=== PATIENT | male | born 1960 | race Caucasian/White ===

== ENCOUNTER 2018-07-26 21:58 | Emergency (ER) | payer SELFPAY ==
[~2018-07-26 21:58] MED LIST: ALBMDV INH; AZIT-9 PO; CEP500 PO; DIA5 PO; FAM20 PO; GABA300T3 PO; HYDR-653 PO; IBU800 PO; LOR05 PO; LOR5 PO; LOR75 PO; MUCINEX; NONE PER PATIENT; OXYC-865 PO; PER PO; PHEN240S3 PO; PRE20 PO
--- NOTE | 2018-07-26 22:09 | ER Report ---
History and Physical Time Seen By MD: 22:09 Hx. of Stated Complaint: PT HAS HAD A MIGAINE SINCE 2PM. HPI/ROS CHIEF COMPLAINT: Migraine headache HISTORY OF PRESENT ILLNESS: This is a 58-year-old male. He has had a migraine headache since about 1400 hrs. He has associated photophobia. He has had nausea with several episodes of vomiting as well. He does get migraine headaches and these symptoms are typical for him. The only other abnormal symptoms he has been having recently have been some chronic muscle cramping which she has been treating with eating bananas and drinking increase fluids. He denies any fevers or chills. No double vision. No weakness in the extremities and no symptoms of sensory deficits. REVIEW OF SYSTEMS: Respiratory: No cough, no dyspnea. Cardiovascular: No chest pain, no palpitations. Gastrointestinal: No abdominal pain. Musculoskeletal: No musculoskeletal pain other than the cramps as noted. Genitourinary: Normal urination. Allergies: Coded Allergies: tetracycline (Verified Allergy, Intermediate, ITCHING, 06/22/17) naproxen (Verified Adverse Reaction, Mild, RESTLESSNESS, 06/22/17) Home Meds Active Scripts Ketorolac Tromethamine (KETOROLAC TROMETHAMINE) 10 Mg Tab, 10 MG PO Q6H PRN for HEADACHE, #12 TAB 0 Refills Prov:DWAYNE NIEVES MD 07/26/18 Promethazine Hcl (PROMETHAZINE HCL) 25 Mg Tablet, 25 MG PO Q8H PRN for HEADACHE, #12 TAB 0 Refills Prov:DWAYNE NIEVES MD 07/26/18 Reported Medications Gabapentin Enacarbil (Horizant) 300 Mg Tab.er.24h, 300 MG PO BID 06/22/17 Reviewed Nurses Notes: Yes Hx Smoking: Yes Smoking Status: Current: Every Day Smoker Exposure to Second Hand Smoke?: Yes Constitutional Vital Sign - Last 24 Hours 07/26/18 07/26/18 07/26/18 07/26/18 22:02 22:02 22:58 23:00 Temp 97.9 Pulse 140 98 Resp 16 B/P (MAP) 134/113 134/113 (120) 129/87 (101) Pulse Ox 94 91 O2 Delivery Room Air Physical Exam General Appearance: Alert, mild acute distress due to the headache.[ ] Eyes: Pupils are equal, round and reactive to light. Extraocular movements are intact. No nystagmus. He does have photophobia. ENT: Normal oral mucosa. Moist mucous membranes. Neck: Neck is supple and non tender. Respiratory: Chest is non tender, lungs are clear to auscultation. Cardiac: regular rate and rhythm Neuro: Alert and oriented 3. No focal neurologic deficits noted. Musculoskeletal: Extremities have full range of motion. Non tender. Skin: No rashes or lesions. DIFFERENTIAL DIAGNOSIS: After history and physical exam differential diagnosis was considered for migraine headache Medical Decision Making Data Points Result Diagram: 07/26/18 2206 Laboratory Hematology Test 07/26/18 22:06 Sodium Level 139 mmol/L (137-145) Potassium Level 3.9 mmol/L (3.5-5.0) Chloride Level 104 mmol/L (98-107) Carbon Dioxide Level 26 mmol/L (22-30) Blood Urea Nitrogen 10 mg/dl (9-21) Creatinine 1.10 mg/dl (0.66-1.25) Glomerular Filtration Rate Calc > 60.0 Random Glucose 117 mg/dl (75-110) Calcium Level 9.5 mg/dl (8.4-10.2) Magnesium Level 2.2 mg/dl (1.7-2.2) Total Bilirubin 0.5 mg/dl (0.2-1.3) Aspartate Amino Transf (AST/SGOT) 74 U/L (0-35) Alanine Aminotransferase (ALT/SGPT) 67 U/L (0-56) Alkaline Phosphatase 57 U/L (0-126) Total Protein 7.8 g/dl (6.3-8.2) Albumin 4.5 g/dl (3.5-5.0) Chemistry Test 07/26/18 22:06 Glomerular Filtration Rate Calc > 60.0 Calcium Level 9.5 mg/dl (8.4-10.2) Magnesium Level 2.2 mg/dl (1.7-2.2) Total Bilirubin 0.5 mg/dl (0.2-1.3) Aspartate Amino Transf (AST/SGOT) 74 U/L (0-35) Alanine Aminotransferase (ALT/SGPT) 67 U/L (0-56) Alkaline Phosphatase 57 U/L (0-126) Total Protein 7.8 g/dl (6.3-8.2) Albumin 4.5 g/dl (3.5-5.0) ED Course/Re-evaluation Clinical Indication for ER IV: IV Access ED Course Patient did have significant improvement with IV normal saline 1 L, Phenergan 12.5 mg IV, and a jolt 25 mg IV, and Toradol 15 mg IV. He did have a little bit of a muscle twitching after the Phenergan but the pain is completely resolved. Metabolic panel and magnesium are negative. Decision to Disposition Date: Jul 26, 2018 Decision to Disposition Time: 23:27 Depart Departure Latest Vital Signs Vital Signs Date Time Temp Pulse Resp B/P (MAP) Pulse Ox O2 Delivery O2 Flow Rate FiO2 07/26/18 23:00 129/87 (101) 07/26/18 22:58 98 91 07/26/18 22:02 97.9 16 Room Air Impression: Primary Impression: Migraine Condition: Improved Disposition: HOME OR SELF-CARE New Scripts Ketorolac Tromethamine (KETOROLAC TROMETHAMINE) 10 Mg Tab 10 MG PO Q6H PRN for HEADACHE, #12 TAB 0 Refills Prov: DWAYNE NIEVES MD 07/26/18 Promethazine Hcl (PROMETHAZINE HCL) 25 Mg Tablet 25 MG PO Q8H PRN for HEADACHE, #12 TAB 0 Refills Prov: DWAYNE NIEVES MD 07/26/18 Patient Instructions: Migraine Headache (ED) Problem Qualifiers Primary Impression: Migraine Migraine type: unspecified Status migrainosus presence: without status m igrainosus Intractability: not intractable Qualified Codes: G43.909 - Migraine, unspecified, not intractable, without status migrainosus DWAYNE NIEVES MD Jul 26, 2018 22:09
[2018-07-26] MEDS ORDERED: PROMETHAZINE 25 MG/ML 1 ML AMP IVP ONE (22:20)
[2018-07-26] MEDS ORDERED: diphenhydrAMINE 50 MG/ML VIAL IVP ONE (22:20)
[2018-07-26] MEDS ORDERED: NS(*) 0.9% 1000 ML BAG 1,000 ML IV ONE (22:20)
[2018-07-26] MEDS ORDERED: KETOROLAC 30 MG/ML VIAL IVP ONE (22:20)
[2018-07-26 23:00] VITALS: BP 129/87
[2018-07-26] MEDS ORDERED: KET10 PO (23:28)
[2018-07-26] MEDS ORDERED: PROM-110 PO (23:28)
== END 2018-07-26 23:35 | disposition home or self-care (01) ==
LOC: ER 22:10
DX: G43.909 Migraine, unspecified, not intractable, without status migrainosus (principal); F17.210 Nicotine dependence, cigarettes, uncomplicated
CPT/HCPCS: 83735; 96361; 96374; 96375; 99284; J1200; J1885; J2550; J7030; 82040; 82247; 82310; 82374; 82435; 82565; 82947; 84075; 84132; 84155; 84295; 84450; 84460; 84520

== ENCOUNTER 2018-12-02 18:37 | Emergency (ER) | payer BC ==
[~2018-12-02 18:37] MED LIST changes: +KET10 PO; +PROM-110 PO
--- NOTE | 2018-12-02 18:44 | ER Report ---
History and Physical Time Seen By MD: 18:44 HPI/ROS CHIEF COMPLAINT: Decreased hearing HISTORY OF PRESENT ILLNESS: 58-year-old male with a history of COPD and hypertension presents with difficulty hearing. 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 He notes no cold symptoms. No rhinitis, no sore throat. No fever or chills. He denies ear pain, but tonight notes hearing loss. He describes a tinnitus type sensation in his left ear like a radio station is buzzing on the radio. Patient while being evaluated, has a tachycardia to heart rate of 150s. He is asymptomatic. He does not note that he has his heart rate. Review of his previous records shows an old EKG from 06/22/17 with a normal sinus rhythm of 85 bpm. She denies sympathomimetic stacks a [place] drinks to [place] per day. Patient denies drug use. Patient states he took his Symbicort inhaler which he thinks is causing his heart rate,. He has no chest pain, no dizziness REVIEW OF SYSTEMS: Respiratory: No cough, no dyspnea. Cardiovascular: No chest pain, no palpitations. Gastrointestinal: No vomiting, no abdominal pain. Musculoskeletal: No back pain. Allergies: Coded Allergies: tetracycline (Verified Allergy, Intermediate, ITCHING, 06/22/17) naproxen (Verified Adverse Reaction, Mild, RESTLESSNESS, 06/22/17) Home Meds Reported Medications Gabapentin Enacarbil (Horizant) 300 Mg Tab.er.24h, 300 MG PO BID 06/22/17 Discontinued Scripts Ketorolac Tromethamine (KETOROLAC TROMETHAMINE) 10 Mg Tab, 10 MG PO Q6H PRN for HEADACHE, #12 TAB 0 Refills Prov:DWAYNE NIEVES MD 07/26/18 Promethazine Hcl (PROMETHAZINE HCL) 25 Mg Tablet, 25 MG PO Q8H PRN for HEADACHE, #12 TAB 0 Refills Prov:DWAYNE NIEVES MD 07/26/18 Reviewed Nurses Notes: Yes Old Medical Records Reviewed: Yes Hx Smoking: Yes Smoking Status: Current: Every Day Smoker Exposure to Second Hand Smoke?: Yes Constitutional Vital Sign - Last 24 Hours 12/02/18 12/02/18 12/02/18 12/02/18 18:42 18:52 19:00 19:07 Temp 98.7 Pulse 154 153 153 Resp 16 17 11 B/P (MAP) 112/82 98/74 (82) Pulse Ox 93 92 91 O2 Delivery Room Air 12/02/18 12/02/18 12/02/18 12/02/18 19:22 19:30 19:37 19:52 Pulse 152 154 151 Resp 19 25 15 B/P (MAP) 95/83 (87) Pulse Ox 90 92 92 12/02/18 12/02/18 12/02/18 12/02/18 20:00 20:07 20:12 20:17 Pulse 151 150 150 Resp 14 13 9 B/P (MAP) 90/71 (77) Pulse Ox 89 90 92 12/02/18 20:22 Pulse 154 Resp 24 Intake and Output 12/02/18 12/02/18 12/03/18 15:00 23:00 07:00 Intake Total 1000 ml Balance 1000 ml Physical Exam Vital signs stable, afebrile, pulse ox normal, tachycardia to the 150s General Appearance: The patient is alert, has no immediate need for airway p rotection and no current signs of toxicity. No acute distress HEENT: Pupils equal and round no injection. TMs appear retracted without redness or fluid. Oropharynx without redness or exudate Respiratory: Chest is non tender, lungs are clear to auscultation. No wheezing or rails Cardiac: regular rate and rhythm, tachycardia to the 150s without murmur Gastrointestinal: Abdomen is soft and non tender, no masses, bowel sounds normal. Musculoskeletal: Neck: Neck is supple and non tender. No thyromegaly, no lymphadenopathy Extremities have full range of motion and are non tender. No edema, no calf tenderness Skin: No rashes or lesions. DIFFERENTIAL DIAGNOSIS: After history and physical exam differential diagnosis was considered for eustachian tube dysfunction, otitis media, tachycardia, SVT, reentrant tachycardia Medical Decision Making Data Points Result Diagram: 12/02/18191612/02/181916 Laboratory Hematology Test 12/02/18 19:17 Red Blood Count 3.73 M/uL (4.00-5.60) Mean Corpuscular Volume 104.2 fL (80.0-96.0) Mean Corpuscular Hemoglobin 35.0 pg (26.0-33.0) Mean Corpuscular Hemoglobin Concent 33.6 g/dL (32.0-36.0) Red Cell Distribution Width 14.8 % (11.5-14.5) Mean Platelet Volume 6.9 fL (7.2-11.1) Neutrophils (%) (Auto) 55.0 % (39.4-72.5) Lymphocytes (%) (Auto) 37.3 % (17.6-49.6) Monocytes (%) (Auto) 5.8 % (4.1-12.4) Eosinophils (%) (Auto) 1.7 % (0.4-6.7) Basophils (%) (Auto) 0.2 % (0.3-1.4) Nucleated RBC Relative Count (auto) 0.0 /100WBC Neutrophils # (Auto) 5.0 K/uL (2.0-7.4) Lymphocytes # (Auto) 3.4 K/uL (1.3-3.6) Monocytes # (Auto) 0.5 K/uL (0.3-1.0) Eosinophils # (Auto) 0.2 K/uL (0.0-0.5) Basophils # (Auto) 0.0 K/uL (0.0-0.1) Nucleated RBC Absolute Count (auto) 0.00 K/uL Sodium Level 141 mmol/L (137-145) Potassium Level 3.8 mmol/L (3.5-5.0) Chloride Level 107 mmol/L (98-107) Carbon Dioxide Level 25 mmol/L (22-30) Blood Urea Nitrogen 19 mg/dl (9-21) Creatinine 1.20 mg/dl (0.66-1.25) Glomerular Filtration Rate Calc > 60.0 Random Glucose 103 mg/dl (75-110) Calcium Level 8.8 mg/dl (8.4-10.2) Magnesium Level 2.0 mg/dl (1.7-2.2) Total Bilirubin 0.5 mg/dl (0.2-1.3) Aspartate Amino Transf (AST/SGOT) 38 U/L (0-35) Alanine Aminotransferase (ALT/SGPT) 46 U/L (0-56) Alkaline Phosphatase 61 U/L (0-126) Troponin I < 0.012 ng/ml B-Type Natriuretic Peptide 144 pg/ml (0-100) Total Protein 6.7 g/dl (6.3-8.2) Albumin 3.9 g/dl (3.5-5.0) Thyroid Stimulating Hormone (TSH) 1.22 uIU/ml (0.46-4.68) Chemistry Test 12/02/18 19:17 White Blood Count 9.1 k/uL (4.5-11.0) Red Blood Count 3.73 M/uL (4.00-5.60) Hemoglobin 13.0 g/dL (14.0-18.0) Hematocrit 38.8 % (42.0-52.0) Mean Corpuscular Volume 104.2 fL (80.0-96.0) Mean Corpuscular Hemoglobin 35.0 pg (26.0-33.0) Mean Corpuscular Hemoglobin Concent 33.6 g/dL (32.0-36.0) Red Cell Distribution Width 14.8 % (11.5-14.5) Platelet Count 237 K/uL (150-450) Mean Platelet Volume 6.9 fL (7.2-11.1) Neutrophils (%) (Auto) 55.0 % (39.4-72.5) Lymphocytes (%) (Auto) 37.3 % (17.6-49.6) Monocytes (%) (Auto) 5.8 % (4.1-12.4) Eosinophils (%) (Auto) 1.7 % (0.4-6.7) Basophils (%) (Auto) 0.2 % (0.3-1.4) Nucleated RBC Relative Count (auto) 0.0 /100WBC Neutrophils # (Auto) 5.0 K/uL (2.0-7.4) Lymphocytes # (Auto) 3.4 K/uL (1.3-3.6) Monocytes # (Auto) 0.5 K/uL (0.3-1.0) Eosinophils # (Auto) 0.2 K/uL (0.0-0.5) Basophils # (Auto) 0.0 K/uL (0.0-0.1) Nucleated RBC Absolute Count (auto) 0.00 K/uL Glomerular Filtration Rate Calc > 60.0 Calcium Level 8.8 mg/dl (8.4-10.2) Magnesium Level 2.0 mg/dl (1.7-2.2) Total Bilirubin 0.5 mg/dl (0.2-1.3) Aspartate Amino Transf (AST/SGOT) 38 U/L (0-35) Alanine Aminotransferase (ALT/SGPT) 46 U/L (0-56) Alkaline Phosphatase 61 U/L (0-126) Troponin I < 0.012 ng/ml B-Type Natriuretic Peptide 144 pg/ml (0-100) Total Protein 6.7 g/dl (6.3-8.2) Albumin 3.9 g/dl (3.5-5.0) Thyroid Stimulating Hormone (TSH) 1.22 uIU/ml (0.46-4.68) EKG/Imaging EKG Interpretation 12 lead EK Rhythm: Sinus tachycardia, rate 153 bpm, narrow complex with nonspecific interventricular conduction block is also short [place] interval noted [place]: normal QRS: normal ST segments: normal, comparison to previous EKG dated 06/22/17 normal sinus rhythm with normal morphology ED Course/Re-evaluation Clinical Indication for ER IV: IV Access ED Course Patient was admitted to an examination room. H&P was done. The differential diagnoses was considered. Patient presented for hearing loss in his bilateral ears. He has some chronic nasal congestion and a chronic cough secondary to COPD patient was noted to be tachycardic on his routine vital signs heart rate of 150. Patient denies any chest pain, shortness of breath or discomfort. He denies dizziness or syncope. Patient thinks its due to his recent use of his inhaler. Patient's ears are consistent with retractions [place] tubes have been on able to equalize. There is no erythema to suggest infection. There is no fluid behind the drums. Patient's advised to conservative treatment plan of Nasonex and Afrin. Since he is tachycardic was reluctant advised him to take decongestants orally. Patient had a peripheral IV established. An EKG was done documenting his rhythm. Patient's diagnostic laboratory studies were negative. He was treated with diltiazem 10 mg IV 3. With no change in his heart rhythm. I discussed further options treatment with the patient. He was reluctant to stick around her persistent delayed in any further diagnostic treatment. He is advised to follow-up with tx s primary care the treat his COPD for further evaluation and management of this tachycardia. Decision to Disposition Date: Dec 02, 2018 Decision to Disposition Time: 19:52 Depart Departure Latest Vital Signs Vital Signs Date Time Temp Pulse Resp B/P (MAP) Pulse Ox O2 Delivery O2 Flow Rate FiO2 12/02/18 20:22 154 24 12/02/18 20:17 92 12/02/18 20:00 90/71 (77) 12/02/18 18:42 98.7 Room Air Impression: Primary Impression: Eustachian tube dysfunction Additional Impressions: Tachycardia COPD (chronic obstructive pulmonary disease) Condition: Improved Disposition: HOME OR SELF-CARE Referrals: ROBERT RAGLAND MD, JR,CARMELA Lunsford MD Patient Instructions: Atrial Tachycardia (ED), Eustachian Tube Dysfunction (GEN) Additional Instructions: Use Nasonex cortisone spray for urinary is which can buy [id number] without prescription and Afrin decongestant spray for 3-4 days Follow-up with Dr. Ferguson if her hearing doesn't improve next week Follow-up with Dr. Ragland for further evaluation and treatment of her tachycardia. Problem Qualifiers Primary Impression: Eustachian tube dysfunction Laterality: bilateral Qualified Codes: H69.83 - Other specified disorders of eustachian tube, bilateral Additional Impressions: COPD (chronic obstructive pulmonary disease) COPD type: unspecified COPD Qualified Codes: J44.9 - Chronic obstructive pulmonary disease, unspecified DARYL PIÑA DO Dec 02, 2018 18:44
[2018-12-02] MEDS ORDERED: NS(*) 0.9% 1000 ML BAG 1,000 ML IV ONE (19:06)
[2018-12-02] MEDS ORDERED: DILTIAZEM 5 MG/ML 5ML IVPUSH IVP ONE ×2 (19:10→19:50)
[2018-12-02 19:38] LABS: PLATELET COUNT, AUTOMATED 237 K/uL (150-450)
[2018-12-02 20:00] VITALS: BP 90/71
--- NOTE | 2018-12-02 22:37 | EKG ---
[place] [facility] [place] NAME: SULEMAN CORREA : [id number] MR: [id number] V: [id number] EXAM DATE: ORDERING PHYSICIAN: DARYL PIÑA TECHNOLOGIST: MORRIS Test Reason : TACHY Blood Pressure : / mmHG Vent. Rate : 153 BPM Atrial Rate : 153 BPM P-R Int : 088 ms QRS Dur : 150 ms QT Int : 346 ms P-R-T Axes : 000 079 -81 degrees QTc Int : 552 ms Sinus tachycardia with short [place] Nonspecific intraventricular block Inferior infarct , age undetermined Abnormal ECG When compared with ECG of 22-JUN-2017 20:27, Rate is increased Confirmed by Sav Stanton ([id number]) on 12/03/2018 7:23:59 AM Referred By: AYANA Confirmed By:Sav Torre
== END 2018-12-02 20:28 | disposition home or self-care (01) ==
LOC: ER 18:46
DX: H69.83 Other specified disorders of Eustachian tube, bilateral (principal); J44.9 Chronic obstructive pulmonary disease, unspecified; R00.0 Tachycardia, unspecified; F17.200 Nicotine dependence, unspecified, uncomplicated
CPT/HCPCS: 83735; 83880; 84443; 84484; 85025; 93005; 96361; 96374; 96376; 99284; J3490; J7030; 82040; 82247; 82310; 82374; 82435; 82565; 82947; 84075; 84132; 84155; 84295; 84450; 84460; 84520

== ENCOUNTER 2018-12-20 21:24 | Inpatient (IN) | payer BC ==
[~2018-12-20] VITALS: Ht 182.9 cm; Wt 86.2 kg
--- NOTE | 2018-12-20 21:33 | ER Report ---
History and Physical Time Seen By MD: 21:33 Hx. of Stated Complaint: OUT OF SYMBICORT; STATES TROUBLE BREATHING HPI/ROS CHIEF COMPLAINT: Short of breath HISTORY OF PRESENT ILLNESS: This is a 58-year-old male. He has been short of breath for several days now. He feels this is because he is out of his Symbicort inhaler. Wheeze brought back to the room, his pulse is rapid at 150s. I was able to review his last note where he had eustachian tube dysfunction and at that time he had a rapid rate as well. It was run responsive to diltiazem IV boluses at that time and the patient elected to leave without further treatment. He does not know that his heart is racing and doesn't feel any palpitations or chest pain. Has never had any heart arrhythmias that he is aware of in the past. He denies any nausea or vomiting. No problem with bowel or bladder function. He does have some coughing at times that he attributes to his normal COPD. Allergies: Coded Allergies: tetracycline (Verified Allergy, Intermediate, ITCHING, 06/22/17) naproxen (Verified Adverse Reaction, Mild, RESTLESSNESS, 06/22/17) Home Meds Reported Medications Gabapentin Enacarbil (Horizant) 300 Mg Tab.er.24h, 300 MG PO BID 06/22/17 Reviewed Nurses Notes: Yes Hx Smoking: Yes Smoking Status: Current: Every Day Smoker Exposure to Second Hand Smoke?: Yes Constitutional Vital Sign - Last 24 Hours 12/20/18 12/20/18 12/20/18 12/20/18 21:24 21:28 21:29 21:45 Temp 97.9 Pulse ??? 154 Resp 17 B/P (MAP) 106/87 106/87 (93) 96/74 (81) Pulse Ox 92 O2 Delivery Room Air 12/20/18 12/20/18 12/20/18 12/20/18 21:54 21:58 22:00 22:15 Pulse 154 Resp 19 B/P (MAP) 97/76 (83) 104/78 (87) Pulse Ox 91 O2 Flow Rate 2.0 12/20/18 12/20/18 12/20/18 12/20/18 22:19 22:19 22:24 22:28 Pulse 152 152 152 Resp 18 13 18 Pulse Ox 95 98 O2 Delivery Nasal Cannula O2 Flow Rate 2.5 12/20/18 12/20/18 12/20/18 12/20/18 22:30 22:45 22:54 23:00 Pulse 152 Resp 20 B/P (MAP) 102/75 (84) 107/80 (89) 107/80 (89) Pulse Ox 97 12/20/18 12/20/18 12/20/18 12/20/18 23:15 23:20 23:30 23:45 Pulse 152 Resp 23 B/P (MAP) 101/79 (86) 108/82 (91) 104/77 (86) Pulse Ox 96 12/20/18 12/21/18 12/21/18 12/21/18 23:50 00:00 00:20 00:30 Pulse 153 150 Resp 28 19 B/P (MAP) 105/76 (86) 103/88 (93) Pulse Ox 95 94 12/21/18 12/21/18 12/21/18 12/21/18 01:00 01:20 01:20 01:30 Pulse 151 152 Resp 17 17 B/P (MAP) 108/84 (92) 89/78 (82) Pulse Ox 96 96 12/21/18 12/21/18 12/21/18 12/21/18 01:33 01:33 01:43 01:50 Pulse 152 152 149 Resp 18 18 11 Pulse Ox 93 95 O2 Delivery Nasal Cannula O2 Flow Rate 2.5 Physical Exam General Appearance: The patient is alert. No acute distress. Eyes: Pupils are equal, round. Reactive to light. No pallor, injection or icterus. Extraocular movements are intact. ENT: Mucous membranes are moist. Normal oral mucosa. Posterior oropharynx is normal. Neck: Supple and non tender. Respiratory: Lungs have a little bit of wheezing but are otherwise clear. There are no retractions or accessory muscle use. Cardiovascular: Heart is tachycardic rate of 152, regular. No murmurs, gallops or rubs. Normal capillary refill. Trace edema. Gastrointestinal: Abdomen is soft and non tender. Nondistended. Normal active bowel sounds. Neurological: Alert and oriented x3. Skin: Warm and dry. DIFFERENTIAL DIAGNOSIS: After history and physical exam, differential diagnosis was considered for patient with shortness of breath that appears like it's due to his rapid heart rate at this point. Looks like this could be SVT versus atrial flutter with rapid rate. Medical Decision Making Data Points Result Diagram: 12/20/18213512/20/182135 Laboratory Hematology Test 12/20/18 21:36 Red Blood Count 3.93 M/uL (4.00-5.60) Mean Corpuscular Volume 103.2 fL (80.0-96.0) Mean Corpuscular Hemoglobin 34.0 pg (26.0-33.0) Mean Corpuscular Hemoglobin Concent 33.0 g/dL (32.0-36.0) Red Cell Distribution Width 14.2 % (11.5-14.5) Mean Platelet Volume 7.0 fL (7.2-11.1) Neutrophils (%) (Auto) 72.4 % (39.4-72.5) Lymphocytes (%) (Auto) 19.8 % (17.6-49.6) Monocytes (%) (Auto) 5.5 % (4.1-12.4) Eosinophils (%) (Auto) 0.9 % (0.4-6.7) Basophils (%) (Auto) 1.4 % (0.3-1.4) Nucleated RBC Relative Count (auto) 0.0 /100WBC Neutrophils # (Auto) 8.7 K/uL (2.0-7.4) Lymphocytes # (Auto) 2.4 K/uL (1.3-3.6) Monocytes # (Auto) 0.7 K/uL (0.3-1.0) Eosinophils # (Auto) 0.1 K/uL (0.0-0.5) Basophils # (Auto) 0.2 K/uL (0.0-0.1) Nucleated RBC Absolute Count (auto) 0.00 K/uL Peripheral Blood Smear Yes Y/N D-Dimer Quantitative (PE/DVT) 0.30 ug/ml (0-0.50) Sodium Level 140 mmol/L (137-145) Potassium Level 3.8 mmol/L (3.5-5.0) Chloride Level 109 mmol/L (98-107) Carbon Dioxide Level 24 mmol/L (22-30) Blood Urea Nitrogen 22 mg/dl (9-21) Creatinine 1.20 mg/dl (0.66-1.25) Glomerular Filtration Rate Calc > 60.0 Random Glucose 82 mg/dl (75-110) Calcium Level 8.9 mg/dl (8.4-10.2) Total Bilirubin 0.4 mg/dl (0.2-1.3) Aspartate Amino Transf (AST/SGOT) 59 U/L (0-35) Alanine Aminotransferase (ALT/SGPT) 50 U/L (0-56) Alkaline Phosphatase 73 U/L (0-126) Troponin I < 0.012 ng/ml B-Type Natriuretic Peptide 210 pg/ml (0-100) Total Protein 7.1 g/dl (6.3-8.2) Albumin 4.2 g/dl (3.5-5.0) Chemistry Test 12/20/18 21:36 White Blood Count 12.1 k/uL (4.5-11.0) Red Blood Count 3.93 M/uL (4.00-5.60) Hemoglobin 13.4 g/dL (14.0-18.0) Hematocrit 40.5 % (42.0-52.0) Mean Corpuscular Volume 103.2 fL (80.0-96.0) Mean Corpuscular Hemoglobin 34.0 pg (26.0-33.0) Mean Corpuscular Hemoglobin Concent 33.0 g/dL (32.0-36.0) Red Cell Distribution Width 14.2 % (11.5-14.5) Platelet Count 252 K/uL (150-450) Mean Platelet Volume 7.0 fL (7.2-11.1) Neutrophils (%) (Auto) 72.4 % (39.4-72.5) Lymphocytes (%) (Auto) 19.8 % (17.6-49.6) Monocytes (%) (Auto) 5.5 % (4.1-12.4) Eosinophils (%) (Auto) 0.9 % (0.4-6.7) Basophils (%) (Auto) 1.4 % (0.3-1.4) Nucleated RBC Relative Count (auto) 0.0 /100WBC Neutrophils # (Auto) 8.7 K/uL (2.0-7.4) Lymphocytes # (Auto) 2.4 K/uL (1.3-3.6) Monocytes # (Auto) 0.7 K/uL (0.3-1.0) Eosinophils # (Auto) 0.1 K/uL (0.0-0.5) Basophils # (Auto) 0.2 K/uL (0.0-0.1) Nucleated RBC Absolute Count (auto) 0.00 K/uL Peripheral Blood Smear Yes Y/N D-Dimer Quantitative (PE/DVT) 0.30 ug/ml (0-0.50) Glomerular Filtration Rate Calc > 60.0 Calcium Level 8.9 mg/dl (8.4-10.2) Total Bilirubin 0.4 mg/dl (0.2-1.3) Aspartate Amino Transf (AST/SGOT) 59 U/L (0-35) Alanine Aminotransferase (ALT/SGPT) 50 U/L (0-56) Alkaline Phosphatase 73 U/L (0-126) Troponin I < 0.012 ng/ml B-Type Natriuretic Peptide 210 pg/ml (0-100) Total Protein 7.1 g/dl (6.3-8.2) Albumin 4.2 g/dl (3.5-5.0) Coagulation Test 12/20/18 21:36 D-Dimer Quantitative (PE/DVT) 0.30 ug/ml EKG/Imaging EKG Interpretation 12 lead EKG: Rhythm: Atrial flutter, rate 152 Imaging AP CHEST 12/20/2018 9:44 PM. INDICATION: Shortness of breath, tachycardia, history COPD. COMPARISON: 06/22/2017. FINDINGS: Lungs are hyperexpanded with diffuse bronchial wall thickening. Streaky left basilar opacity likely represents scarring. No pleural effusion or pneumothorax. Heart size is upper limit normal. IMPRESSION: Findings consistent with reported COPD and probable scarring at the left base. Underlying infectious or inflammatory airways disease not excluded, though there is no evidence of focal pneumonia. Report Dictated By: Mani Tadeo MD at 12/20/2018 11:12 PM ED Course/Re-evaluation Clinical Indication for ER IV: IV Access ED Course Initial attempted adenosine with 6 mg followed by 12 mg was unsuccessful at converting or even causing the heart. DuoNeb and Solu-Medrol were given to help with breathing to see if this would help without any change. Discussed causes of atrial flutter with the patient. Recommended admission. Gave diltiazem 25 mg IV bolus which did not slow the heart rate down at all. Discussed the case with Dr. Patel, hospitalist who came and evaluated the patient in the ER and accepted the patient for admission. Decision to Disposition Date: Dec 21, 2018 Decision to Disposition Time: 01:29 Depart Departure Latest Vital Signs Vital Signs Date Time Temp Pulse Resp B/P (MAP) Pulse Ox O2 Delivery O2 Flow Rate FiO2 12/21/18 01:50 149 11 95 12/21/18 01:33 Nasal Cannula 2.5 12/21/18 01:30 89/78 (82) 12/20/18 21:28 97.9 Impression: Primary Impression: Atrial flutter Condition: Condition Unchanged Disposition: Admitted from ER Problem Qualifiers Primary Impression: Atrial flutter Atrial flutter type: unspecified Qualified Codes: I48.92 - Unspecified atrial flutter DWAYNE NIEVES MD Dec 20, 2018 21:33
[2018-12-20] MEDS ORDERED: NS(*) 0.9% 1000 ML BAG 1,000 ML IV ONE (21:45)
[2018-12-20] MEDS ORDERED: ADENOSINE(*)IV SOLN 3MG/ML IVP ONE ×2 (21:45→22:10)
[2018-12-20 21:58] LABS: PLATELET COUNT, AUTOMATED 252 K/uL (150-450)
[2018-12-20] MEDS ORDERED: ALBUTEROL/IPRATROPIUM 3 ML NEB NEB ONE (22:10)
[2018-12-20] MEDS ORDERED: methylPREDNIS SUCC 125 MG/2ML IVP ONE (22:10)
--- NOTE | 2018-12-20 23:18 | EKG ---
FACILITY: PATIENT NAME: SULEMAN CORREA : [id number] MR: [id number] V: [id number] EXAM DATE: ORDERING PHYSICIAN: DWAYNE NIEVES TECHNOLOGIST: JANET Pop Reason : Blood Pressure : / mmHG Vent. Rate : 155 BPM Atrial Rate : 310 BPM P-R Int : 000 ms QRS Dur : 092 ms QT Int : 262 ms P-R-T Axes : 254 075 -42 degrees QTc Int : 420 ms Atrial flutter with RVR Low voltage QRS Abnormal ECG When compared with ECG of 02-DEC-2018 18:50, Relatively unchanged Confirmed by MOE PEREIRA ([id number]) on 12/21/2018 12:11:55 AM Referred By: Confirmed By:MOE PEREIRA
--- NOTE | 2018-12-20 23:19 | RADIOLOGY IMAGING REPORT ---
FACILITY: [facility] - [place] PATIENT NAME: Simone Wade : 1960 MR: [id number] V: [id number] EXAM DATE: ORDERING PHYSICIAN: DWAYNE NIEVES TECHNOLOGIST: Location: [facility] - [place] Patient: Simone Wade : 1960 Visit/Account:[id number] Date of Sevice: 12/20/2018 AP CHEST 12/20/2018 9:44 PM. INDICATION: Shortness of breath, tachycardia, history COPD. COMPARISON: 06/22/2017. FINDINGS: Lungs are hyperexpanded with diffuse bronchial wall thickening. Streaky left basilar opacity likely represents scarring. No pleural effusion or pneumothorax. Heart size is upper limit normal. IMPRESSION: Findings consistent with reported COPD and probable scarring at the left base. Underlyin g infectious or inflammatory airways disease not excluded, though there is no evidence of focal pneum onia. Report Dictated By: Mani Tadeo MD at 12/20/2018 11:12 PM Report E-Signed By: Mani Tadeo MD at 12/20/2018 11:14 PM WSN:[id number]
[2018-12-20] MEDS ORDERED: DIAZEPAM 2 MG TAB PO ONE (23:45)
[2018-12-20] MEDS ORDERED: DILTIAZEM 5 MG/ML 5ML IVPUSH IVP ONE (23:45)
[2018-12-21] MEDS ORDERED: ALBUTEROL/IPRATROPIUM 3 ML NEB NEB ONE (01:30)
[2018-12-21] MEDS ORDERED: FUROSEMIDE 20 MG/2 ML VIAL IVP ONE (01:55)
[2018-12-21] MEDS ORDERED: INFLUENZA VIRUS VAC 0.5ML SYR IM ONLY ONE (01:55)
[2018-12-21] MEDS ORDERED: LEVALBUTEROL 1.25 MG/3 ML NEB NEB PRN ×2 (01:55→20:25)
[2018-12-21] MEDS: NICOTINE 7 MG/24 HR PATCH TD SCH ×2 (01:55→09:00)
[2018-12-21] MEDS ORDERED: DILTIAZEM HCL 125 MG/25 ML SDV 125 MG in NS(*) 0.9% 100 ML BAG 100 ML IV PRN (01:55)
[2018-12-21] MEDS ORDERED: DILTIAZEM 5 MG/ML 5ML IVPUSH IVP ONE (01:55)
--- NOTE | 2018-12-21 02:23 | History & Physical ---
History of Present Illness History of Present Illness 58yo male with COPD who came to the ER for SOB. He has had SOB for about a month. He occasionally will have LE edema at the end of the day. Over 2 weeks ago, he was in the ER for eustachian tube dysfunction and was found to have an elevated heart rate of 150bpm. He was asymptomatic. It didn't respond to Dil tiazem 10mg IV x3. The patient wanted to go home and f/u with his PCP. He ran out of his Symbicort a couple of days ago and is more SOB. He continues to smoke about 5 cigarettes/day. He denies orthopnea/f/c/pnd/cp. No new medications or supplements. In the ER, he received a neb, adenosine 6mg and 12mg, and Diltiazem 25mg IV. Nothing helped his SOB nor slowed his heart rate down. History Problems: (1) COPD (chronic obstructive pulmonary disease) Status: Chronic (2) Carpal tunnel syndrome Status: Chronic (3) Cigarette smoker Status: Chronic Home Meds Reported Medications Gabapentin Enacarbil (Horizant) 300 Mg Tab.er.24h, 300 MG PO BID 06/22/17 Allergies: Coded Allergies: tetracycline (Verified Allergy, Intermediate, ITCHING, 06/22/17) naproxen (Verified Adverse Reaction, Mild, RESTLESSNESS, 06/22/17) Hx Smoking: Yes Smoking Status: Current: Every Day Smoker Exposure to Second Hand Smoke?: Yes Hx Alcohol Use: No Review of Systems All Systems Reviewed/Normal: Yes, Except as Noted Exam Vital Signs Vital Signs Date Time Temp Pulse Resp B/P (MAP) Pulse Ox O2 Delivery O2 Flow Rate FiO2 12/21/18 01:50 149 11 95 12/21/18 01:33 Nasal Cannula 2.5 12/21/18 01:30 89/78 (82) 12/20/18 21:28 97.9 General Appearance: Alert, Awake, Other (mild to moderate increased wob) Neuro: No Gross deficits Eyes: PERRLA ENT: Moist Mucous Membranes Cardiovascular: Other (Tachy, reg, no m/r/g) Respiratory: Other (Insp crackles to mid lungs) GI: Abd Soft and Non-Tender Extremities: No Edema Integumentary: No Jaundice, No Cyanosis Medical Decision Making Data Points Result Diagram: 3/09/28 213612/20/182135 Item Value Date Time B-Type Natriuretic Peptide 210 pg/ml H 12/20/182135 Troponin I < 0.012 ng/ml 12/20/182135 Total Bilirubin 0.4 mg/dl 12/20/182135 Aspartate Amino Transf (AST/SGOT) 59 U/L H 12/20/182135 Alanine Aminotransferase (ALT/SGPT) 50 U/L 12/20/182135 Alkaline Phosphatase 73 U/L 12/20/182135 Magnesium Level 2.0 mg/dl 12/02/181916 Hemoglobin 13.4 g/dL L 12/20/182135 Neutrophils (%) (Auto) 72.4 % 12/20/182135 Lymphocytes (%) (Auto) 19.8 % 12/20/182135 Monocytes (%) (Auto) 5.5 % 12/20/182135 Eosinophils (%) (Auto) 0.9 % 12/20/182135 Basophils (%) (Auto) 1.4 % 12/20/182135 EKG / Imaging EKG Interpretation Vent. Rate : 155 BPM Atrial Rate : 310 BPM P-R Int : 000 ms QRS Dur : 092 ms QT Int : 262 ms P-R-T Axes : 254 075 -42 degrees QTc Int : 420 ms Atrial flutter with RVR Low voltage QRS Abnormal ECG When compared with ECG of 02-DEC-2018 18:50, Relatively unchanged Confirmed by MOE PEREIRA ([id number]) on 12/21/2018 12:11:55 AM Imaging CXR - Findings consistent with reported COPD and probable scarring at the left base. Underlying infectious or inflammatory airways disease not excluded, though there is no evidence of focal pneumonia. Assessment and Plan Problems: (1) Atrial flutter Status: Acute Assessment & Plan: He presented with progressive SOB over about a month. He was in atrial flutter on 12/02 when in the ER. He reports a normal heart rate in October at a clinic appointment. He was asymptomatic, but now likely has some pulmonary edema related to the chronic tachycardia. He will be loaded with diltiazem 20mg and started on a drip at 15mg an hour. Likely, that will not be affective, so will start digoxin loading (because of low normal BP) 0.5mg, then 0.125mg 4 hours later. He will get an echo and TSH. He will be started on Eliquis for stroke prophylaxis, but will need to clear with his insurance before discharge. (2) Elevated brain natriuretic peptide (BNP) level Status: Acute Assessment & Plan: Secondary to RVR and pulmonary edema. Will follow with treatment of above. (3) COPD (chronic obstructive pulmonary disease) Status: Chronic Assessment & Plan: Lungs without wheezing. Continue chronic Symbicort, Spiriva. Will use prn Xopenex secondary to the atrial flutter. Nicotine patch at 7mg while in the hospital because he continues to smoke. (4) Cigarette smoker Status: Chronic Assessment & Plan: See above. Copies to: CATHERINE CRESPO APRN [employer] ; Venous Thromboembolism Antithrombotics Is Pt On Any Antithrombotics?: No Exam Sepsis Risk: No Definite Risk Problem Qualifiers (1) Atrial flutter: Atrial flutter type: unspecified Qualified Codes: I48.92 - Unspecified atrial flutter MOE PEREIRA MD Dec 21, 2018 02:23
[2018-12-21 02:45] VITALS: BP 93/69
[2018-12-21] MEDS ORDERED: BUDE10.2 INH (02:57)
[2018-12-21] MEDS ORDERED: TIO18R INH (02:57)
[2018-12-21] MEDS ORDERED: ALB6.7R INH (02:57)
[2018-12-21] MEDS ORDERED: DIGOXIN 0.5 MG/2 ML AMP IVP ONE ×3 (03:00→13:40)
[2018-12-21] MEDS ORDERED: NS 0.9% 500 ML VISIV BAG IV PRN (03:15)
[2018-12-21] MEDS ORDERED: NS(*) 0.9% 100 ML BAG 100 ML in NS(*) 0.9% 100 ML BAG 100 ML IVPB PRN (03:25)
[2018-12-21] MEDS ORDERED: NS(*) 0.9% 100 ML BAG 100 ML ONE (03:34)
[2018-12-21] MEDS: BUDESO/FORMOT 160/4.5 MCG 6 GM INH SCH ×3 (06:00→16:45)
[2018-12-21] MEDS: TIOTROPIUM BROM INH 18 MCG/CAP INH SCH (06:00)
[2018-12-21] MEDS ORDERED: NS(*) 0.9% 500 ML BAG 500 ML IV PRN (07:45)
[2018-12-21 08:21] VITALS: Ht 182.9 cm; Wt 86.2 kg
[2018-12-21] MEDS: GABAPENTIN 300 MG CAP PO SCH ×3 (08:29→20:30)
[2018-12-21] MEDS: POTASSIUM CHL 10 MEQ TABCR PO SCH ×2 (08:29→17:15)
[2018-12-21] MEDS: APIXABAN 2.5 MG TABLET PO SCH ×2 (08:30→20:31)
[2018-12-21] MEDS ORDERED: NS(*) 0.9% 250 ML BAG 250 ML in NS(*) 0.9% 250 ML BAG 250 ML IV SCH (09:00)
--- NOTE | 2018-12-21 10:17 | Hospitalist Progress Note ---
Subjective Progress Notes Subjective This patient was admitted for atrial flutter. He had no acute events since admission. Patient Complains of: Cardiovascular: No: Chest Pain Respiratory: No: Shortness of Breath Physical Exam Vital Signs Date Time Temp Pulse Resp B/P (MAP) Pulse Ox O2 Delivery O2 Flow Rate FiO2 12/21/18 08:00 82 12/21/18 08:00 Nasal Cannula 2.0 12/21/18 02:45 152 12/21/18 02:45 97.4 26 93/69 (77) Intake and Output 12/21/18 07:00 Intake Total 1000 ml Balance 1000 ml Intake IV Total 1000 ml # Voids 1 Cardiovascular: Other (Tachycardic.) Respiratory: Clear to Auscultation Extremities: No Edema Result Diagram: 12/20/18213512/20/182135 Assessment and Plan Problems: (1) Atrial flutter Status: Acute Assessment & Plan: He presented with progressive shortness of breath and was found to be in atrial flutter. He was initially placed on a diltiazem infusion, but was not responding to this. He was then placed on a digoxin load. We will continue with the digoxin this morning and try to wean off the diltiazem. He has been placed on Eliquis at admission, but was likely in Afib/flutter for at least a month prior to admission. He will need two weeks of anticoagulation prior to any attempts at cardioversion. (2) Elevated brain natriuretic peptide (BNP) level Status: Acute Assessment & Plan: An echocardiogram has been ordered. (3) COPD (chronic obstructive pulmonary disease) Status: Chronic Assessment & Plan: He is on chronic treatment with Symbicort and Spiriva. We have substituted Xopenex for his albuterol. (4) Cigarette smoker Status: Chronic Assessment & Plan: Smoking cessation. Exam Sepsis Risk: No Definite Risk Problem Qualifiers (1) Atrial flutter: Atrial flutter type: unspecified Qualified Codes: I48.92 - Unspecified atrial flutter BUBBA UMANA DO Dec 21, 2018 10:17
[2018-12-21 11:22] VITALS: BP 91/64
[2018-12-21 17:27] VITALS: BP 69/64
[2018-12-21 19:33] VITALS: BP 105/75
[2018-12-21] MEDS: NICOTINE 21 MG/24 HR PATCH TD SCH (20:52)
[2018-12-21 23:00] VITALS: BP 100/78
[2018-12-22] VITALS (7 sets, daily range): BP systolic 90–118; BP diastolic 69–86
[2018-12-22 05:10] LABS: PLATELET COUNT, AUTOMATED 227 K/uL (150-450)
[2018-12-22] MEDS: BUDESO/FORMOT 160/4.5 MCG 6 GM INH SCH ×3 (06:20→17:16)
[2018-12-22] MEDS: TIOTROPIUM BROM INH 18 MCG/CAP INH SCH (06:33)
[2018-12-22] MEDS ORDERED: METOPROLOL TART 5 MG/5 ML VIAL IVP ONE ×2 (08:10→14:00)
--- NOTE | 2018-12-22 08:24 | Hospitalist Progress Note ---
Subjective Progress Notes Subjective He has some persistent dyspnea and hypoxia requiring 4L O2. HR has continued at 150 with a-flutter 2:1 block. Physical Exam Vital Signs Date Time Temp Pulse Resp B/P (MAP) Pulse Ox O2 Delivery O2 Flow Rate FiO2 12/22/18 06:25 151 12/22/18 05:06 98.2 20 118/86 (97) 95 Nasal Cannula 4.0 Intake and Output 12/22/18 06:59 Intake Total 1265 ml Balance 1265 ml Intake Oral 1140 ml IV Total 125 ml # Voids 4 General Appearance: Alert, Awake Cardiovascular: Other (Tachycardic regular no murmur noted) Respiratory: Other (few rales at bases with soft expiratory wheeze) Chest: No Tenderness GI: Soft and Non-Tender Extremities: Warm, Perfused Integumentary: Skin Intact without Lesion / Mass Psych: Alert & Oriented X3 Result Diagram: 12/22/18 0504 12/22/18 0504 Assessment and Plan Problems: (1) Atrial flutter Status: Acute Assessment & Plan: He presented with progressive shortness of breath and was found to be in atrial flutter. He was initially placed on a diltiazem infusion, but was hypotensive and not responding to this. He was then given a digoxin load. We will continue with the digoxin and try a dose of metoprolol. He has been placed on Eliquis at admission, but was likely in A-fib/flutter for at least a month prior to admission. He will likely need two weeks of anticoagulation prior to cardioversion. Unfortunately, we have not been able to gain rate control. Will discuss further with cardiology regarding other options for rate control and possible early cardioversion. Big question would be risk of embolization with cardioversion after short term anticoagulation vs. continued HR in 150s without rate control. (2) Elevated brain natriuretic peptide (BNP) level Status: Acute Assessment & Plan: Echocardiogram results are pending. (3) COPD (chronic obstructive pulmonary disease) Status: Chronic Assessment & Plan: He is on chronic treatment with albuterol, Symbicort and Spiriva. We have substituted Xopenex for his albuterol. (4) Cigarette smoker Status: Chronic Assessment & Plan: He states he has quit ("it's been 2 days now"). Smoking cessation. Exam Sepsis Risk: No Definite Risk Problem Qualifiers (1) Atrial flutter: Atrial flutter type: unspecified Qualified Codes: I48.92 - Unspecified atrial flutter JOSE JUAN EDWARDS MD Dec 22, 2018 08:24
[2018-12-22] MEDS: APIXABAN 2.5 MG TABLET PO SCH ×2 (08:30→20:51)
[2018-12-22] MEDS: GABAPENTIN 300 MG CAP PO SCH ×3 (08:30→20:51)
--- NOTE | 2018-12-22 08:37 | RADIOLOGY IMAGING REPORT ---
FACILITY: [facility] - [place] PATIENT NAME: Simone Wade : 1960 MR: [id number] V: [id number] EXAM DATE: ORDERING PHYSICIAN: JOSE JUAN EDWARDS TECHNOLOGIST: [facility] [place] Patient: Simone Wade : 1960 Visit/Account:[id number] Date of Sevice: 12/22/2018 Technique: CHEST SINGLE AP HISTORY: cough/elevated wbc count Comparison studies: Chest radiograph December 20, 2018 FINDINGS: Diffuse increased interstitial lung markings are noted throughout the lungs. There is left basilar and right midlung scarring or atelectasis. The cardiac silhouette is unchanged. IMPRESSION: 1. Chronic lung findings as above. No acute cardiopulmonary process. Report Dictated By: Marky Cohen DO at 12/22/2018 8:31 AM Report E-Signed By: Marky Cohen DO at 12/22/2018 8:34 AM WSN:[id number]
[2018-12-22] MEDS: DIGOXIN 0.25 MG TAB PO SCH (09:20)
[2018-12-22] MEDS: METOPROLOL TART 50 MG TAB PO SCH ×2 (09:25→20:53)
[2018-12-22] MEDS: cefTRIAXone 1 GM VIAL IVP SCH (09:27)
[2018-12-22] MEDS: NICOTINE 21 MG/24 HR PATCH TD SCH (20:52)
[2018-12-23 03:20] VITALS: BP 102/84
[2018-12-23] MEDS: BUDESO/FORMOT 160/4.5 MCG 6 GM INH SCH (05:07)
[2018-12-23] MEDS: TIOTROPIUM BROM INH 18 MCG/CAP INH SCH (05:07)
[2018-12-23 06:04] LABS: PLATELET COUNT, AUTOMATED 254 K/uL (150-450)
[2018-12-23] MEDS ORDERED: METO-253 PO (06:12)
[2018-12-23] MEDS ORDERED: DIGO125T73 PO (06:12)
[2018-12-23] MEDS ORDERED: APIX5TAB PO (06:12)
--- NOTE | 2018-12-23 06:23 | Hospitalist Depart ---
Discharge Summary Reason for Hosp/Final Diag: (1) Atrial flutter Status: Acute Hospital Course & Plan: He presented with progressive shortness of breath and was found to be in atrial flutter with 2:1 block with heart rate 150. He was initially placed on an IV diltiazem infusion, but became hypotensive and his HR did not respond to the diltiazem. He was then given a digoxin load. We also tried starting metoprolol. He was placed on Eliquis as well. Unfortunately, we were not been able to gain rate control. He has likely been in a-fib/flutter for upwards of a month prior to admission. He will need extended anticoagulation prior to cardioversion. The case was discussed further with cardiology (Dr. Proctor). He recommended transfer to [facility] for transesophageal echocardiogram and possible cardioversion vs. ablation. (2) COPD (chronic obstructive pulmonary disease) Status: Chronic Hospital Course & Plan: He is on chronic treatment with albuterol, Symbicort and Spiriva. We substituted Xopenex for his albuterol during his stay. (3) Cigarette smoker Status: Chronic Hospital Course & Plan: He states he has quit ("it's been 2 days now"). Smoking cessation. Departure Weight (Pounds): 190 Result Diagram: 12/23/18 0531 12/22/18 0504 Item Value Date Time White Blood Count 12.1 k/uL H 12/20/18 213 Hemoglobin 13.4 g/dL L 12/20/18 2136 Hematocrit 40.5 % L 12/20/182135 Platelet Count 252 K/uL 12/20/18 2136 Sodium Level 140 mmol/L 12/20/18 2136 Potassium Level 3.8 mmol/L 12/20/18 2136 Chloride Level 109 mmol/L H 12/20/18 2136 Carbon Dioxide Level 24 mmol/L 12/20/18 2136 Blood Urea Nitrogen 22 mg/dl H 12/20/18 2136 Creatinine 1.20 mg/dl 12/20/18 2136 Glomerular Filtration Rate Calc > 60.0 12/20/182135 Random Glucose 82 mg/dl 12/20/18 2136 Calcium Level 8.9 mg/dl 12/20/18 2136 Total Bilirubin 0.4 mg/dl 12/20/18 2136 Aspartate Amino Transf (AST/SGOT) 59 U/L H 12/20/182135 Alanine Aminotransferase (ALT/SGPT) 50 U/L 12/20/182135 Alkaline Phosphatase 73 U/L 12/20/182135 Troponin I < 0.012 ng/ml 12/20/182135 Total Protein 7.1 g/dl 12/20/182135 Albumin 4.2 g/dl 12/20/182135 B-Type Natriuretic Peptide 210 pg/ml H 12/20/182135 Thyroid Stimulating Hormone (TSH) 1.22 uIU/ml 12/02/181916 Albumin 3.5 g/dl 12/23/18 0531 Total Protein 6.1 g/dl L 12/23/18 0531 Alkaline Phosphatase 69 U/L 12/23/18 0531 Alanine Aminotransferase (ALT/SGPT) 52 U/L 12/23/18 0531 Aspartate Amino Transf (AST/SGOT) 28 U/L 12/23/18 0531 Total Bilirubin 0.3 mg/dl 12/23/18 0531 Calcium Level 8.9 mg/dl 12/23/18 0531 D-Dimer Quantitative (PE/DVT) 0.30 ug/ml 12/20/182135 Imaging PATIENT NAME: Simone Correa : 1960 MR: [id number] V: [id number] EXAM DATE: ORDERING PHYSICIAN: DWAYNE NIEVES TECHNOLOGIST: Location: Patient: Simone Correa : 1960 Visit/Account:[id number] Date of Sevice: 12/20/2018 AP CHEST 12/20/2018 9:44 PM. INDICATION: Shortness of breath, tachycardia, history COPD. COMPARISON: 06/22/2017. FINDINGS: Lungs are hyperexpanded with diffuse bronchial wall thickening. Streaky left basilar opacity likely represents scarring. No pleural effusion or pn eumothorax. Heart size is upper limit normal. IMPRESSION: Findings consistent with reported COPD and probable scarring at the left base. Underlying infectious or inflammatory airways disease not excluded, though there is no evidence of focal pneumonia. Report Dictated By: Mani Tadeo MD at 12/20/2018 11:12 PM Report E-Signed By: Mani Tadeo MD at 12/20/2018 11:14 PM WSN:[id number] PATIENT NAME: Simone Correa : 1960 MR: [id number] V: [id number] EXAM DATE: [id number] ORDERING PHYSICIAN: JOSE JUAN EDWARDS TECHNOLOGIST: Location: Patient: Simone Correa : 1960 Visit/Account:[id number] Date of Sevice: 12/22/2018 Technique: CHEST SINGLE AP HISTORY: cough/elevated wbc count Comparison studies: Chest radiograph December 20, 2018 FINDINGS: Diffuse increased interstitial lung markings are noted throughout the lungs. There is left basilar and right midlung scarring or atelectasis. The cardiac silhouette is unchanged. IMPRESSION: 1. Chronic lung findings as above. No acute cardiopulmonary process. Report Dictated By: Marky Cohen DO at 12/22/2018 8:31 AM Report E-Signed By: Marky Cohen DO at 12/22/2018 8:34 AM WSN:[id number] EKG PATIENT NAME: SIMONE CORREA : [id number] MR: [id number] V: [id number] EXAM DATE: ORDERING PHYSICIAN: DWAYNE NIEVES TECHNOLOGIST: JANET Pop Reason : Blood Pressure : / mmHG Vent. Rate : 155 BPM Atrial Rate : 310 BPM P-R Int : 000 ms QRS Dur : 092 ms QT Int : 262 ms P-R-T Axes : 254 075 -42 degrees QTc Int : 420 ms Atrial flutter with RVR Low voltage QRS Abnormal ECG When compared with ECG of 02-DEC-2018 18:50, Relatively unchanged Confirmed by MOE PEREIRA ([id number]) on 12/21/2018 12:11:55 AM Referred By: Confirmed By:MOE PEREIRA Condition: No Change Discharge: Another Hospital ([facility]) Time Spent: > 30 min Discharge Instructions Home Meds Active Scripts Digoxin (DIGOXIN) 125 Mcg Tablet, 125 MCG PO DAILY for 30 Days, #30 TAB 1 Refill Prov:JOSE JUAN EDWARDS MD 12/23/18 Apixaban (ELIQUIS) 5 Mg Tablet, 5 MG PO BID for 30 Days, #60 TAB 1 Refill Prov:JOSE JUAN EDWARDS MD 12/23/18 Metoprolol Tartrate (METOPROLOL TARTRATE) 50 Mg Tab, 25 MG PO BID for 30 Days, #30 TAB 1 Refill Prov:JOSE JUAN EDWARDS MD 12/23/18 Reported Medications Albuterol Sulfate (PROVENTIL HFA) 6.7 Gm Inh, 1-2 PUFF INH 3-4XD PRN for SHORTNESS OF BREATH, INH 12/21/18 Tiotropium [place] (SPIRIVA) 18 Mcg/Cap Inh, 18 MCG INH DAILY, INH 12/21/18 Budesonide/Formoterol Fumarate (SYMBICORT 160-4.5 MCG INHALER) 10.2 Gm Inh, 10.2 GM INH BID, INH 12/21/18 Gabapentin Enacarbil (Horizant) 300 Mg Tab.er.24h, 300 MG PO BID 06/22/17 Diet: Regular Activity: As Tolerated Special Instructions: He will be transferred to [facility] for further evaluation and treatment of his atrial flutter with rapid ventricular response. Venous Thromboembolism Antithrombotics Is Pt On Any Antithrombotics?: No Problem Qualifiers (1) Atrial flutter: Atrial flutter type: unspecified Qualified Codes: I48.92 - Unspecified atrial flutter JOSE JUAN EDWARDS MD Dec 23, 2018 06:23
[2018-12-23 07:28] VITALS: BP 97/80
[2018-12-23] MEDS: DIGOXIN 0.25 MG TAB PO SCH (08:37)
[2018-12-23] MEDS: GABAPENTIN 300 MG CAP PO SCH (08:38)
[2018-12-23] MEDS: METOPROLOL TART 50 MG TAB PO SCH (08:38)
[2018-12-23] MEDS: APIXABAN 2.5 MG TABLET PO SCH (08:38)
[2018-12-23] MEDS: cefTRIAXone 1 GM VIAL IVP SCH (08:40)
== END 2018-12-23 09:01 | disposition short-term general hospital (02) | DRG 310 ==
LOC: ER 21:30 → ICU 12-21 02:29 → MED 12-22 18:00
PROVIDERS: ADMIT Internal Medicine; ATTEND Internal Medicine
DX: I48.92 Unspecified atrial flutter (principal); J44.9 Chronic obstructive pulmonary disease, unspecified; F17.210 Nicotine dependence, cigarettes, uncomplicated; T48.6X6A Underdosing of antiasthmatics, initial encounter; R09.02 Hypoxemia; G56.00 Carpal tunnel syndrome, unspecified upper limb; Z91.128 Patient's intentional underdosing of medication regimen for other reason; Z88.8 Allergy status to other drugs, medicaments and biological substances
CPT/HCPCS: 36415; 71045; 82040; 82247; 82310; 82374; 82435; 82565; 82947; 83880; 84075; 84132; 84155; 84295; 84450; 84460; 84484; 84520; 85025; 85379; 93005; 93306; 94640; 96361; 96374; 96375; 96376; 99285; J0153; J0696; J1160; J1940; J2930; J3490; J3535; J7030; J7040; J7050

== ENCOUNTER → 2018-12-23 | Outpatient (CLI) | payer BC ==
[2018-12-21 08:21] VITALS: BMI 25.8
[~2018-12-23] MED LIST changes: +ALB6.7R INH; +APIX5TAB PO; +BUDE10.2 INH; +DIGO125T73 PO; +METO-253 PO; +TIO18R INH
== END ==
LOC: AMB 08:48
PROVIDERS: ATTEND Nurse Practitioner
DX: I48.92 Unspecified atrial flutter (principal); R06.00 Dyspnea, unspecified
CPT/HCPCS: A0425; A0426

== ENCOUNTER → 2019-01-05 | Outpatient (CLI) | payer BC ==
[2018-12-21 08:21] VITALS: BMI 25.8
== END ==
LOC: US 01:07
PROVIDERS: ATTEND Nurse Practitioner Family
DX: I31.3 Pericardial effusion (noninflammatory) (principal)
CPT/HCPCS: 93308

== ENCOUNTER 2019-01-17 09:23 | Emergency (ER) | payer BC ==
[2018-12-21 08:21] VITALS: Wt 86.2 kg
[~2019-01-17 09:23] MED LIST changes: -METO25TA91 PO
--- NOTE | 2019-01-17 09:26 | ER Report ---
History and Physical Time Seen By MD: 09:25 HPI/ROS CHIEF COMPLAINT: Irregular heart rate HISTORY OF PRESENT ILLNESS: Patient is a 58-year-old male with a history of cardiac ablation on December 22 after the patient was transferred from here with atrial fibrillation RVR. Patient was initially hospitalized, placed on diltiazem per patient report, transferred down to [facility] ([place], [place]) for further evaluation at which time a cardiac ablation was completed. Patient was seen today for a follow-up echocardiogram because the patient developed a pericardial effusion suspected to be secondary to the ablation as the patient continued his blood thinning medications. Echo today showed decreased pericardial effusion, EF was noted to be 38%. Patient reports that he feels normal with no chest pain, shortness breath, chest pressure, fatigue, no cough. He does have a history of COPD currently on Symbicort and he does take gabapentin reportedly for his chronic pain. Patient was sent into the emergency department because he was found to be in A. fib RVR. Patient was noted to be hypotensive at time of evaluation with systolic 87/62. REVIEW OF SYSTEMS: Constitutional: No fever, no chills. Eyes: No discharge. ENT: No sore throat. Cardiovascular: No chest pain, no palpitations. Respiratory: No cough, no shortness of breath. Gastrointestinal: No abdominal pain, no vomiting. Genitourinary: No hematuria. Musculoskeletal: No back pain. Skin: No rashes. Neurological: No headache. Allergies: Coded Allergies: tetracycline (Verified Allergy, Intermediate, ITCHING, 06/22/17) naproxen (Verified Adverse Reaction, Mild, RESTLESSNESS, 06/22/17) Home Meds Active Scripts Apixaban (ELIQUIS) 5 Mg Tablet, 5 MG PO BID for 30 Days, #60 TAB 3 Refills Prov:CARLITO CANELA DO 01/17/19 Metoprolol Succinate (TOPROL XL) 25 Mg Tab.er.24h, 1 TAB PO QDAY for 30 Days, #30 TAB 3 Refills Prov:CARLITO CANELA DO 01/17/19 Metoprolol Tartrate (METOPROLOL TARTRATE) 50 Mg Tab, 25 MG PO BID for 30 Days, #30 TAB 1 Refill Prov:JOSE JUAN EDWARDS MD 12/23/18 Reported Medications Albuterol Sulfate (PROVENTIL HFA) 6.7 Gm Inh, 1-2 PUFF INH 3-4XD PRN for SHORTNESS OF BREATH, INH 12/21/18 Budesonide/Formoterol Fumarate (SYMBICORT 160-4.5 MCG INHALER) 10.2 Gm Inh, 10.2 GM INH BID, INH 12/21/18 Gabapentin Enacarbil (Horizant) 300 Mg Tab.er.24h, 300 MG PO BID 06/22/17 Discontinued Reported Medications Tiotropium [place] (SPIRIVA) 18 Mcg/Cap Inh, 18 MCG INH DAILY, INH 12/21/18 Discontinued Scripts Digoxin (DIGOXIN) 125 Mcg Tablet, 125 MCG PO DAILY for 30 Days, #30 TAB 1 Refill Prov:JOSE JUAN EDWARDS MD 12/23/18 Apixaban (ELIQUIS) 5 Mg Tablet, 5 MG PO BID for 30 Days, #60 TAB 1 Refill Prov:JOSE JUAN EDWARDS MD 12/23/18 Hx Smoking: Yes (5-10day) Smoking Status: Current: Every Day Smoker, Light Tobacco Smoker Exposure to Second Hand Smoke?: Yes Hx Substance Use Disorder: No Hx Alcohol Use: No Constitutional Vital Sign - Last 24 Hours 01/17/19 01/17/19 01/17/19 01/17/19 09:23 09:27 09:30 09:30 Temp 98.3 Pulse 178 94 Resp 18 16 B/P (MAP) 94/84 (87) 85/70 (75) 85/70 Pulse Ox 90 96 O2 Delivery Room Air 01/17/19 01/17/19 01/17/19 01/17/19 09:40 09:45 09:53 09:58 Pulse 145 Resp 21 B/P (MAP) 87/62 (70) 96/77 (83) Pulse Ox 91 O2 Flow Rate 2.0 01/17/19 01/17/19 01/17/19 01/17/19 10:00 10:05 10:13 10:15 Pulse 146 Resp 15 18 B/P (MAP) 89/43 (58) 106/52 (70) Pulse Ox 96 95 O2 Delivery Nasal Cannula O2 Flow Rate 2 01/17/19 01/17/19 01/17/19 01/17/19 10:30 10:35 10:45 10:48 Pulse 135 120 Resp 19 18 B/P (MAP) 93/82 (86) 109/84 (92) Pulse Ox 98 98 O2 Delivery Nasal Cannula Nasal Cannula 01/17/19 01/17/19 01/17/19 01/17/19 10:50 11:00 11:05 11:15 Pulse 90 64 Resp 37 16 B/P (MAP) 92/76 (81) 98/77 (84) Pulse Ox 97 95 O2 Delivery Nasal Cannula Physical Exam General Appearance: The patient is alert, has no immediate need for airway protection and no signs of toxicity. No acute distress Eyes: Pupils equal and round no pallor or injection. ENT, Mouth: Mucous membranes are moist. Respiratory: There are no retractions, lungs are clear to auscultation. Cardiovascular:+ Rapid rate, irregularly irregular, hypotensive Gastrointestinal: Abdomen is soft and non tender, no masses, bowel sounds normal. Neurological: No focal neurological deficits Skin: Warm and dry, no rashes. Musculoskeletal: Neck is supple non tender. Extremities are nontender, nonswollen and have full range of motion. DIFFERENTIAL DIAGNOSIS: After history and physical exam differential diagnosis was considered for chest pain including but not limited to myocardial ischemia, pericarditis pulmonary embolus, chest wall pain, pleural inflammation and pulmonary infectious causes. Dehydration, anemia Medical Decision Making Data Points Result Diagram: 01/17/19 0937 01/17/19 0937 Laboratory Hematology Test 01/17/19 09:37 Red Blood Count 4.27 M/uL (4.00-5.60) Mean Corpuscular Volume 102.9 fL (80.0-96.0) Mean Corpuscular Hemoglobin 33.9 pg (26.0-33.0) Mean Corpuscular Hemoglobin Concent 32.9 g/dL (32.0-36.0) Red Cell Distribution Width 14.3 % (11.5-14.5) Mean Platelet Volume 7.0 fL (7.2-11.1) Neutrophils (%) (Auto) 58.0 % (39.4-72.5) Lymphocytes (%) (Auto) 35.2 % (17.6-49.6) Monocytes (%) (Auto) 6.1 % (4.1-12.4) Eosinophils (%) (Auto) 0.5 % (0.4-6.7) Basophils (%) (Auto) 0.2 % (0.3-1.4) Nucleated RBC Relative Count (auto) 0.1 /100WBC Neutrophils # (Auto) 4.7 K/uL (2.0-7.4) Lymphocytes # (Auto) 2.9 K/uL (1.3-3.6) Monocytes # (Auto) 0.5 K/uL (0.3-1.0) Eosinophils # (Auto) 0.0 K/uL (0.0-0.5) Basophils # (Auto) 0.0 K/uL (0.0-0.1) Nucleated RBC Absolute Count (auto) 0.01 K/uL Prothrombin Time 13.9 seconds (12.0-14.4) Prothromb Time International Ratio 1.07 Activated Partial Thromboplast Time 33 seconds (23-35) Sodium Level 141 mmol/L (137-145) Potassium Level 4.2 mmol/L (3.5-5.0) Chloride Level 106 mmol/L (98-107) Carbon Dioxide Level 25 mmol/L (22-30) Blood Urea Nitrogen 15 mg/dl (9-21) Creatinine 1.10 mg/dl (0.66-1.25) Glomerular Filtration Rate Calc > 60.0 Random Glucose 130 mg/dl (75-110) Calcium Level 9.1 mg/dl (8.4-10.2) Total Bilirubin 0.8 mg/dl (0.2-1.3) Aspartate Amino Transf (AST/SGOT) 37 U/L (0-35) Alanine Aminotransferase (ALT/SGPT) 29 U/L (0-56) Alkaline Phosphatase 61 U/L (0-126) Troponin I < 0.012 ng/ml B-Type Natriuretic Peptide 703 pg/ml (0-100) Total Protein 7.3 g/dl (6.3-8.2) Albumin 4.2 g/dl (3.5-5.0) Chemistry Test 01/17/19 09:37 White Blood Count 8.2 k/uL (4.5-11.0) Red Blood Count 4.27 M/uL (4.00-5.60) Hemoglobin 14.5 g/dL (14.0-18.0) Hematocrit 44.0 % (42.0-52.0) Mean Corpuscular Volume 102.9 fL (80.0-96.0) Mean Corpuscular Hemoglobin 33.9 pg (26.0-33.0) Mean Corpuscular Hemoglobin Concent 32.9 g/dL (32.0-36.0) Red Cell Distribution Width 14.3 % (11.5-14.5) Platelet Count 260 K/uL (150-450) Mean Platelet Volume 7.0 fL (7.2-11.1) Neutrophils (%) (Auto) 58.0 % (39.4-72.5) Lymphocytes (%) (Auto) 35.2 % (17.6-49.6) Monocytes (%) (Auto) 6.1 % (4.1-12.4) Eosinophils (%) (Auto) 0.5 % (0.4-6.7) Basophils (%) (Auto) 0.2 % (0.3-1.4) Nucleated RBC Relative Count (auto) 0.1 /100WBC Neutrophils # (Auto) 4.7 K/uL (2.0-7.4) Lymphocytes # (Auto) 2.9 K/uL (1.3-3.6) Monocytes # (Auto) 0.5 K/uL (0.3-1.0) Eosinophils # (Auto) 0.0 K/uL (0.0-0.5) Basophils # (Auto) 0.0 K/uL (0.0-0.1) Nucleated RBC Absolute Count (auto) 0.01 K/uL Prothrombin Time 13.9 seconds (12.0-14.4) Prothromb Time International Ratio 1.07 Activated Partial Thromboplast Time 33 seconds (23-35) Glomerular Filtration Rate Calc > 60.0 Calcium Level 9.1 mg/dl (8.4-10.2) Total Bilirubin 0.8 mg/dl (0.2-1.3) Aspartate Amino Transf (AST/SGOT) 37 U/L (0-35) Alanine Aminotransferase (ALT/SGPT) 29 U/L (0-56) Alkaline Phosphatase 61 U/L (0-126) Troponin I < 0.012 ng/ml B-Type Natriuretic Peptide 703 pg/ml (0-100) Total Protein 7.3 g/dl (6.3-8.2) Albumin 4.2 g/dl (3.5-5.0) Coagulation Test 01/17/19 09:37 Prothrombin Time 13.9 seconds Prothromb Time International Ratio 1.07 Activated Partial Thromboplast Time 33 seconds EKG/Imaging EKG Interpretation 12 lead EKG: Atrial fibrillation, RVR, ventricular rate 160, QTC 407, no ischemic changes Rhythm: Atrial fibrillation [place]: normal QRS: normal ST segments: normal 12 lead EKG: Junctional rhythm transitioned to NSR with concordinate P waves preceding QRS rate 63, QTC 399, no ischemic changes or arrhythmias present. Rhythm: normal sinus rhythm [place]: normal QRS: normal ST segments: normal Monitor Interpretation: Atrial Fibrillation Imaging PATIENT NAME: Simone Wade : 1960 MR: [id number] V: [id number] EXAM DATE: ORDERING PHYSICIAN: CARLITO CANELA TECHNOLOGIST: [place] [facility] [place]one [place] : 1960 Visit/Account:[id number] Date of Sevice: 01/17/2019 CHEST SINGLE AP History: Chest Pain FINDINGS: Comparison studies: Comparison chest x-rays dated from 12/22/2018 back to 10/18/2012 Tubes and Lines: None. Lungs and pleura: There may be a component of chronic interstitial lung disease with mildly prominent pulmonary interstitium again notes for back is 2012. However, in comparison to the recent December 2018 examination there does appear to be some interval improvement suggesting there may have been an acute pneumonitis or mild pulmonary edema superimposed upon chronic lung disease on the prior study. No focal consolidation. Mediastinum: normal. Cardiac silhouette: normal . Osseous structures: Unremarkable for age . IMPRESSION: Interval improvement from most recent examination suggesting resolving pulmonary edema or pneumonitis. As mentioned above, however, findings are suspicious for mild underlying chronic interstitial lung disease. Correlate with symptoms or pulmonary function tests and if abnormal consider high- resolution chest CT for further evaluation. ED Course/Re-evaluation Clinical Indication for ER IV: Hydration, Hypotention, IV Access ED Course Patient is a 58-year-old male here with complaints of rapid irregular heart rate after her ablation on December 22 at [facility]. Patient reportedly was initially hospitalized however is unable to be converted so a cardiac ablation was completed. Patient denies palpitations, chest pain, shortness breath, diaphoresis, recent illness. Patient has a history significant for COPD on Symbicort. Patient initially was on Eliquis previously for "helping bring down his heart rate". Patient did develop a pericardial effusion after the ablation which they determined may be secondary to patient having ablation on Eliquis so this medication was stopped. Patient had a repeat transthoracic echo to evaluate the status of the effusion which seemed to be improving. Patient is uncertain when his heart rate became rapid and irregular but he was sent here today for evaluation after the echo. Chest x-ray was stable or improved compared to prior. Initial troponin at time arrival was negative, there was no leukocytosis, hemoglobin and hematocrit were stable, electrolytes were found to be normal, kidney function was also found be stable. BNP was 703. Patient was given initial boluses of diltiazem 10 mg 3, started on diltiazem infusion. Patient's blood pressure improved significantly after 3 x 10 mg boluses and infusion. Repeat EKG initially seemed to be junctional however P waves became more apparent the patient was determined to be in normal sinus rhythm with stable blood pressure improving to approximately 100 systolic. I discussed the patient with Dr. Vazquez who was the computer hardware technician manager transmission at [facility] where the patient previously had his cardioversion. Dr. Vazquez recommended close follow-up outpatient with Dr. Kenyon or Dr. Marin () for outpatient reevaluation and to start the patient on Eliquis 5 mg twice daily, Toprol 25 mg daily until the patient is able to follow-up. Patient was updated regarding these findings and voiced understanding. Return precautions provided. Patient was hemodynamically stable at time of discharge. Decision to Disposition Date: Jan 17, 2019 Decision to Disposition Time: 11:42 Depart Departure Latest Vital Signs Vital Signs Date Time Temp Pulse Resp B/P (MAP) Pulse Ox O2 Delivery O2 Flow Rate FiO2 01/17/19 11:15 98/77 (84) 01/17/19 11:05 64 16 95 Nasal Cannula 01/17/19 10:13 2 01/17/19 09:30 98.3 Impression: Primary Impression: Atrial fibrillation Condition: Improved Disposition: HOME OR SELF-CARE New Scripts Apixaban (ELIQUIS) 5 Mg Tablet 5 MG PO BID for 30 Days, #60 TAB 3 Refills Prov: CARLITO CANELA DO 01/17/19 Metoprolol Succinate (TOPROL XL) 25 Mg Tab.er.24h 1 TAB PO QDAY for 30 Days, #30 TAB 3 Refills Prov: CARLITO CANELA DO 01/17/19 Patient Instructions: A-fib (Atrial Fibrillation) (ED) Additional Instructions: Please take all your medications as prescribed. I discussed your current treatment and care with Dr. Vazquez who was the computer hardware technician at [facility] ([place], [place]) manager transmission at time of your emergency department evaluation. Please follow-up with Dr. Kenyon or Dr. Marin to schedule a follow up Cardiology outpatient evaluation. Please restart taking Eliquis 5 mg twice daily and start Toprol 25 mg daily. Please follow-up with your computer hardware technician in the next 3-5 days in order to arrange a follow-up appointment. Please follow-up with your family doctor in the next 24-48 hours in order to have your blood pressure and heart rate checked. Please return immediately to the emergency department if you develop chest pain, shortness breath, pain in the jaw or arm. Please monitor your heart rate at home and return immediately if you develop a rapid heart rate, palpitations or fluttering sensation in your chest. CARLITO CANELA DO Jan 17, 2019 09:26
[2019-01-17] MEDS ORDERED: NS(*) 0.9% 1000 ML BAG 1,000 ML IV ONE (09:44)
[2019-01-17] MEDS ORDERED: DILTIAZEM 5 MG/ML 5ML IVPUSH IVP ONE ×3 (09:45→10:05)
--- NOTE | 2019-01-17 09:47 | EKG ---
FACILITY: [facility] PATIENT NAME: SULEMAN CORREA : [id number] MR: [id number] V: [id number] EXAM DATE: ORDERING PHYSICIAN: CARLITO CANELA TECHNOLOGIST: Test Reason : Blood Pressure : / mmHG Vent. Rate : 160 BPM Atrial Rate : 394 BPM P-R Int : 000 ms QRS Dur : 076 ms QT Int : 250 ms P-R-T Axes : 000 086 027 degrees QTc Int : 407 ms Atrial fibrillation with rapid ventricular response Abnormal ECG When compared with ECG of 20-DEC-2018 21:42, Atrial fibrillation has replaced Atrial flutter Confirmed by Sav Stanton ([id number] on 01/17/2019 1:40:11 PM Referred By: Confirmed By:Sav Torre
[2019-01-17 09:52] LABS: PLATELET COUNT, AUTOMATED 260 K/uL (150-450)
[2019-01-17 09:58] LABS: INR 1.07
[2019-01-17] MEDS ORDERED: DILTIAZEM HCL 125 MG/25 ML SDV 125 MG in NS(*) 0.9% 100 ML BAG 100 ML IV ONE (10:00)
[2019-01-17] MEDS ORDERED: DILTIAZEM 5 MG/ML 5ML IVPUSH ONE (10:03)
--- NOTE | 2019-01-17 10:18 | RADIOLOGY IMAGING REPORT ---
FACILITY: [facility] [place] PATIENT NAME: Simone Wade : 1960 MR: [id number] V: [id number] EXAM DATE: ORDERING PHYSICIAN: CARLITO CANELA TECHNOLOGIST: Location: [facility] - [place] Patient: Simone Wade : 1960 Visit/Account:[id number] Date of Sevice: 01/17/2019 CHEST SINGLE AP History: Chest Pain FINDINGS: Comparison studies: Comparison chest x-rays dated from 12/22/2018 back to 10/18/2012 Tubes and Lines: None. Lungs and pleura: There may be a component of chronic interstitial lung disease with mildly promine nt pulmonary interstitium again notes for back is 2012. However, in comparison to the recent December 10 examination there does appear to be some interval improvement suggesting there may have been an a cute pneumonitis or mild pulmonary edema superimposed upon chronic lung disease on the prior study. No focal consolidation. Mediastinum: normal. Cardiac silhouette: normal . Osseous structures: Unremarkable for age . IMPRESSION: Interval improvement from most recent examination suggesting resolving pulmonary edema or pneumonit is. As mentioned above, however, findings are suspicious for mild underlying chronic interstitial sarah ng disease. Correlate with symptoms or pulmonary function tests and if abnormal consider high-resolu tion chest CT for further evaluation. Report Dictated By: Joshua Clark MD at 01/17/2019 10:09 AM Report E-Signed By: Joshua Clark MD at 01/17/2019 10:14 AM WSN:GREGORY
[2019-01-17 11:15] VITALS: BP 98/77
[2019-01-17] MEDS ORDERED: METO25TA91 PO (11:33)
[2019-01-17] MEDS ORDERED: APIX5TAB PO (11:33)
--- NOTE | 2019-01-18 07:20 | EKG ---
[place] [facility] [place] NAME: SULEMAN CORREA : [id number] MR: [id number] V: [id number] EXAM DATE: ORDERING PHYSICIAN: MAXWELL GRANDA TECHNOLOGIST: Test Reason : Blood Pressure : / mmHG Vent. Rate : 063 BPM Atrial Rate : 057 BPM P-R Int : 000 ms QRS Dur : 114 ms QT Int : 390 ms P-R-T Axes : 000 088 048 degrees QTc Int : 399 ms Junctional rhythm Abnormal ECG When compared with ECG of 01.17.2019 @ 09.29 Junctional rhythm has replaced afib with RVR Confirmed by Sav Stanton ([id number] on 01/18/2019 7:26:37 AM Referred By: Confirmed By:Sav Torre
== END 2019-01-17 11:56 | disposition home or self-care (01) ==
LOC: ER 09:31
DX: I48.91 Unspecified atrial fibrillation (principal); F17.210 Nicotine dependence, cigarettes, uncomplicated
CPT/HCPCS: 71045; 83880; 84484; 85025; 85610; 85730; 93005; 96365; 96375; 99284; J3490; J7030; J7050; 82040; 82247; 82310; 82374; 82435; 82565; 82947; 84075; 84132; 84155; 84295; 84450; 84460; 84520

== ENCOUNTER → 2019-01-17 | Outpatient (CLI) | payer BC ==
[2018-12-21 08:21] VITALS: BMI 25.8
[~2019-01-17] MED LIST changes: +METO25TA91 PO
== END ==
LOC: US 01:07
PROVIDERS: ATTEND Internal Medicine
DX: I31.3 Pericardial effusion (noninflammatory) (principal)
CPT/HCPCS: 93308

== ENCOUNTER → 2019-01-23 | Outpatient (CLI) | payer BC ==
[2018-12-21 08:21] VITALS: BMI 25.8
[~2019-01-23] MED LIST changes: +GABA-549 PO; +METO25TA91 PO
== END ==
LOC: LAB 11:20
PROVIDERS: ATTEND Nurse Practitioner Family
DX: G25.81 Restless legs syndrome (principal); I48.92 Unspecified atrial flutter; Z82.49 Family history of ischemic heart disease and other diseases of the circulatory system
CPT/HCPCS: 36415; 82465; 82728; 83540; 83550; 83718; 84478

== ENCOUNTER 2019-02-07 21:12 | Emergency (ER) | payer BC ==
[2018-12-21 08:21] VITALS: Wt 80.7 kg
[~2019-02-07 21:12] MED LIST changes: +ROPI0.2530 PO
[2019-02-07] MEDS ORDERED: APIX5TAB PO (21:20)
[2019-02-07] MEDS ORDERED: NS(*) 0.9% 1000 ML BAG 1,000 ML IV ONE (21:26)
--- NOTE | 2019-02-07 21:27 | ER Report ---
History and Physical Time Seen By MD: 21:27 Hx. of Stated Complaint: pt reports sob and chest pressure since yesterday HPI/ROS CHIEF COMPLAINT: racing heart, chest pressure and short of breath. HISTORY OF PRESENT ILLNESS: This is a 59 year old male. Yesterday (Wednesday) started getting short of breath with minimal activity. .Noted heart racing intermittently. .Has atrial lfibrillation, on Metoprolol. Has had ablation in past. Feeling more tired, short of breath tonight. Mild cough for a few days as well. No fever or chills noted. No missed medication or medication changes. No nausea or vomiting. Has not been wheezing, has COPD as well. Allergies: Coded Allergies: tetracycline (Verified Allergy, Intermediate, ITCHING, 02/07/19) naproxen (Verified Adverse Reaction, Mild, RESTLESSNESS, 02/07/19) Home Meds Active Scripts Diltiazem Hcl (DILTIAZEM ER) 180 Mg Capsule.er, 180 MG PO BID, #60 CAP 0 Refills Prov:DWAYNE NIEVES MD 02/08/19 Ropinirole Hcl (ROPINIROLE HCL) 0.25 Mg Tablet, 1-2 TAB PO DIRECTED, #60 TAB 0 Refills Take 1 tab 1-3 hours before bed for restless leg syndrome. If no improvemnet in 1 week may increase to 2 tabs Prov:CATHERINE CRESPO APRN-C 02/07/19 Gabapentin (GABAPENTIN) 300 Mg Capsule, 1 CAP PO TID, #90 CAPSULE 0 Refills Prov:CATHERINE CRESPO APRN-C 02/02/19 Albuterol Sulfate (PROVENTIL HFA) 6.7 Gm Inh, 2 PUFF INH QID PRN for SHORTNESS OF BREATH, #1 INH 5 Refills Prov:CATHERINE CRESPO APRN-C 01/23/19 Budesonide/Formoterol Fumarate (SYMBICORT 160-4.5 MCG INHALER) 10.2 Gm Inh, 1 PUFF INH BID, #60 INH 5 Refills Prov:CATHERINE CRESPO APRN-C 01/23/19 Metoprolol Succinate (TOPROL XL) 25 Mg Tab.er.24h, 1 TAB PO QDAY for 30 Days, #30 TAB 3 Refills Prov:CARLITO CANELA DO 01/17/19 Reported Medications Apixaban (ELIQUIS) 5 Mg Tablet, 5 MG PO DAILY 02/07/19 Tiotropium [place] (SPIRIVA) 18 Mcg/Cap Inh, 1 CAP INH DAILY, INH 01/23/19 Discontinued Scripts Apixaban (ELIQUIS) 5 Mg Tablet, 5 MG PO BID for 30 Days, #60 TAB 3 Refills Prov:CARLITO CANELA DO 01/17/19 Reviewed Nurses Notes: Yes Hx Smoking: Yes (5-10day) Smoking Status: Current: Every Day Smoker, Light Tobacco Smoker Exposure to Second Hand Smoke?: Yes Hx Substance Use Disorder: No Hx Alcohol Use: No Constitutional Vital Sign - Last 24 Hours 02/07/19 02/07/19 02/07/19 02/07/19 21:15 21:16 21:17 21:30 Temp 97.9 Pulse 152 117 Resp 18 24 B/P (MAP) 94/50 94/79 (84) 94/50 (65) 83/71 (75) Pulse Ox 93 91 O2 Delivery Room Air 02/07/19 02/07/19 02/07/19 02/07/19 21:45 21:59 22:00 22:05 Pulse 134 77 131 Resp 19 17 19 B/P (MAP) 82/72 (75) Pulse Ox 87 85 85 02/07/19 02/07/19 02/07/19 02/07/19 22:25 22:30 22:40 22:55 Pulse 112 229 97 Resp 16 12 25 B/P (MAP) 87/77 (80) Pulse Ox 88 87 92 02/07/19 02/07/19 02/07/19 02/07/19 23:00 23:08 23:08 23:10 Pulse 135 ??? Resp 18 21 B/P (MAP) 97/82 (87) Pulse Ox 94 83 O2 Delivery Room Air 02/07/19 02/07/19 02/07/19 02/07/19 23:12 23:25 23:30 23:35 Pulse 117 117 170 Resp 18 23 13 B/P (MAP) 88/78 (81) Pulse Ox 88 02/07/19 02/07/19 02/08/19 02/08/19 23:50 23:55 00:10 00:25 Pulse 142 118 156 105 Resp 20 30 10 15 Pulse Ox 88 87 02/08/19 02/08/19 00:30 00:40 Pulse ??? Resp 10 B/P (MAP) 132/110 (117) Pulse Ox 89 Intake and Output 02/07/19 02/07/19 02/08/19 15:00 23:00 07:00 Intake Total 1000 ml Balance 1000 ml Physical Exam General Appearance: The patient is alert. No acute distress. Eyes: Pupils are equal, round. No pallor, injection or icterus. ENT: Mucous membranes are moist. Respiratory: Lungs are clear to auscultation. Cardiovascular: Irregularly irregular rhythm. No murmurs, gallops or rubs. Normal peripheral perfusion. No edema. Neurological: Alert and oriented x3. No focal neurologic deficits Skin: Warm and dry. DIFFERENTIAL DIAGNOSIS: After history and physical exam, differential diagnosis was considered for atrial fibrillation with rapid ventricular rate. Will need to look for other potential causes of this, or just paroxysmal. Medical Decision Making Data Points Result Diagram: 02/07/19212102/07/192121 Laboratory Hematology Test 02/07/19 21:22 Red Blood Count 4.23 M/uL (4.00-5.60) Mean Corpuscular Volume 102.9 fL (80.0-96.0) Mean Corpuscular Hemoglobin 33.9 pg (26.0-33.0) Mean Corpuscular Hemoglobin Concent 33.0 g/dL (32.0-36.0) Red Cell Distribution Width 14.2 % (11.5-14.5) Mean Platelet Volume 7.4 fL (7.2-11.1) Neutrophils (%) (Auto) 65.0 % (39.4-72.5) Lymphocytes (%) (Auto) 28.3 % (17.6-49.6) Monocytes (%) (Auto) 5.9 % (4.1-12.4) Eosinophils (%) (Auto) 0.5 % (0.4-6.7) Basophils (%) (Auto) 0.3 % (0.3-1.4) Nucleated RBC Relative Count (auto) 0.0 /100WBC Neutrophils # (Auto) 8.3 K/uL (2.0-7.4) Lymphocytes # (Auto) 3.6 K/uL (1.3-3.6) Monocytes # (Auto) 0.8 K/uL (0.3-1.0) Eosinophils # (Auto) 0.1 K/uL (0.0-0.5) Basophils # (Auto) 0.0 K/uL (0.0-0.1) Nucleated RBC Absolute Count (auto) 0.00 K/uL Peripheral Blood Smear Y/N Sodium Level 138 mmol/L (137-145) Potassium Level 4.0 mmol/L (3.5-5.0) Chloride Level 105 mmol/L (98-107) Carbon Dioxide Level 26 mmol/L (22-30) Blood Urea Nitrogen 18 mg/dl (9-21) Creatinine 1.30 mg/dl (0.66-1.25) Glomerular Filtration Rate Calc 56.7 Random Glucose 120 mg/dl (75-110) Calcium Level 9.1 mg/dl (8.4-10.2) Total Bilirubin 1.2 mg/dl (0.2-1.3) Aspartate Amino Transf (AST/SGOT) 43 U/L (0-35) Alanine Aminotransferase (ALT/SGPT) 52 U/L (0-56) Alkaline Phosphatase 54 U/L (0-126) Troponin I < 0.012 ng/ml Total Protein 6.8 g/dl (6.3-8.2) Albumin 4.0 g/dl (3.5-5.0) Chemistry Test 02/07/19 21:22 White Blood Count 12.8 k/uL (4.5-11.0) Red Blood Count 4.23 M/uL (4.00-5.60) Hemoglobin 14.3 g/dL (14.0-18.0) Hematocrit 43.5 % (42.0-52.0) Mean Corpuscular Volume 102.9 fL (80.0-96.0) Mean Corpuscular Hemoglobin 33.9 pg (26.0-33.0) Mean Corpuscular Hemoglobin Concent 33.0 g/dL (32.0-36.0) Red Cell Distribution Width 14.2 % (11.5-14.5) Platelet Count 242 K/uL (150-450) Mean Platelet Volume 7.4 fL (7.2-11.1) Neutrophils (%) (Auto) 65.0 % (39.4-72.5) Lymphocytes (%) (Auto) 28.3 % (17.6-49.6) Monocytes (%) (Auto) 5.9 % (4.1-12.4) Eosinophils (%) (Auto) 0.5 % (0.4-6.7) Basophils (%) (Auto) 0.3 % (0.3-1.4) Nucleated RBC Relative Count (auto) 0.0 /100WBC Neutrophils # (Auto) 8.3 K/uL (2.0-7.4) Lymphocytes # (Auto) 3.6 K/uL (1.3-3.6) Monocytes # (Auto) 0.8 K/uL (0.3-1.0) Eosinophils # (Auto) 0.1 K/uL (0.0-0.5) Basophils # (Auto) 0.0 K/uL (0.0-0.1) Nucleated RBC Absolute Count (auto) 0.00 K/uL Peripheral Blood Smear Y/N Glomerular Filtration Rate Calc 56.7 Calcium Level 9.1 mg/dl (8.4-10.2) Total Bilirubin 1.2 mg/dl (0.2-1.3) Aspartate Amino Transf (AST/SGOT) 43 U/L (0-35) Alanine Aminotransferase (ALT/SGPT) 52 U/L (0-56) Alkaline Phosphatase 54 U/L (0-126) Troponin I < 0.012 ng/ml Total Protein 6.8 g/dl (6.3-8.2) Albumin 4.0 g/dl (3.5-5.0) EKG/Imaging EKG Interpretation 12 lead EKG: Rhythm: atrial fibrillation, rate 148 [place]: normal QRS: normal ST segments: normal Imaging TWO VIEW CHEST 02/07/2019 9:46 PM. INDICATION: Shortness of breath since early December. COMPARISON: Multiple prior examinations, most recent 01/17/2019. FINDINGS: Hyperexpansion and interstitial prominence are similar to prior. No new focal consolidation, pleural effusion or pneumothorax. Heart size is unchanged. IMPRESSION: Probable chronic hyperexpansion and interstitial prominence similar to multiple prior examinations. No definite acute abnormality. Report Dictated By: Mani Tadeo MD at 02/07/2019 10:26 PM ED Course/Re-evaluation Clinical Indication for ER IV: IV Access ED Course Patient had 20mg IV Diltiazem, began to slow from the 140-170 range to the 100- 140 range. At times into the 90s. chest x-ray negative for acute problem. Negative troponin. Trial of Solu-Medrol and Duo-neb, but started racing more. 2 further doses of Diltiazem 10mg each IVP. Heart rate now averaging in the 110- 120 range. Still with some shortness of breath with exertion, but oxygen saturations are normal. Started on Diltiazem 180mg extended release to be taken twice a day. Off work Wednesday and contact with cardiology recommended for fu rther treatment and follow-up options. Discussed with the hospitalist as well. Decision to Disposition Date: February 08, 2019 Decision to Disposition Time: 00:38 Depart Departure Latest Vital Signs Vital Signs Date Time Temp Pulse Resp B/P (MAP) Pulse Ox O2 Delivery O2 Flow Rate FiO2 02/08/19 00:40 ??? 10 89 02/08/19 00:30 132/110 (117) 02/07/19 23:08 Room Air 02/07/19 21:15 97.9 Impression: Primary Impression: Atrial fibrillation Condition: Improved Disposition: HOME OR SELF-CARE Referrals: CATHERINE CRESPO APRN NON CDL DRIVER-C (PCP) New Scripts Diltiazem Hcl (DILTIAZEM ER) 180 Mg Capsule.er 180 MG PO BID, #60 CAP 0 Refills Prov: DWAYNE NIEVES MD 02/08/19 Patient Instructions: A-fib (Atrial Fibrillation) (ED) Additional Instructions: Keep taking your Metoprolol. We are going to add Diltiazem 180mg controlled release twice a day. 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 Problem Qualifiers Primary Impression: Atrial fibrillation Atrial fibrillation type: paroxysmal Qualified Codes: I48.0 - Paroxysmal atrial fibrillation DWAYNE NIEVES MD Feb 07, 2019 21:27
--- NOTE | 2019-02-07 21:35 | EKG ---
FACILITY: [facility] - [place] PATIENT NAME: SULEMAN CORREA : [id number] MR: [id number] V: [id number] EXAM DATE: ORDERING PHYSICIAN: DWAYNE NIEVES TECHNOLOGIST: KARTHIKEYAN Test Reason : SOB Blood Pressure : / mmHG Vent. Rate : 148 BPM Atrial Rate : 441 BPM P-R Int : 000 ms QRS Dur : 080 ms QT Int : 294 ms P-R-T Axes : 000 089 059 degrees QTc Int : 461 ms Atrial fibrillation with rapid ventricular response Abnormal ECG When compared with ECG of 17-JAN-2019 10:55, Atrial fibrillation has replaced Junctional rhythm Vent. rate has increased BY 85 BPM QRS duration has decreased Confirmed by BUBBA UMANA ([id number]) on 02/08/2019 6:35:52 AM Referred By: Confirmed By:BUBBA UMANA
[2019-02-07 21:45] LABS: PLATELET COUNT, AUTOMATED 242 K/uL (150-450)
[2019-02-07] MEDS ORDERED: DILTIAZEM 5 MG/ML 5ML IVPUSH IVP ONE ×2 (21:50→23:05)
--- NOTE | 2019-02-07 22:34 | RADIOLOGY IMAGING REPORT ---
FACILITY: [facility] PATIENT NAME: Simone Wade : 1960 MR: [id number] V: [id number] EXAM DATE: ORDERING PHYSICIAN: DWAYNE NIEVES TECHNOLOGIST: Location: [facility] - [place] Patient: Simone Wade : 1960 Visit/Account:[id number] Date of Sevice: 02/07/2019 TWO VIEW CHEST 02/07/2019 9:46 PM. INDICATION: Shortness of breath since early December. COMPARISON: Multiple prior examinations, most recent 01/17/2019. FINDINGS: Hyperexpansion and interstitial prominence are similar to prior. No new focal consolidatio n, pleural effusion or pneumothorax. Heart size is unchanged. IMPRESSION: Probable chronic hyperexpansion and interstitial prominence similar to multiple prior exa minations. No definite acute abnormality. Report Dictated By: Mani Tadeo MD at 02/07/2019 10:26 PM Report E-Signed By: Mani Tadeo MD at 02/07/2019 10:30 PM WSN:[id number]
[2019-02-07] MEDS ORDERED: methylPREDNIS SUCC 125 MG/2ML IVP ONE (23:05)
[2019-02-07] MEDS ORDERED: ALBUTEROL/IPRATROPIUM 3 ML NEB NEB ONE (23:05)
[2019-02-08] MEDS ORDERED: DILTIAZEM 5 MG/ML 5ML IVPUSH IVP ONE
[2019-02-08 00:30] VITALS: BP 132/110
[2019-02-08] MEDS ORDERED: DILT180C2 PO (00:39)
[2019-02-08] MEDS ORDERED: DILTIAZEM CD 180 MG CAPCR PO SCH (09:00)
== END 2019-02-08 00:51 | disposition home or self-care (01) ==
LOC: ER 21:29
DX: I48.0 Paroxysmal atrial fibrillation (principal)
CPT/HCPCS: 71046; 84484; 85025; 93005; 94640; 96361; 96374; 96375; 96376; 99284; J2930; J3490; J7030; J7620; 82040; 82247; 82310; 82374; 82435; 82565; 82947; 84075; 84132; 84155; 84295; 84450; 84460; 84520

== ENCOUNTER 2019-02-17 12:56 | Emergency (ER) | payer BC ==
[2018-12-21 08:21] VITALS: Wt 81.6 kg
[~2019-02-17 12:56] MED LIST changes: +DILT180C2 PO
--- NOTE | 2019-02-17 13:11 | ER Report ---
History and Physical Time Seen By MD: 13:10 Hx. 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 CURRENTLY IN A-FIB WITH RVR. NO COMPLAINTS AT THIS TIME HPI/ROS CHIEF COMPLAINT: Atrial fibrillation with rapid ventricular response HISTORY OF PRESENT ILLNESS: 59-year-old male patient presents to emergency room with complaint of atrial fibrillation with rapid ventricular response. Patient states that he gone to see his experimental rocketsled mechanic. Will he was at his experimental rocketsled mechanic his heart rate jumped. Patient states that he was unaware of the increase in his heart rate. Sewing Department Supervisor evaluated and saw that his heart rate was up and him that he was a defibrillation and referred him to the emergency room for cardioversion. Physician states that he has recent ablation for atrial flutter, he is currently taking eloquence. Also notes that he has a cough and did want him to be evaluated. Patient had an episode of syncope and he was unsure if it is related to cough with vasovagal response or a positive status transitioning from A. fib back to normal sinus rhythm. Patient denies any fevers, chills, nausea, vomiting or diarrhea. Patient states he has no chest pain. REVIEW OF SYSTEMS: Respiratory: No cough, no dyspnea. Cardiovascular: No chest pain, no palpitations. Gastrointestinal: No vomiting, no abdominal pain. Musculoskeletal: No back pain. Allergies: Coded Allergies: tetracycline (Verified Allergy, Intermediate, ITCHING, 02/07/19) naproxen (Verified Adverse Reaction, Mild, RESTLESSNESS, 02/07/19) Home Meds Active Scripts Amoxicillin/Pot Clav 875-125 Mg Tab (AUGMENTIN 875-125 TABLET) 1 Each Tablet, 1 TAB PO Q12H, #14 TAB Prov:MAURICE BERRIOS REGISTERED RESPIRATORY THERAPIST 02/17/19 Diltiazem Hcl (DILTIAZEM ER) 180 Mg Capsule.er, 180 MG PO BID, #60 CAP 0 Refills Prov:DWAYNE NIEVES MD 02/08/19 Ropinirole Hcl (ROPINIROLE HCL) 0.25 Mg Tablet, 1-2 TAB PO DIRECTED, #60 TAB 0 Refills Take 1 tab 1-3 hours before bed for restless leg syndrome. If no improvemnet in 1 week may increase to 2 tabs Prov:CATHERINE CRESPO APRN REGISTERED RESPIRATORY THERAPIST-C 02/07/19 Gabapentin (GABAPENTIN) 300 Mg Capsule, 1 CAP PO TID, #90 CAPSULE 0 Refills Prov:CATHERINE CRESPO APRN-C 02/02/19 Albuterol Sulfate (PROVENTIL HFA) 6.7 Gm Inh, 2 PUFF INH QID PRN for SHORTNESS OF BREATH, #1 INH 5 Refills Prov:CATHERINE CRESPO APRNP-C 01/23/19 Budesonide/Formoterol Fumarate (SYMBICORT 160-4.5 MCG INHALER) 10.2 Gm Inh, 1 PUFF INH BID, #60 INH 5 Refills Prov:CATHERINE CRESPO APRNP-C 01/23/19 Metoprolol Succinate (TOPROL XL) 25 Mg Tab.er.24h, 1 TAB PO QDAY for 30 Days, #30 TAB 3 Refills Prov:CARLITO HUGGINS DO 01/17/19 Reported Medications Apixaban (ELIQUIS) 5 Mg Tablet, 5 MG PO DAILY 02/07/19 Tiotropium [place] (SPIRIVA) 18 Mcg/Cap Inh, 1 CAP INH DAILY, INH 01/23/19 Past Medical/Surgical History Patient has a past medical history of migraines, atrial fibrillation, atrial flutter, asthma, pneumonia, COPD, testicular cancer, bilateral: Fracture, depression. Patient has a surgical history of tonsillectomy, shoulder surgery, knee surgery, orchiectomy, plate placed into his neck, appendectomy. Patient has a family medical history of cancer, diabetes. Reviewed Nurses Notes: Yes Hx Smoking: Yes (5-10day) Smoking Status: Current: Every Day Smoker, Light Tobacco Smoker Exposure to Second Hand Smoke?: Yes Hx Substance Use Disorder: No Hx Alcohol Use: No Constitutional Vital Sign - Last 24 Hours 02/17/19 02/17/19 02/17/19 02/17/19 12:56 13:01 13:02 13:02 Temp 98.2 Pulse 132 132 146 138 Resp 18 B/P (MAP) 94/84 (87) 113/64 (80) 113/64 Pulse Ox 91 O2 Delivery Room Air 02/17/19 02/17/19 02/17/19 02/17/19 13:10 13:16 13:20 13:25 Pulse 134 134 146 134 Resp 35 28 23 B/P (MAP) 97/71 (80) 88/67 (74) Pulse Ox 88 90 93 02/17/19 02/17/19 02/17/19 02/17/19 13:30 13:35 13:40 13:44 Pulse 135 79 197 Resp 28 21 21 B/P (MAP) 100/68 (79) 113/85 (94) 111/97 (102) 107/81 (90) Pulse Ox 93 98 74 02/17/19 02/17/19 02/17/19 02/17/19 13:45 13:50 13:55 14:00 Pulse 80 78 78 Resp 78 22 23 B/P (MAP) 119/86 (97) 115/89 (98) Pulse Ox 100 100 98 O2 Flow Rate 2.0 02/17/19 02/17/19 02/17/19 02/17/19 14:00 14:05 14:10 14:15 Pulse 81 Resp 21 B/P (MAP) 111/89 (96) 111/86 (94) ???/??? (1665) 107/83 (91) Pulse Ox 96 02/17/19 02/17/19 02/17/19 02/17/19 14:20 14:25 14:30 14:35 Pulse 81 Resp 13 B/P (MAP) 104/79 (87) 111/81 (91) 108/77 (87) 108/79 (89) Pulse Ox 90 02/17/19 02/17/19 02/17/19 14:40 14:45 15:00 Pulse 86 85 Resp 16 16 B/P (MAP) 107/78 (88) 108/75 (86) Pulse Ox 85 91 Physical Exam General Appearance: The patient is alert, has no immediate need for airway protection and no current signs of toxicity. Respiratory: Chest is non tender, lungs are clear to auscultation. Cardiac: irregular rate and rhythm, patient is tachycardic. Gastrointestinal: Abdomen is soft and non tender, no masses, bowel sounds normal. Musculoskeletal: Neck: Neck is supple and non tender. Extremities have full range of motion and are non tender. Skin: No rashes or lesions. DIFFERENTIAL DIAGNOSIS: After history and physical exam differential diagnosis was considered for atrial fibrillation with rapid ventricular response, pneumonia. Medical Decision Making Data Points Result Diagram: 02/17/19 1301 02/17/19 1301 Laboratory Hematology Test 02/17/19 13:01 Red Blood Count 4.13 M/uL (4.00-5.60) Mean Corpuscular Volume 102.1 fL (80.0-96.0) Mean Corpuscular Hemoglobin 33.7 pg (26.0-33.0) Mean Corpuscular Hemoglobin Concent 33.0 g/dL (32.0-36.0) Red Cell Distribution Width 14.9 % (11.5-14.5) Mean Platelet Volume 6.7 fL (7.2-11.1) Neutrophils (%) (Auto) 73.8 % (39.4-72.5) Lymphocytes (%) (Auto) 16.9 % (17.6-49.6) Monocytes (%) (Auto) 8.4 % (4.1-12.4) Eosinophils (%) (Auto) 0.4 % (0.4-6.7) Basophils (%) (Auto) 0.5 % (0.3-1.4) Nucleated RBC Relative Count (auto) 0.0 /100WBC Neutrophils # (Auto) 9.1 K/uL (2.0-7.4) Lymphocytes # (Auto) 2.1 K/uL (1.3-3.6) Monocytes # (Auto) 1.0 K/uL (0.3-1.0) Eosinophils # (Auto) 0.0 K/uL (0.0-0.5) Basophils # (Auto) 0.1 K/uL (0.0-0.1) Nucleated RBC Absolute Count (auto) 0.00 K/uL Sodium Level 140 mmol/L (137-145) Potassium Level 4.4 mmol/L (3.5-5.0) Chloride Level 104 mmol/L (98-107) Carbon Dioxide Level 26 mmol/L (22-30) Blood Urea Nitrogen 16 mg/dl (9-21) Creatinine 1.30 mg/dl (0.66-1.25) Glomerular Filtration Rate Calc 56.7 Random Glucose 102 mg/dl (75-110) Calcium Level 8.8 mg/dl (8.4-10.2) Total Bilirubin 1.3 mg/dl (0.2-1.3) Aspartate Amino Transf (AST/SGOT) 40 U/L (0-35) Alanine Aminotransferase (ALT/SGPT) 41 U/L (0-56) Alkaline Phosphatase 77 U/L (0-126) Total Protein 7.5 g/dl (6.3-8.2) Albumin 4.4 g/dl (3.5-5.0) Chemistry Test 02/17/19 13:01 White Blood Count 12.3 k/uL (4.5-11.0) Red Blood Count 4.13 M/uL (4.00-5.60) Hemoglobin 13.9 g/dL (14.0-18.0) Hematocrit 42.2 % (42.0-52.0) Mean Corpuscular Volume 102.1 fL (80.0-96.0) Mean Corpuscular Hemoglobin 33.7 pg (26.0-33.0) Mean Corpuscular Hemoglobin Concent 33.0 g/dL (32.0-36.0) Red Cell Distribution Width 14.9 % (11.5-14.5) Platelet Count 259 K/uL (150-450) Mean Platelet Volume 6.7 fL (7.2-11.1) Neutrophils (%) (Auto) 73.8 % (39.4-72.5) Lymphocytes (%) (Auto) 16.9 % (17.6-49.6) Monocytes (%) (Auto) 8.4 % (4.1-12.4) Eosinophils (%) (Auto) 0.4 % (0.4-6.7) Basophils (%) (Auto) 0.5 % (0.3-1.4) Nucleated RBC Relative Count (auto) 0.0 /100WBC Neutrophils # (Auto) 9.1 K/uL (2.0-7.4) Lymphocytes # (Auto) 2.1 K/uL (1.3-3.6) Monocytes # (Auto) 1.0 K/uL (0.3-1.0) Eosinophils # (Auto) 0.0 K/uL (0.0-0.5) Basophils # (Auto) 0.1 K/uL (0.0-0.1) Nucleated RBC Absolute Count (auto) 0.00 K/uL Glomerular Filtration Rate Calc 56.7 Calcium Level 8.8 mg/dl (8.4-10.2) Total Bilirubin 1.3 mg/dl (0.2-1.3) Aspartate Amino Transf (AST/SGOT) 40 U/L (0-35) Alanine Aminotransferase (ALT/SGPT) 41 U/L (0-56) Alkaline Phosphatase 77 U/L (0-126) Total Protein 7.5 g/dl (6.3-8.2) Albumin 4.4 g/dl (3.5-5.0) EKG/Imaging EKG Interpretation 12 lead EKG done at 1301: Rhythm: Atrial fibrillation with rapid ventricular response, ventricular rate of 120 bpm [place]: normal QRS: normal ST segments: normal 12 lead EKG done at 1337: Rhythm: Atrial fibrillation with rapid response, ventricular rate of 156 bpm [place]: normal QRS: ] Voltage ST segments: normal 12 lead EKG done at 1343: Rhythm: normal sinus rhythm with a ventricular rate of 79 bpm [place]: normal QRS: Low voltage ST segments: normal Imaging 2 VIEWS CHEST INDICATION: Cough COMPARISON: 2 views of the chest on 02/07/2019. FINDINGS: Heart size upper limits of normal no overt failure. Mild bronchitic changes with no focal infiltrate or consolidation. There is no significant change from the prior exam. Mild coarsened interstitial changes throughout the lung [place] also unchanged from prior study. There is no pneumothorax or pleural effusion. IMPRESSION: 1. No acute process or acute change from prior study. Report Dictated By: Mynor Davis MD at 02/17/2019 2:23 PM Report E-Signed By: Mynor Davis MD at 02/17/2019 2:25 PM ED Course/Re-evaluation ED Course Patient was admitted to exam room, history and physical were obtained. Differential diagnoses were considered. On examination lungs are clear, heart is irregular, abdomen is soft and nontender. An IV was started, a CBC, CMP was done. Chest x-ray was performed. Chest x-ray showed no acute findings. Infected showed no changes from his previous x-ray. Conscious sedation was done and cardioversion was done as described below. Patient tolerated procedure well. I discussed the findings with patient. Patient does have a horrible cough here in the emergency room. We will go ahead and treat him for pneumonia, as he does have an elevated white count, although no fever. I discussed plan with patient who verbalized understanding and agreement. I did discuss with him that his experimental rocketsled mechanic did not want him driving due to a syncopal episode. Patient became upset stating that he was having loose his job and his insurance. It is my continued recommendation that he not drive until he is cleared by his experimental rocketsled mechanic. Patient verbalized understanding with plan. Procedure: Procedural sedation. A pre-sedation evaluation was completed on the patient at 1330. Patient is an appropriate candidate for procedural sedation. The risks of the sedation were discussed with the patient. A time out was completed. The patient was reevaluated immediately prior to initiation of sedation. The patient was sedated with 8 mg of etomidate, then that was augmented with 4 mg of etomidate 2. The patient was monitored with continuous pulse oximetry and residential monitor. There were no complications and no significant hypoxemia. I remained at the bedside for the sedation. The total time I spent in the procedural sedation was 20 minutes. Post sedation evaluation: Patient was alert and cooperative, hemodynamically stable with appropriate respiratory status, temperature and pain control without ongoing nausea and vomiting. Sedation was performed by Dr. Huggins. Procedure: Elective electrical cardioversion. The patient was electively electrically cardioverted for atrial fibrillation with rapid ventricular response. The patient was on a continuous conveyor monitor, with airway equipment at the bedside. The patient was on continuous pulse oximetry. The cardioversion was attempted with 150 joules biphasic current. The cardioversion was successful initially, there was repeated at 200 J biphasic current. The cardioversion was successful initially again and repeated a third time at 250 J biphasic current. This time the cardioversion was successful. The patient tolerated the procedure well with no complications. The procedure was performed by myself with Dr. Huggins present. Decision to Disposition Date: February 17, 2019 Decision to Disposition Time: 14:36 Depart Departure Latest Vital Signs Vital Signs Date Time Temp Pulse Resp B/P (MAP) Pulse Ox O2 Delivery O2 Flow Rate FiO2 02/17/19 15:00 85 16 91 02/17/19 14:45 108/75 (86) 02/17/19 14:00 2.0 02/17/19 13:02 98.2 Room Air Impression: Primary Impression: Atrial fibrillation Additional Impressions: Cough Leukocytosis Condition: Improved Disposition: HOME OR SELF-CARE Referrals: CATHERINE CRESPO APRN REGISTERED RESPIRATORY THERAPIST-C (PCP) New Scripts Amoxicillin/Pot Clav 875-125 Mg Tab (AUGMENTIN 875-125 TABLET) 1 Each Tablet 1 TAB PO Q12H, #14 TAB Prov: MAURICE BERRIOS 02/17/19 Patient Instructions: A-fib (Atrial Fibrillation) (ED) Additional Instructions: Increase fluid intake. Get plenty of rest. Follow up with your experimental rocketsled mechanic as scheduled. Return to the ER if condition worsens. As discussed it is my recommendation that you don't drive until your heart monitor has been done and you are cleared by cardiology Problem Qualifiers Primary Impression: Atrial fibrillation Atrial fibrillation type: persistent Qualified Codes: I48.1 - Persistent atrial fibrillation Additional Impressions: Leukocytosis Leukocytosis type: unspecified Qualified Codes: D72.829 - Elevated white blood cell count, unspecified MAURICE BERRIOS February 17, 2019 13:10
[2019-02-17] MEDS ORDERED: NS(*) 0.9% 1000 ML BAG 1,000 ML IV ONE (13:15)
[2019-02-17] MEDS ORDERED: ETOMIDATE 20 MG/10 ML VIAL IVP ONE (13:15)
[2019-02-17 13:19] LABS: PLATELET COUNT, AUTOMATED 259 K/uL (150-450)
--- NOTE | 2019-02-17 14:29 | RADIOLOGY IMAGING REPORT ---
FACILITY: [facility] - [place] PATIENT NAME: Simone Wade : 1960 MR: [id number] V: [id number] EXAM DATE: ORDERING PHYSICIAN: MAURICE BERRIOS TECHNOLOGIST: Location: [facility] Patient: Simone Wade : 1960 Visit/Account:[id number] Date of Sevice: 02/17/2019 2 VIEWS CHEST INDICATION: Cough COMPARISON: 2 views of the chest on 02/07/2019. FINDINGS: Heart size upper limits of normal no overt failure. Mild bronchitic changes with no focal infiltrate or consolidation. There is no significant change fr om the prior exam. Mild coarsened interstitial changes throughout the lung hinojosa also unchanged fro m prior study. There is no pneumothorax or pleural effusion. IMPRESSION: 1. No acute process or acute change from prior study. Report Dictated By: Mynor Davis MD at 02/17/2019 2:23 PM Report E-Signed By: Mynor Davis MD at 02/17/2019 2:25 PM WSN:[id number]
[2019-02-17] MEDS ORDERED: AMOX-559 PO (14:40)
[2019-02-17 14:45] VITALS: BP 108/75
--- NOTE | 2019-02-17 16:43 | EKG ---
FACILITY: PATIENT NAME: SULEMAN CORREA : [id number] MR: [id number] V: [id number] EXAM DATE: ORDERING PHYSICIAN: MAURICE BERRIOS TECHNOLOGIST: Test Reason : Blood Pressure : / mmHG Vent. Rate : 156 BPM Atrial Rate : 352 BPM P-R Int : 000 ms QRS Dur : 070 ms QT Int : 292 ms P-R-T Axes : 000 089 059 degrees QTc Int : 470 ms Atrial flutter with variable AV block Low voltage QRS Abnormal ECG When compared with ECG of 17-FEB-2019 13:01, No significant change was found Confirmed by MOE PEREIRA ([id number]) on 02/17/2019 5:19:47 PM Referred By: Confirmed By:MOE PEREIRA
--- NOTE | 2019-02-17 16:43 | EKG ---
FACILITY: [facility] [place] PATIENT NAME: SULEMNA CORREA : [id number] MR: [id number] V: [id number] EXAM DATE: ORDERING PHYSICIAN: MAURICE BERRIOS TECHNOLOGIST: Test Reason : Blood Pressure : / mmHG Vent. Rate : 079 BPM Atrial Rate : 079 BPM P-R Int : 156 ms QRS Dur : 084 ms QT Int : 356 ms P-R-T Axes : 066 078 058 degrees QTc Int : 408 ms Sinus rhythm with fusion complexes Low voltage QRS Borderline ECG When compared with ECG of 17-FEB-2019 13:37, Sinus rhythm has replaced Atrial flutter Vent. rate has decreased BY 77 BPM Confirmed by MOE PEREIRA ([id number]) on 02/17/2019 5:20:31 PM Referred By: Confirmed By:MOE PEREIRA
--- NOTE | 2019-02-17 16:43 | EKG ---
FACILITY: [facility] PATIENT NAME: SULEMAN CORREA : [id number] MR: [id number] V: [id number] EXAM DATE: ORDERING PHYSICIAN: MAURICE BERRIOS TECHNOLOGIST: Test Reason : Blood Pressure : / mmHG Vent. Rate : 120 BPM Atrial Rate : 360 BPM P-R Int : 000 ms QRS Dur : 080 ms QT Int : 296 ms P-R-T Axes : 000 093 043 degrees QTc Int : 418 ms Atrial flutter with variable AV block Abnormal ECG When compared with ECG of 07-FEB-2019 21:23, Atrial flutter has replaced Atrial fibrillation Confirmed by MOE PEREIRA ([id number]) on 02/17/2019 5:19:24 PM Referred By: Confirmed By:MOE PEREIRA
== END 2019-02-17 14:55 | disposition home or self-care (01) ==
LOC: ER 13:18
DX: I48.1 Persistent atrial fibrillation (principal); D72.829 Elevated white blood cell count, unspecified; R05 Cough
CPT/HCPCS: 71046; 85025; 92960; 93005; 96361; 96374; 99156; 99285; J3490; J7030; 82040; 82247; 82310; 82374; 82435; 82565; 82947; 84075; 84132; 84155; 84295; 84450; 84460; 84520

== ENCOUNTER 2019-02-21 22:08 | Emergency (ER) | payer BC ==
[2018-12-21 08:21] VITALS: BMI 25.8
[~2019-02-21 22:08] MED LIST changes: +AMOX-559 PO
--- NOTE | 2019-02-21 22:11 | ER Report ---
History and Physical Time Seen By MD: 22:10 HPI/ROS CHIEF COMPLAINT: Atrial fibrillation with rapid ventricular response HISTORY OF PRESENT ILLNESS: 89-year-old male was seen in the ER on 02/17/19 for conscious sedation and cardioversion of his atrial fibrillation. Patient status post ablation back in 12/23/18. Patient was seen by cardiology at 02/17/19 and was advised he needs a pacemaker for sick sinus syndrome. He is due to follow- up in 2 weeks with tool room attendant to determine further treatment. He will likely need a pacemaker placed. He continues on diltiazem 180 mg extended release daily. He's also metoprolol 25 mg per day. His heart rate fluctuates from the 40s to the 170s. Tonight he is in A. fib with rapid ventricular response at a rate in the 160s. He notes that he short of breath and tired and wants to go to sleep. Patient also has COPD. Patient quit smoking back in December. His room pulse ox is usually about 89%. Patient states he would not undergo cardioversion. Again. He had significant chest wall pain after being shocked last time he was not completely out. Under conscious sedation, so he recalls some of the events. REVIEW OF SYSTEMS: Respiratory: As above Cardiovascular: As above Gastrointestinal: No vomiting, no abdominal pain. Musculoskeletal: No back pain. Allergies: Coded Allergies: tetracycline (Verified Allergy, Intermediate, ITCHING, 02/22/19) naproxen (Verified Adverse Reaction, Mild, RESTLESSNESS, 02/22/19) Home Meds Active Scripts Amoxicillin/Pot Clav 875-125 Mg Tab (AUGMENTIN 875-125 TABLET) 1 Each Tablet, 1 TAB PO Q12H, #14 TAB Prov:MAURICE BERRIOS 02/17/19 Diltiazem Hcl (DILTIAZEM ER) 180 Mg Capsule.er, 180 MG PO BID, #60 CAP 0 Refills Prov:DWAYNE NIEVES MD 02/08/19 Ropinirole Hcl (ROPINIROLE HCL) 0.25 Mg Tablet, 1-2 TAB PO DIRECTED, #60 TAB 0 Refills Take 1 tab 1-3 hours before bed for restless leg syndrome. If no improvemnet in 1 week may increase to 2 tabs Prov:CATHERINE CRESPO APRN OUTPATIENT RECEPTIONIST-C 02/07/19 Gabapentin (GABAPENTIN) 300 Mg Capsule, 1 CAP PO TID, #90 CAPSULE 0 Refills Prov:EPIFANIOGrettaCHICHOCATHERINEQUITA MELENDEZ OUTPATIENT RECEPTIONIST-C 02/02/19 Albuterol Sulfate (PROVENTIL HFA) 6.7 Gm Inh, 2 PUFF INH QID PRN for SHORTNESS OF BREATH, #1 INH 5 Refills Prov:EPIFANIOGrettaCHICHOCATHERINE APRN OUTPATIENT RECEPTIONIST-C 01/23/19 Budesonide/Formoterol Fumarate (SYMBICORT 160-4.5 MCG INHALER) 10.2 Gm Inh, 1 PUFF INH BID, #60 INH 5 Refills Prov:EPIFANIOGrettaCHICHOCATHERINE APRN OUTPATIENT RECEPTIONIST-C 01/23/19 Metoprolol Succinate (TOPROL XL) 25 Mg Tab.er.24h, 1 TAB PO QDAY for 30 Days, #30 TAB 3 Refills Prov:CARLITO CANELA DO 01/17/19 Reported Medications Apixaban (ELIQUIS) 5 Mg Tablet, 5 MG PO DAILY 02/07/19 Tiotropium [place] (SPIRIVA) 18 Mcg/Cap Inh, 1 CAP INH DAILY, INH 01/23/19 Past Medical/Surgical History Patient has a past medical history of migraines, atrial fibrillation, atrial flutter, asthma, pneumonia, COPD, testicular cancer, bilateral: Fracture, depression. Ablation 12/27 Dr. Proctor Patient has a surgical history of tonsillectomy, shoulder surgery, knee surgery, orchiectomy, plate placed into his neck, appendectomy. Patient has a family medical history of cancer, diabetes. Reviewed Nurses Notes: Yes Old Medical Records Reviewed: Yes Hx Smoking: Yes (5-10day) Smoking Status: Current: Every Day Smoker, Light Tobacco Smoker Exposure to Second Hand Smoke?: Yes Hx Substance Use Disorder: No Hx Alcohol Use: No Constitutional Vital Sign - Last 24 Hours 02/21/19 02/21/19 02/21/19 02/21/19 22:13 22:14 22:30 22:35 Temp 97.5 Pulse 163 Resp 17 B/P (MAP) 93/79 93/79 (84) 84/73 (77) Pulse Ox 95 O2 Delivery Room Air O2 Flow Rate 2.0 02/21/19 02/21/19 02/21/19 02/21/19 22:38 22:40 22:45 22:50 Pulse 153 Resp 23 B/P (MAP) 96/44 (61) 76/59 (65) 78/66 (70) 90/65 (73) Pulse Ox 89 02/21/19 02/21/19 02/21/19 02/21/19 22:55 23:00 23:05 23:08 Pulse 141 Resp 19 B/P (MAP) 84/66 (72) 100/76 (84) 104/80 (88) Pulse Ox 94 02/21/19 02/21/19 02/21/19 02/21/19 23:10 23:15 23:20 23:25 Pulse 136 Resp 17 B/P (MAP) 96/72 (80) 102/87 (92) 87/73 (78) 84/63 (70) Pulse Ox 95 02/21/19 02/21/19 02/21/19 02/21/19 23:25 23:30 23:30 23:35 Pulse 136 ??? 130 Resp 17 17 20 B/P (MAP) 84/63 (70) 96/64 (75) 96/64 (75) 89/64 (72) Pulse Ox 95 89 94 02/21/19 02/21/19 02/21/19 02/21/19 23:35 23:40 23:40 23:45 Pulse ? Resp 20 46 B/P (MAP) 89/64 (72) 94/83 (87) 94/83 (87) 82/63 (69) Pulse Ox 95 94 02/21/19 02/21/19 02/21/19 02/21/19 23:45 23:50 23:50 23:55 Pulse 90 125 Resp 21 19 B/P (MAP) 82/63 (69) 91/67 (75) 91/67 (75) 90/65 (73) Pulse Ox 84 91 02/21/19 02/22/19/02/22/19 23:55 00:00 00:00 00:05 Pulse 125 Resp 19 B/P (MAP) 90/65 (73) 81/65 (70) 81/65 (70) 77/31 (46) Pulse Ox 91 02/22/19 02/22/19/02/22/19 00:05 00:10 00:11 00:11 Pulse 79 81 Resp 16 18 B/P (MAP) 77/31 (46) 87/77 (80) 87/77 (80) Pulse Ox 87 85 02/22/19 02/22/19 02/22/19 02/22/19 00:15 00:15 00:20 00:20 Pulse 106 95 Resp 25 16 B/P (MAP) 89/75 (80) 89/75 (80) 98/75 (83) 98/75 (83) Pulse Ox 95 94 02/22/19 02/22/19 02/22/19 02/22/19 00:23 00:23 00:25 00:25 Pulse 107 107 B/P (MAP) 82/72 (75) 82/72 (75) 02/22/19 02/22/19 02/22/19 02/22/19 00:27 00:27 00:30 00:30 Pulse 113 Resp 19 B/P (MAP) 126/118 (121) 126/118 (121) 77/56 (63) 77/56 (63) Pulse Ox 91 02/22/19 02/22/19 02/22/19 02/22/19 00:35 00:40 00:45 00:50 Pulse 89 114 112 128 Resp 10 20 17 26 B/P (MAP) 101/76 (84) 95/70 (78) 102/74 (83) Pulse Ox 91 93 94 93 02/22/19 02/22/19 02/22/19 02/22/19 00:55 01:00 01:05 01:05 Pulse 137 101 95 140 Resp 24 14 26 20 B/P (MAP) 84/72 (76) Pulse Ox 97 94 93 02/22/19 02/22/19 02/22/19 02/22/19 01:05 01:08 01:10 01:15 Pulse 114 ??? 116 Resp 20 25 12 Pulse Ox 93 92 93 O2 Delivery Nasal Cannula O2 Flow Rate 3.0 02/22/19 02/22/19 02/22/19 02/22/19 01:20 01:25 01:30 01:36 Pulse 150 107 132 Resp 28 16 23 B/P (MAP) 113/101 (105) 96/82 (87) Pulse Ox 92 94 92 02/22/19 02/22/19 02/22/19 02/22/19 01:40 01:44 01:49 02:00 Pulse ??? 100 133 Resp 25 20 B/P (MAP) 95/78 (84) 90/76 (81) Pulse Ox 90 93 02/22/19 02/22/19 02:19 02:20 Pulse 103 Resp 31 B/P (MAP) 98/59 (72) Pulse Ox 92 Intake and Output 02/21/19 02/21/19 02/22/19 15:00 23:00 07:00 Intake Total 225 ml Balance 225 ml Physical Exam General Appearance: The patient is alert, has no immediate need for airway protection and no current signs of toxicity. Vital signs stable, tachycardic at 160s to 70s, pulse ox 89% on room air. His baseline HEENT: Pupils equal and round no injection. TMs normal, oropharynx without redness or exudate Respiratory: Chest is non tender, lungs are clear to auscultation. Faint expiratory wheezing noted diffusely Cardiac: regular rate and rhythm Gastrointestinal: Abdomen is soft and non tender, no masses, bowel sounds normal. Musculoskeletal: Neck: Neck is supple and non tender. No JVD, no lymphadenopathy Extremities have full range of motion and are non tender. No edema, no calf tenderness Skin: No rashes or lesions. DIFFERENTIAL DIAGNOSIS: After history and physical exam differential diagnosis was considered for shortness of breath including but not limited to pulmonary infectious process, COPD, asthma, pulmonary embolus, cardiac dysrhythmia, and congestive heart failure. Medical Decision Making Data Points Result Diagram: 02/21/190 02/21/19 2220 Laboratory Hematology Test 02/21/19 22:20 Red Blood Count 3.99 M/uL (4.00-5.60) Mean Corpuscular Volume 101.7 fL (80.0-96.0) Mean Corpuscular Hemoglobin 33.9 pg (26.0-33.0) Mean Corpuscular Hemoglobin Concent 33.3 g/dL (32.0-36.0) Red Cell Distribution Width 14.6 % (11.5-14.5) Mean Platelet Volume 6.9 fL (7.2-11.1) Neutrophils (%) (Auto) 57.8 % (39.4-72.5) Lymphocytes (%) (Auto) 32.6 % (17.6-49.6) Monocytes (%) (Auto) 6.9 % (4.1-12.4) Eosinophils (%) (Auto) 0.9 % (0.4-6.7) Basophils (%) (Auto) 1.8 % (0.3-1.4) Nucleated RBC Relative Count (auto) 0.0 /100WBC Neutrophils # (Auto) 6.9 K/uL (2.0-7.4) Lymphocytes # (Auto) 3.9 K/uL (1.3-3.6) Monocytes # (Auto) 0.8 K/uL (0.3-1.0) Eosinophils # (Auto) 0.1 K/uL (0.0-0.5) Basophils # (Auto) 0.2 K/uL (0.0-0.1) Nucleated RBC Absolute Count (auto) 0.01 K/uL Peripheral Blood Smear Yes Y/N Sodium Level 139 mmol/L (137-145) Potassium Level 4.0 mmol/L (3.5-5.0) Chloride Level 105 mmol/L (98-107) Carbon Dioxide Level 24 mmol/L (22-30) Blood Urea Nitrogen 20 mg/dl (9-21) Creatinine 1.40 mg/dl (0.66-1.25) Glomerular Filtration Rate Calc 52.1 Random Glucose 95 mg/dl (75-110) Calcium Level 9.3 mg/dl (8.4-10.2) Total Bilirubin 0.6 mg/dl (0.2-1.3) Aspartate Amino Transf (AST/SGOT) 39 U/L (0-35) Alanine Aminotransferase (ALT/SGPT) 42 U/L (0-56) Alkaline Phosphatase 81 U/L (0-126) Troponin I < 0.012 ng/ml B-Type Natriuretic Peptide 329 pg/ml (0-100) Total Protein 7.3 g/dl (6.3-8.2) Albumin 4.1 g/dl (3.5-5.0) Chemistry Test 02/21/19 22:20 White Blood Count 11.9 k/uL (4.5-11.0) Red Blood Count 3.99 M/uL (4.00-5.60) Hemoglobin 13.6 g/dL (14.0-18.0) Hematocrit 40.6 % (42.0-52.0) Mean Corpuscular Volume 101.7 fL (80.0-96.0) Mean Corpuscular Hemoglobin 33.9 pg (26.0-33.0) Mean Corpuscular Hemoglobin Concent 33.3 g/dL (32.0-36.0) Red Cell Distribution Width 14.6 % (11.5-14.5) Platelet Count 279 K/uL (150-450) Mean Platelet Volume 6.9 fL (7.2-11.1) Neutrophils (%) (Auto) 57.8 % (39.4-72.5) Lymphocytes (%) (Auto) 32.6 % (17.6-49.6) Monocytes (%) (Auto) 6.9 % (4.1-12.4) Eosinophils (%) (Auto) 0.9 % (0.4-6.7) Basophils (%) (Auto) 1.8 % (0.3-1.4) Nucleated RBC Relative Count (auto) 0.0 /100WBC Neutrophils # (Auto) 6.9 K/uL (2.0-7.4) Lymphocytes # (Auto) 3.9 K/uL (1.3-3.6) Monocytes # (Auto) 0.8 K/uL (0.3-1.0) Eosinophils # (Auto) 0.1 K/uL (0.0-0.5) Basophils # (Auto) 0.2 K/uL (0.0-0.1) Nucleated RBC Absolute Count (auto) 0.01 K/uL Peripheral Blood Smear Yes Y/N Glomerular Filtration Rate Calc 52.1 Calcium Level 9.3 mg/dl (8.4-10.2) Total Bilirubin 0.6 mg/dl (0.2-1.3) Aspartate Amino Transf (AST/SGOT) 39 U/L (0-35) Alanine Aminotransferase (ALT/SGPT) 42 U/L (0-56) Alkaline Phosphatase 81 U/L (0-126) Troponin I < 0.012 ng/ml B-Type Natriuretic Peptide 329 pg/ml (0-100) Total Protein 7.3 g/dl (6.3-8.2) Albumin 4.1 g/dl (3.5-5.0) EKG/Imaging EKG Interpretation 12 lead EK Rhythm: Atrial fibrillation with rapid ventricular response, rate 160 [place]: normal QRS: normal ST segments: normal, comparison to previous EKG dated 02/17/19. There are several, morphology is unchanged, patient is gone from sinus rhythm to atrial fibrillation with rapid ventricular response. [ ] Imaging X-ray: Single view portable chest x-ray was obtained. I viewed the images myself on the PACS system. My interpretation of the images is: No infiltrate,? Atelectasis left base, normal mediastinum, heart size unchanged. The radiologist interpretation had no clinically significant variation from this interpretation. ED Course/Re-evaluation Clinical Indication for ER IV: Hydration, IV Access ED Course Patient was admitted to an examination room. H&P was done. The differential diagnoses was considered. Patient with in A. fib with rapid ventricular response rate in the 160s to 70s. Patient's pulse ox is 89% on room air. Patient been taking Augmentin and numerous inhalers. See cardiology note from with . Patient had a syncopal episode on that day as well. Patient was sent over to the ER and he was cardioverted under conscious sedation and was sinus rhythm. Tonight. Patient's chest x-ray shows some atelectasis at the left base. Otherwise, his labs are unremarkable. His BNP is 329. Copies of rhythm strips showing significant pauses were sent with the patient to [facility]. 02/22/2019 12:24:44 am patient had a coughing fit and had syncope. Came to alert and responsive. Disoriented, asking what had happened. 02/22/2019 12:47:13 am case discussed with cardiology hydro electric station operator at [facility] advises transfer and admit to hospitalist service. He will consult. 02/22/2019 12:56:45 am case discussed with hospitalist at [facility] Dr Cabrera who accepts for transfer to his facility. Decision to Disposition Date: February 21, 2019 Decision to Disposition Time: 23:52 Critical Care Time I spent a total of 60 minutes of critical care time in obtaining history, performing a physical exam, bedside monitoring of interventions, collecting and interpreting tests and discussion with consultants but not including time spent performing procedures. Depart Departure Latest Vital Signs Vital Signs Date Time Temp Pulse Resp B/P (MAP) Pulse Ox O2 Delivery O2 Flow Rate FiO2 02/22/19 02:20 98/59 (72) 02/22/19 02:19 103 31 92 02/22/19 01:05 Nasal Cannula 3.0 02/21/19 22:13 97.5 Impression: Primary Impression: Atrial fibrillation with rapid ventricular response Additional Impressions: Sick sinus syndrome COPD (chronic obstructive pulmonary disease) Cough syncope Condition: Improved Disposition: XFER TO ACUTE CARE HOSPITAL Referrals: CATHERINE CRESPO APRN OUTPATIENT RECEPTIONIST-C (PCP) Patient Instructions: A-fib (Atrial Fibrillation) (ED) Additional Instructions: Follow-up with cardiology as soon as possible Continue all medications as prescribed Return to the ER for any worsening Problem Qualifiers Additional Impressions: COPD (chronic obstructive pulmonary disease) COPD type: unspecified COPD Qualified Codes: J44.9 - Chronic obstructive pulmonary disease, unspecified DARYL PIÑA DO February 21, 2019 22:11
[2019-02-21] MEDS ORDERED: DILTIAZEM 5 MG/ML 5ML IVPUSH IVP ONE ×2 (22:20→23:10)
[2019-02-21 22:30] LABS: PLATELET COUNT, AUTOMATED 279 K/uL (150-450)
[2019-02-21] MEDS ORDERED: NS(*) 0.9% 1000 ML BAG 1,000 ML IV ONE (22:30)
--- NOTE | 2019-02-21 22:39 | EKG ---
FACILITY: [facility] PATIENT NAME: SULEMAN CORREA : [id number] MR: [id number] V: [id number] EXAM DATE: ORDERING PHYSICIAN: DARYL PIÑA TECHNOLOGIST: KARTHIKEYAN Pop Reason : CARDIAC Blood Pressure : / mmHG Vent. Rate : 159 BPM Atrial Rate : 174 BPM P-R Int : 000 ms QRS Dur : 072 ms QT Int : 282 ms P-R-T Axes : 000 087 066 degrees QTc Int : 458 ms Atrial fibrillation with RVR Abnormal ECG When compared with ECG of 17-FEB-2019 13:43, Atrial fibrillation has replaced Sinus rhythm Vent. rate has increased BY 80 BPM Confirmed by Sav Stanton ([id number]) on 02/22/2019 7:53:53 AM Referred By: Confirmed By:Sav Torre
--- NOTE | 2019-02-21 23:24 | RADIOLOGY IMAGING REPORT ---
FACILITY: [facility] - [place], [place] PATIENT NAME: Simone Wade : 1960 MR: [id number] V: [id number] EXAM DATE: ORDERING PHYSICIAN: DARYL PIÑA TECHNOLOGIST: Location: [facility] Patient: Simone Wade : 1960 Visit/Account:[id number] Date of Sevice: 02/21/2019 AP CHEST 02/21/2019 10:16 PM. INDICATION: Chest Pain COMPARISON: 02/17/2019 and multiple prior examinations. FINDINGS: Lungs are well-expanded. Mild bronchitic changes similar to prior examinations. Minimal streaky opa cification at the left base likely represents scarring or atelectasis. No pleural effusion or pneumo thorax. Heart size is unchanged. Incompletely imaged cervical fusion hardware. IMPRESSION: Minimal left base scarring/atelectasis, otherwise nonacute. Report Dictated By: Mani Tadeo MD at 02/21/2019 11:18 PM Report E-Signed By: Mani Tadeo MD at 02/21/2019 11:20 PM WSN:[id number]
[2019-02-22] MEDS ORDERED: ALBUTEROL/IPRATROPIUM 3 ML NEB NEB ONE (01:00)
[2019-02-22] MEDS ORDERED: methylPREDNIS SUCC 125 MG/2ML IVP ONE (01:00)
[2019-02-22 02:20] VITALS: BP 98/59
== END 2019-02-22 02:34 | disposition short-term general hospital (02) ==
LOC: ER 22:21
DX: I48.2 Chronic atrial fibrillation (principal); I49.5 Sick sinus syndrome; J44.9 Chronic obstructive pulmonary disease, unspecified; R55 Syncope and collapse; Z87.891 Personal history of nicotine dependence
CPT/HCPCS: 71045; 83880; 84484; 85025; 93005; 94640; 96361; 96374; 96375; 96376; 99291; J2930; J3490; J7030; J7620; 82040; 82247; 82310; 82374; 82435; 82565; 82947; 84075; 84132; 84155; 84295; 84450; 84460; 84520

== ENCOUNTER → 2019-02-22 | Outpatient (CLI) | payer BC ==
[2018-12-21 08:21] VITALS: BMI 25.8
== END ==
LOC: AMB 02:12
PROVIDERS: ATTEND Nurse Practitioner
DX: I49.9 Cardiac arrhythmia, unspecified (principal)
CPT/HCPCS: A0425; A0427

== ENCOUNTER 2019-02-28 19:56 | Emergency (ER) | payer BC ==
[2018-12-21 08:21] VITALS: Wt 81.6 kg
[2019-02-28 20:03] VITALS: BP 114/92
--- NOTE | 2019-02-28 20:20 | ER Report ---
History and Physical Time Seen By MD: 20:11 Hx. of Stated Complaint: pt coughed, passed out, hit face on door jam HPI/ROS CHIEF COMPLAINT: laceration to face, fall/syncope HISTORY OF PRESENT ILLNESS: This is a 59 year old male. He got up to stir the sound, had some coughing and passed out, brief time, and had scrapes and laceration to left side of face. He denies headache, but hurts where he has abrasions. He still is following up with his cardiologists for medicines to regulate his atrial fibrillation. His last tetanus was 2-3 years ago. He does not want any other workup at this time other than the laceration care. Denies any chest pain. Denies shortness breath. Normal vision. No weakness or numbness in the extremities. Allergies: Coded Allergies: tetracycline (Verified Allergy, Intermediate, ITCHING, 02/28/19) naproxen (Verified Adverse Reaction, Mild, RESTLESSNESS, 02/28/19) Home Meds Active Scripts Amoxicillin/Pot Clav 875-125 Mg Tab (AUGMENTIN 875-125 TABLET) 1 Each Tablet, 1 TAB PO Q12H, #14 TAB Prov:MAURICE BERRIOS 02/17/19 Diltiazem Hcl (DILTIAZEM ER) 180 Mg Capsule.er, 180 MG PO BID, #60 CAP 0 Refills Prov:DWAYNE NIEVES MD 02/08/19 Ropinirole Hcl (ROPINIROLE HCL) 0.25 Mg Tablet, 1-2 TAB PO DIRECTED, #60 TAB 0 Refills Take 1 tab 1-3 hours before bed for restless leg syndrome. If no improvemnet in 1 week may increase to 2 tabs Prov:CATHERINE CRESPO APRN SENIOR MECHANICAL PROJECT MANAGER-C 02/07/19 Gabapentin (GABAPENTIN) 300 Mg Capsule, 1 CAP PO TID, #90 CAPSULE 0 Refills Prov:CATHERINE CRESPO APRN-C 02/02/19 Albuterol Sulfate (PROVENTIL HFA) 6.7 Gm Inh, 2 PUFF INH QID PRN for SHORTNESS OF BREATH, #1 INH 5 Refills Prov:CATHERINE CRESPO APRN SENIOR MECHANICAL PROJECT MANAGER-C 01/23/19 Budesonide/Formoterol Fumarate (SYMBICORT 160-4.5 MCG INHALER) 10.2 Gm Inh, 1 PUFF INH BID, #60 INH 5 Refills Prov:SHUBHAMCATHERINE VALENTINO NORA SENIOR MECHANICAL PROJECT MANAGER-C 01/23/19 Metoprolol Succinate (TOPROL XL) 25 Mg Tab.er.24h, 1 TAB PO QDAY for 30 Days, #30 TAB 3 Refills Prov:CARLITO CANELA DO 01/17/19 Reported Medications Apixaban (ELIQUIS) 5 Mg Tablet, 5 MG PO DAILY 02/07/19 Tiotropium [place] (SPIRIVA) 18 Mcg/Cap Inh, 1 CAP INH DAILY, INH 01/23/19 Reviewed Nurses Notes: Yes Hx Smoking: Yes (5-day) Smoking Status: Current: Every Day Smoker, Light Tobacco Smoker Exposure to Second Hand Smoke?: Yes Hx Substance Use Disorder: No Hx Alcohol Use: No Constitutional Vital Sign - Last 24 Hours 02/28/19 20:03 Temp 98.0 Pulse 124 Resp 16 B/P (MAP) 114/92 Pulse Ox 93 O2 Delivery Room Air Physical Exam General Appearance: Alert, no acute distress. No signs of toxicity. Eyes: Pupils equal and round no injection. Reactive to light, extraocular movements are intact. ENT: Normal oral mucosa. Moist mucous membranes. Neck: Neck is supple and non tender. Respiratory: Lungs are clear to auscultation. Cardiac: Tachycardia with a regular rhythm. Neuro: Alert and oriented 3. Cranial nerves without deficits. No deficits in the extremities. Musculoskeletal: Extremities have full range of motion. No tenderness in the neck or back. Skin: Abrasion on his left cheek and forehead. Small 2 cm laceration on the face just to the side of the left eye. DIFFERENTIAL DIAGNOSIS: After history and physical exam differential diagnosis was considered for syncope, fall, skin abrasions and laceration Medical Decision Making ED Course/Re-evaluation ED Course I discussed with the patient doing further workup for the tachycardia and syncope, but he does not want this done tonight. He simply interested in the wound care. He understands the risks associated with his chronic heart condition and this had multiple workups and does not want any of this done tonight. I did not make him sign an AMA form but we did have this discussion and I have seen him multiple times in the ER for his heart problems in the past and he is well aware of the risks associated with this. Procedure: Laceration Repair Verbal consent from patient after discussing repair options, risks and benefits. Wound cleaned extensively with saline. Anesthesia: None. Location: On the face just to the left of the left eye. Length: 2 cm. Character: Superficial. Wound repair: Adhesive with Dermabond. The wound repair was simple and performed by myself. Wound care instructions provided Decision to Disposition Date: February 28, 2019 Decision to Disposition Time: 20:36 Depart Departure Latest Vital Signs Vital Signs Date Time Temp Pulse Resp B/P (MAP) Pulse Ox O2 Delivery O2 Flow Rate FiO2 02/28/19 20:03 98.0 124 16 114/92 93 Room Air Impression: Primary Impression: Superficial laceration of face Condition: Improved Disposition: HOME OR SELF-CARE Referrals: CATHERINE CRESPO APRN SENIOR MECHANICAL PROJECT MANAGER-C (PCP) Patient Instructions: Facial Laceration (ED), Skin Adhesive Care (ED) DWAYNE NIEVES MD February 28, 2019 20:20
== END 2019-02-28 20:41 | disposition home or self-care (01) ==
LOC: ER 20:20
DX: S01.81XA Laceration without foreign body of other part of head, initial encounter (principal); R55 Syncope and collapse; R00.0 Tachycardia, unspecified
CPT/HCPCS: 99283

== ENCOUNTER 2019-03-17 18:15 | Emergency (ER) | payer BC ==
[2018-12-21 08:21] VITALS: Wt 86.2 kg
[~2019-03-17 18:15] MED LIST changes: +PRED20TA6 PO; +Work Note
[2019-03-17 18:23] VITALS: BP 125/93
[2019-03-17] MEDS ORDERED: AMIO200T49 PO (18:32)
[2019-03-17] MEDS ORDERED: AZIT-18 PO (19:07)
--- NOTE | 2019-03-17 19:08 | ER Report ---
History and Physical Time Seen By MD: 18:28 Hx. of Stated Complaint: BRONCHITIS HPI/ROS CHIEF COMPLAINT: Bronchitis HISTORY OF PRESENT ILLNESS: 59 year old male presents to ED stating that he was diagnosed with bronchitis. Report that he received a call from both his primary care provider and director of career services today that he had bronchitis. His director of career services recommend that he go to urgent care or the ER. Patient states he has had a cough since his cardioversion for A-fib several weeks ago. Cough is non-productive, no fever. Patient states he is more short of breath than normal. He also reports he has fainted a few times due to his coughing. Patient reports he went to see his PCP 1 week ago and was placed on prednisone, however he has not found any relief since be placed on that. REVIEW OF SYSTEMS: Constitutional: No fever, no appetite changes Respiratory: Non-productive cough, dyspnea Cardiovascular: Has a burning chest pain due to cough, no palpitations. Gastrointestinal: No vomiting, no abdominal pain. Musculoskeletal: No back pain. Allergies: Coded Allergies: tetracycline (Verified Allergy, Intermediate, ITCHING, 03/17/19) naproxen (Verified Adverse Reaction, Mild, RESTLESSNESS, 03/17/19) Home Meds Active Scripts Azithromycin 250 Mg Tab (AZITHROMYCIN 250 MG TAB) 250 Mg Tablet, 1 TAB PO QDAY for 5 Days, #6 TAB Take 2 tabs today and then 1 tab a day until gone. Prov:ADILSON BERRIOSSSE YOLANDA 03/17/19 Ropinirole Hcl (ROPINIROLE HCL) 0.25 Mg Tablet, 1-2 TAB PO DIRECTED, #90 TAB 1 Refill Take 1 tab 1-3 hours before bed for restless leg syndrome. If no improvemnet in 1 week may increase to 2 tabs Prov:CATHERINE CRESPO APRN-C 03/10/19 [Work Note] No Conflict Check Prov:CATHERINE CRESPO APRN-C 03/09/19 Prednisone (PREDNISONE) 20 Mg Tablet, 0.5-3 TAB PO QDAY, #20 TAB 0 Refills 3 tabs daily x 3 days 2 tabs daily x 3 days 1 tab daily x 3 days 0.5 tabs daily x 3 days Prov:CATHERINE CRESPO APRN-C 03/09/19 Diltiazem Hcl (DILTIAZEM ER) 180 Mg Capsule.er, 180 MG PO BID, #60 CAP 0 Refills Prov:DWAYNE NIEVES MD 02/08/19 Gabapentin (GABAPENTIN) 300 Mg Capsule, 1 CAP PO TID, #90 CAPSULE 0 Refills Prov:CATHERINE CRESPO APRN-Vielka 02/02/19 Albuterol Sulfate (PROVENTIL HFA) 6.7 Gm Inh, 2 PUFF INH QID PRN for SHORTNESS OF BREATH, #1 INH 5 Refills Prov:CATHERINE CRESPO APRN-C 01/23/19 Budesonide/Formoterol Fumarate (SYMBICORT 160-4.5 MCG INHALER) 10.2 Gm Inh, 1 PUFF INH BID, #60 INH 5 Refills Prov:CATHERINE CRESPO APRN-C 01/23/19 Metoprolol Succinate (TOPROL XL) 25 Mg Tab.er.24h, 1 TAB PO QDAY for 30 Days, #30 TAB 3 Refills Prov:CARLITO CANELA DO 01/17/19 Reported Medications Amiodarone Hcl (AMIODARONE HCL) 200 Mg Tablet, 200 MG PO BID 03/17/19 Apixaban (ELIQUIS) 5 Mg Tablet, 5 MG PO DAILY 02/07/19 Tiotropium [place] (SPIRIVA) 18 Mcg/Cap Inh, 1 CAP INH DAILY, INH 01/23/19 Past Medical/Surgical History Past medical hx of migraines, pericardioeffusion, atrial fibrilation with ablation of 12/22/2018 and cardioversion on 02/17/2019, asthma, COPD, hx of pneumonia, testicular cancer, neck pain, bilateral collarbone fracture, depression/anxiety. Surgical hx of titanium plate placed in neck, appendectomy, orchiectomy, knee surgery, shoulder surgery, and tonsillectomy. Reviewed Nurses Notes: Yes Hx Smoking: Yes (5-10day) Smoking Status: Current: Every Day Smoker, Light Tobacco Smoker Exposure to Second Hand Smoke?: Yes Hx Substance Use Disorder: No Hx Alcohol Use: No Constitutional Vital Sign - Last 24 Hours 03/17/19 18:23 Temp 97.4 Pulse 117 Resp 18 B/P (MAP) 125/93 Pulse Ox 96 O2 Delivery Room Air Physical Exam General Appearance: The patient is alert, has no immediate need for airway protection and no current signs of toxicity. Eyes: Pupils equal and round no injection. Respiratory: Chest is non tender, lungs are clear to auscultation, although diminished throughout.. Cardiac: regular rhythm but tachy at 119 bpm Gastrointestinal: Abdomen is soft and non tender, no masses, bowel sounds normal. Musculoskeletal: Neck: Neck is supple and non tender. Extremities have full range of motion and are non tender. Skin: No rashes or lesions. DIFFERENTIAL DIAGNOSIS: After history and physical exam differential diagnosis was considered for bronchitis. Medical Decision Making EKG/Imaging EKG Interpretation 12 lead EKG: Rhythm: Sinus tachycardia with ventricular rate of 119 [place]: normal QRS: normal ST segments: normal Monitor Interpretation: Sinus Tachycardia ED Course/Re-evaluation ED Course Upon arrival to the ED, patient admitted to an exam room, hx and physicla obtained, differentials considered. Patient presents to ED stating that he was diagnosed with bronchitis. Report that he received a call from both his primary care provider and director of career services today that he had bronchitis. His director of career services recommend that he go to urgent care or the ER. Patient states he has had a cough since his cardioversion for A-fib several weeks ago. Cough is non-productive, no fever. Patient states he is more short of breath than normal. He also reports he has fainted a few times due to his coughing. Patient reports he went to see his PCP 1 week ago and was placed on prednisone, however he has not found any relief since be placed on that. On exam, lungs clear to auscultation, but decreased throughout. Heart rhythm regular but tachy at 119 bpm ventricular rate. Patient states that he would like to not be poked and prodded today. I offered patient the option to have blood drawn to look at his labs, however, this would likely not change the coarse of therapy which would likely be antibiotics. Patient opted for no blood draw and just antibiotics. Will send patient home with a coarse of azithromycin. Since patient was placed on prednisone a week ago and his tremor could be a possible side effect, I will forgo a course of steroids at this time. Decision to Disposition Date: Mar 17, 2019 Decision to Disposition Time: 19:05 Depart Departure Latest Vital Signs Vital Signs Date Time Temp Pulse Resp B/P (MAP) Pulse Ox O2 Delivery O2 Flow Rate FiO2 03/17/19 18:23 97.4 117 18 125/93 96 Room Air Impression: Primary Impression: Bronchitis Condition: Condition Unchanged Disposition: HOME OR SELF-CARE Referrals: CATHERINE CRESPO APRN-C (PCP) New Scripts Azithromycin 250 Mg Tab (AZITHROMYCIN 250 MG TAB) 250 Mg Tablet 1 TAB PO QDAY for 5 Days, #6 TAB Take 2 tabs today and then 1 tab a day until gone. Prov: MAURICE BERRIOS 03/17/19 Patient Instructions: Acute Bronchitis (ED) Additional Instructions: Take antibiotic as prescribed. Drink plenty of water and get plenty of rest. Follow-up with your primary care provider next week. Inform your director of career services of how you are feeling next week. Return to the ER if you have worsening cough, worsening shortness of breath, fever, or any other concerns. MAURICE BERRIOS Mar 17, 2019 19:08
--- NOTE | 2019-03-20 09:27 | EKG ---
[place] [facility] [place] SULEMAN CORREA : [id number] MR: [id number] V: [id number] EXAM DATE: ORDERING PHYSICIAN: MAURICE BERRIOS TECHNOLOGIST: Test Reason : Blood Pressure : / mmHG Vent. Rate : 119 BPM Atrial Rate : 119 BPM P-R Int : 148 ms QRS Dur : 092 ms QT Int : 326 ms P-R-T Axes : 000 083 064 degrees QTc Int : 458 ms Sinus tachycardia Otherwise normal ECG When compared with ECG of 21-FEB-2019 22:19, Sinus rhythm has replaced Atrial fibrillation QRS duration has increased ST now depressed in Inferior leads Nonspecific T wave abnormality no longer evident in Anterior leads Confirmed by BUBBA UMANA ([id number]) on 03/20/2019 5:12:57 PM Referred By: Confirmed By:BUBBA UMAAN
== END 2019-03-17 19:12 | disposition home or self-care (01) ==
LOC: ER 18:26
DX: J40 Bronchitis, not specified as acute or chronic (principal); R00.0 Tachycardia, unspecified
CPT/HCPCS: 93005; 99283

== ENCOUNTER → 2019-04-06 | Outpatient (CLI) | payer BC ==
[2018-12-21 08:21] VITALS: BMI 25.8
[~2019-04-06] MED LIST changes: +AMIO200T49 PO; +AZIT-18 PO; +TRIA16.911
== END ==
LOC: US 00:27
PROVIDERS: ATTEND Internal Medicine Cardiovascular Disease
DX: I31.3 Pericardial effusion (noninflammatory) (principal)
CPT/HCPCS: 93306

== ENCOUNTER → 2019-04-12 | Outpatient (CLI) | payer BC ==
[2018-12-21 08:21] VITALS: BMI 25.8
== END ==
LOC: RESP 07:04
PROVIDERS: ATTEND Internal Medicine
DX: J84.9 Interstitial pulmonary disease, unspecified (principal)
CPT/HCPCS: 94060; 94726; 94729

== ENCOUNTER → 2019-04-18 | Outpatient (CLI) | payer BC ==
[2018-12-21 08:21] VITALS: BMI 25.8
--- NOTE | 2019-04-18 16:18 | RADIOLOGY IMAGING REPORT ---
FACILITY: [facility] - [place] PATIENT NAME: Simone Wade : 1960 MR: [id number] V: [id number] EXAM DATE: ORDERING PHYSICIAN: WES GOMEZ TECHNOLOGIST: Location: [facility] - [place] Patient: Simone Wade : 1960 Visit/Account:[id number] Date of Sevice: 04/18/2019 CT CHEST W/O CONTRAST History: Initial lung disease. Long-standing smoking history. TECHNIQUE: Contiguous axial images were performed through the chest to the level of the adrenal gla nds. No IV contrast was administered. Coronal and sagittal reformatting was also performed. One of t he following dose optimization techniques was utilized in the performance of this exam: Automated exp osure control; adjustment of the mA and/or kV according to the patient's size; or use of an iterative reconstruction technique. Specific details can be referenced in the facility's radiology CT exam o perational policy. COMPARISON STUDIES: none. Lungs / Pleura: No pulmonary nodules are seen. Lungs are moderately hyperinflated. I do not, jesica r, see definite bullous disease. There is subtle subpleural interstitial thickening which is most pro minent at the lung bases. This persists on prone images. No pleural effusions. Mediastinum/nodes: Mediastinal lymph nodes upper normal limits in size. For example, a node in the a ortopulmonary window (axial image 40 series 6) measures 1.6 x 1.1 cm. Heart and vessels: There is a small pericardial effusion. Heart normal in size. Musculoskeletal / Body wall: negative. Upper abdomen: Visualized abdominal viscera negative. IMPRESSION: Findings suggestive of mild interstitial pulmonary fibrosis. Correlate with pulmonary function tests. Small pericardial effusion. Report Dictated By: Joshua Clark MD at 04/18/2019 4:05 PM Report E-Signed By: Joshua Clark MD at 04/18/2019 4:12 PM WSN:[id number]
== END ==
LOC: CT 01:04
PROVIDERS: ATTEND Internal Medicine
DX: J84.9 Interstitial pulmonary disease, unspecified (principal); I31.3 Pericardial effusion (noninflammatory)
CPT/HCPCS: 71250

== ENCOUNTER 2019-05-22 11:43 | Observation (INO) | payer BC ==
[~2019-05-22] VITALS: Ht 182.9 cm; Wt 83.0 kg
--- NOTE | 2019-05-22 11:49 | ER Report ---
History and Physical Time Seen By MD: 11:44 HPI/ROS CHIEF COMPLAINT: Chest pain and headache HISTORY OF PRESENT ILLNESS: This is a 59-year-old male who presents to the emergency department for chest pain and headache. Patient states that around 2:30 or 3:00 this morning he woke up with a headache, took some ibuprofen, went back to sleep got up around 7:00 felt okay went to work then was not feeling as well, had some neck pain, states drank a lot of water, then felt a little bit better, but then around 8:30 he began to have some neck pain that radiated down into his chest. He denies back pain, no abdominal pain. No fevers or chills. He is very anxious and tearful. He has a history of atrial fibrillation, he also states that he has a pulse ox when he used pulse ox at his work he noted his heart rate down to the 40s. In the emergency department he is 120s. He also has a history of major fibrillation, takes diltiazem and eliquis. No rashes, no back pain, no dysuria, no diarrhea or bloody stools. REVIEW OF SYSTEMS: Constitutional: No fever, no chills. Eyes: No discharge. ENT: No sore throat. Cardiovascular: As above. Respiratory: As above. Gastrointestinal: No abdominal pain, no vomiting. Genitourinary: No hematuria. Musculoskeletal: No back pain. Skin: No rashes. Neurological: No headache. Allergies: Coded Allergies: tetracycline (Verified Allergy, Intermediate, ITCHING, 05/22/19) naproxen (Verified Adverse Reaction, Mild, RESTLESSNESS, 05/22/19) Home Meds Active Scripts Ropinirole Hcl (ROPINIROLE HCL) 0.25 Mg Tablet, 1-2 TAB PO DIRECTED, #90 TAB 1 Refill Take 1 tab 1-3 hours before bed for restless leg syndrome. If no improvemnet in 1 week may increase to 2 tabs Prov:CATHERINE CRESPO APRN 05/11/19 [Work Note] No Conflict Check Prov:CATHERINE CRESPO APRN 03/24/19 Triamcinolone Acetonide (Triamcinolone Acetonide) 55 Mcg [place], 2 SPRAY NA DAILY, #1 BOTTLE 5 Refills Prov:CATHERINE CRESPO APRNC 03/24/19 Diltiazem Hcl (DILTIAZEM ER) 180 Mg Capsule.er, 180 MG PO BID, #60 CAP 0 Refills Prov:DWAYNE NIEVES MD 02/08/19 Gabapentin (GABAPENTIN) 300 Mg Capsule, 1 CAP PO TID, #90 CAPSULE 0 Refills Prov:CATHERINE CRESPO APRNP-C 02/02/19 Albuterol Sulfate (PROVENTIL HFA) 6.7 Gm Inh, 2 PUFF INH QID PRN for SHORTNESS OF BREATH, #1 INH 5 Refills Prov:CATHERINE CRESPO APRNP-C 01/23/19 Budesonide/Formoterol Fumarate (SYMBICORT 160-4.5 MCG INHALER) 10.2 Gm Inh, 1 PUFF INH BID, #60 INH 5 Refills Prov:CATHERINE CRESPO APRNP-C 01/23/19 Metoprolol Succinate (TOPROL XL) 25 Mg Tab.er.24h, 1 TAB PO QDAY for 30 Days, #30 TAB 3 Refills Prov:CARLITO CANELA DO 01/17/19 Reported Medications Amiodarone Hcl (AMIODARONE HCL) 200 Mg Tablet, 200 MG PO BID 03/17/19 Apixaban (ELIQUIS) 5 Mg Tablet, 5 MG PO DAILY 02/07/19 Tiotropium [place] (SPIRIVA) 18 Mcg/Cap Inh, 1 CAP INH DAILY, INH 01/23/19 Past Medical/Surgical History The patient has a past medical surgical history of migraines, her cranial effusion, atrial fibrillation with ablation, cardioversion, asthma, COPD, pneumonia, testicular cancer, recurrent neck pain, bilateral collarbone fractures, depression, anxiety, titanium plates placed in neck, appendectomy, orchiectomy, knee surgery, shoulder surgery, and tonsillectomy. Reviewed Nurses Notes: Yes Hx Smoking: Yes (5-10day) Smoking Status: Current: Every Day Smoker, Light Tobacco Smoker Exposure to Second Hand Smoke?: Yes Hx Substance Use Disorder: No Hx Alcohol Use: No Constitutional Vital Sign - Last 24 Hours 05/22/19 05/22/19 05/22/19 05/22/19 11:43 11:44 11:52 11:53 Pulse 135 124 Resp 24 20 B/P (MAP) 102/77 (85) 88/72 (77) Pulse Ox 100 99 05/22/19 05/22/19 05/22/19 05/22/19 11:54 11:55 11:59 12:04 Temp 97.8 Pulse 122 123 Resp 22 32 B/P (MAP) 91/70 (77) 102/77 89/70 (76) Pulse Ox 100 99 O2 Delivery Room Air 05/22/19 05/22/19 05/22/19 05/22/19 12:10 12:15 12:30 12:45 Pulse 118 115 116 Resp 30 32 28 B/P (MAP) 85/66 (72) 100/71 (81) 118/86 (97) 115/81 (92) Pulse Ox 99 98 99 05/22/19 05/22/19 13:00 13:35 Pulse 116 115 Resp 24 18 B/P (MAP) 112/98 (103) 115/87 (96) Pulse Ox 85 97 O2 Delivery Nasal Cannula O2 Flow Rate 2 Physical Exam General Appearance: The patient is alert, has no immediate need for airway protection and no signs of toxicity. Eyes: Pupils equal and round no pallor or injection. ENT, Mouth: Mucous membranes are dry. Respiratory: There are no retractions, lungs are clear to auscultation. Cardiovascular: Regular rate and rhythm. No murmurs, clicks or rubs. Gastrointestinal: Abdomen is soft and non tender, no masses, bowel sounds normal. Neurological: Alert and oriented 4. Moving all extremities. Falling. No focal neurodeficits. Skin: Warm and dry, no rashes. Musculoskeletal: Neck is supple non tender. Extremities are nontender, nonswollen and have full range of motion. DIFFERENTIAL DIAGNOSIS: After history and physical exam differential diagnosis was considered for chest pain including but not limited to myocardial ischemia, pericarditis pulmonary embolus, chest wall pain, pleural inflammation and pulmonary infectious causes. Medical Decision Making Data Points Result Diagram: 05/22/19 1151 05/22/19 1151 Laboratory Hematology Test 05/22/19 11:51 White Blood Count 16.0 k/uL (4.5-11.0) H Red Blood Count 3.85 M/uL (4.00-5.60) L Hemoglobin 13.1 g/dL (14.0-18.0) L Hematocrit 39.2 % (42.0-52.0) L Mean Corpuscular Volume 102.0 fL (80.0-96.0) H Mean Corpuscular Hemoglobin 34.1 pg (26.0-33.0) H Mean Corpuscular Hemoglobin Concent 33.5 g/dL (32.0-36.0) Red Cell Distribution Width 13.9 % (11.5-14.5) Platelet Count 399 K/uL (150-450) Mean Platelet Volume 6.8 fL (7.2-11.1) L Neutrophils (%) (Auto) 77.8 % (39.4-72.5) H Lymphocytes (%) (Auto) 14.2 % (17.6-49.6) L Monocytes (%) (Auto) 6.2 % (4.1-12.4) Eosinophils (%) (Auto) 1.2 % (0.4-6.7) Basophils (%) (Auto) 0.6 % (0.3-1.4) Nucleated RBC Relative Count (auto) 0.1 /100WBC Neutrophils # (Auto) 12.5 K/uL (2.0-7.4) H Lymphocytes # (Auto) 2.3 K/uL (1.3-3.6) Monocytes # (Auto) 1.0 K/uL (0.3-1.0) Eosinophils # (Auto) 0.2 K/uL (0.0-0.5) Basophils # (Auto) 0.1 K/uL (0.0-0.1) Nucleated RBC Absolute Count (auto) 0.02 K/uL Peripheral Blood Smear Y/N Chemistry Test 05/22/19 00:00 05/22/19 11:51 05/22/19 13:03 Magnesium Level 1.9 mg/dl (1.7-2.2) Sodium Level 139 mmol/L (137-145) Potassium Level 4.2 mmol/L (3.5-5.0) Chloride Level 103 mmol/L (98-107) Carbon Dioxide Level 22 mmol/L (22-30) Blood Urea Nitrogen 21 mg/dl (9-21) Creatinine 2.00 mg/dl (0.66-1.25) Glomerular Filtration Rate Calc 34.5 Random Glucose 110 mg/dl (75-110) Calcium Level 9.8 mg/dl (8.4-10.2) Total Bilirubin 1.1 mg/dl (0.2-1.3) Aspartate Amino Transf (AST/SGOT) 42 U/L (0-35) Alanine Aminotransferase (ALT/SGPT) 55 U/L (0-56) Alkaline Phosphatase 122 U/L (0-126) Troponin I < 0.012 ng/ml Total Protein 8.2 g/dl (6.3-8.2) Albumin 4.3 g/dl (3.5-5.0) Thyroid Stimulating Hormone (TSH) 1.69 uIU/ml (0.46-4.68) Lactate 1.6 mmol/L (0.7-2.1) Toxicology Test 05/22/19 13:23 Urinalysis Test 05/22/19 13:23 EKG/Imaging EKG Interpretation 12 lead EKG: Time of EKG 1142. Rhythm: Sinus tachycardia, ventricular rate 121 bpm. [place]: normal QRS: Narrow complex. ST segments: No ST depression or elevation. Similar to the 03/17/2019 EKG. When compared to the 02/21/2019 EKG, showing atrial fibrillation with RVR. Imaging PATIENT NAME: Simone Wade : 1960 MR: [id number] V: [id number] EXAM DATE: ORDERING PHYSICIAN: JOSE SPICER TECHNOLOGIST: Location: [facility] - [place] Patient: Siomne Wade : 1960 Visit/Account:[id number] Date of Sevice: 05/22/2019 CHEST SINGLE AP Indication: Chest pain Comparison: Chest x-ray 02/21/2019. Findings: Lungs: Right upper lobe airspace opacity is new from the prior study. Left lung is clear. Mediastinum/pulmonary vasculature: Heart size and pulmonary vasculature are normal. Bones/soft tissues: Normal. IMPRESSION: 1. New right upper lobe airspace opacity consistent with pneumonia. 2. Clear left lung. Report Dictated By: Catrachito Gonzalez at 05/22/2019 12:17 PM Report E-Signed By: Catrachito Gonzalez at 05/22/2019 12:19 PM WSN:[id number] ED Course/Re-evaluation Clinical Indication for ER IV: Hydration, IV Access ED Course Patient was admitted to room. After physical obtained differential diagnoses were considered. An IV started. A CBC, CMP, lactate and blood cultures were obtained. Patient was given a 1 L normal saline bolus 2. Patient was very anxious and tachycardic, EKG showing sinus tachycardia. Improvement of the patient's anxiety, his heart rate improved after the fluids, down to 110-115. Blood pressure improved he was a 5 systolic, last blood pressure on admission was 115/87.CBC showing white count of 16, with a left shift, MCV 102, chemistry showing creatinine 2.0 which is abnormal when compared to the patient's historical data, lactate 1.6, negative troponin. Single view chest x-ray showing a right upper lobe pneumonia. All the results were reviewed with patient, he was very anxious initially, as noted below, I did end up giving the patient 0.5 mg IV Ativan patient was agreeable with this, patient had significant relief of his anxiety, he is agreeable with an admission to the medical floor. He was also given 1 g of Rocephin. I did speak with Dr. dee torre, the hospital. Call as noted below, he's accepted the patient in the Hospital services. 05/22/2019 12:40:21 pm I did review the laboratory results as well as the chest x-ray consistent with a right upper lobe pneumonia, I did recommend an admission to the hospital, the patient became very anxious and tearful crying, he states that he wants to leave, I did talk to him at length about staying here for going to draw blood cultures, his daughter is at the bedside, she is currently talking to him about staying in the hospital, I did tell the patient that with his elevated heart rate, his kidney function and the elevated white blood cell count and his presentation I really feel that a hospital admission is in his best interest. 05/22/2019 1:29:[address] dee Torre, the hospitalist on- call, he's accepted the patient in the Hospital services for right upper lobe pneumonia, tachycardia, and acute renal failure. Decision to Disposition Date: May 22, 2019 Decision to Disposition Time: 13:29 Depart Departure Latest Vital Signs Vital Signs Date Time Temp Pulse Resp B/P (MAP) Pulse Ox O2 Delivery O2 Flow Rate FiO2 05/22/19 13:35 115 18 115/87 (96) 97 Nasal Cannula 2 05/22/19 11:55 97.8 Impression: Primary Impression: Community acquired pneumonia of right upper lobe of lung Additional Impressions: Acute renal failure Sinus tachycardia by electrocardiogram Condition: Improved Disposition: Admitted from ER Problem Qualifiers Additional Impressions: Acute renal failure Acute renal failure type: unspecified Qualified Codes: N17.9 - Acute kidney failure, unspecified JOSE SPICER J[employer] SOFTWARE ENGINEER-BC May 22, 2019 11:49
[2019-05-22] MEDS ORDERED: NS(*) 0.9% 1000 ML BAG 1,000 ML IV ONE ×2 (12:03→12:15)
[2019-05-22 12:11] LABS: PLATELET COUNT, AUTOMATED 399 K/uL (150-450)
--- NOTE | 2019-05-22 12:29 | RADIOLOGY IMAGING REPORT ---
FACILITY: [facility] - [place] PATIENT NAME: Simone Wade : 1960 MR: [id number] V: [id number] EXAM DATE: ORDERING PHYSICIAN: JOSE SPICER TECHNOLOGIST: Location: [facility] - [place] Patient: Simone Wade : 1960 Visit/Account:[id number] Date of Sevice: 05/22/2019 CHEST SINGLE AP Indication: Chest pain Comparison: Chest x-ray 02/21/2019. Findings: Lungs: Right upper lobe airspace opacity is new from the prior study. Left lung is clear. Mediastinum/pulmonary vasculature: Heart size and pulmonary vasculature are normal. Bones/soft tissues: Normal. IMPRESSION: 1. New right upper lobe airspace opacity consistent with pneumonia. 2. Clear left lung. Report Dictated By: Catrachito Gonzalez at 05/22/2019 12:17 PM Report E-Signed By: Catrachito Gonzalez at 05/22/2019 12:19 PM WSN:[id number]
[2019-05-22] MEDS ORDERED: LORazepam 2 MG/ML VIAL IVP ONE (12:55)
[2019-05-22] MEDS ORDERED: cefTRIAXone(*) 1 GM VIAL 1 GM in NS(*) 0.9% 100 ML MINI-BAG 100 ML IVPB ONE (13:10)
--- NOTE | 2019-05-22 13:10 | EKG ---
FACILITY: [facility] - [place] PATIENT NAME: SULEMAN CORREA : [id number] MR: [id number] V: [id number] EXAM DATE: ORDERING PHYSICIAN: JOSE SPICER TECHNOLOGIST: DARRICK Test Reason : CP Blood Pressure : / mmHG Vent. Rate : 121 BPM Atrial Rate : 121 BPM P-R Int : 194 ms QRS Dur : 152 ms QT Int : 330 ms P-R-T Axes : 000 089 084 degrees QTc Int : 468 ms Sinus tachycardia When compared with ECG of 17-MAR-2019 18:26, No significant change was found Confirmed by Sav Stanton ([id number]) on 05/22/2019 7:30:14 PM Referred By: MINA Confirmed By:Sav Torre
[2019-05-22 14:22] VITALS: BP 110/85
[2019-05-22] MEDS ORDERED: ALBU8.5H INH (15:36)
[2019-05-22] MEDS ORDERED: METO25TA23 PO (15:36)
[2019-05-22] MEDS ORDERED: AZITHROMYCIN 250 MG TAB PO ONE (16:35)
[2019-05-22] MEDS ORDERED: ALBUTEROL 2.5 MG/3 ML NEB NEB PRN (16:35)
[2019-05-22] MEDS ORDERED: DOXYCYCLINE HYCL 100 MG TAB PO SCH (16:40)
[2019-05-22] MEDS: BUDESO/FORMOT 160/4.5 MCG 6 GM INH SCH (17:36)
[2019-05-22] MEDS ORDERED: FLUSH 10 ML SYR IVP PRN (17:40)
--- NOTE | 2019-05-22 17:48 | History & Physical ---
History of Present Illness Chief Complaint fatigue History of Present Illness 59M presented with fatigue. PMHx significant for a-fib. Reports felt unwell at work with generalized fatigue and presented to ER to be evaluated. Work up in ER demonstrated CXR with RUL consolidation, elevated WBC 16k. Patient denies any fever does report chills, fatigue, cough unchanged form baseline. CT did not show any consolidation in this area. Labs also showed NEHA and he was admitted for IV antibiotic and IV hydration. History Problems: (1) COPD (chronic obstructive pulmonary disease) Status: Chronic (2) Atrial flutter Status: Chronic (3) Atrial fibrillation Status: Chronic Home Meds Active Scripts Ropinirole Hcl (ROPINIROLE HCL) 0.25 Mg Tablet, 1-2 TAB PO DIRECTED, #90 TAB 1 Refill Take 1 tab 1-3 hours before bed for restless leg syndrome. If no improvemnet in 1 week may increase to 2 tabs Prov:CATHERINE CRESPO APRN-C 05/11/19 Diltiazem Hcl (DILTIAZEM ER) 180 Mg Capsule.er, 180 MG PO BID, #60 CAP 0 Refills Prov:DWAYNE NIEVES MD 02/08/19 Gabapentin (GABAPENTIN) 300 Mg Capsule, 1 CAP PO TID, #90 CAPSULE 0 Refills Prov:CATHERINE CRESPO APRN-C 02/02/19 Budesonide/Formoterol Fumarate (SYMBICORT 160-4.5 MCG INHALER) 10.2 Gm Inh, 1 PUFF INH BID, #60 INH 5 Refills Prov:CATHERINE CRESPO APRN-C 01/23/19 Reported Medications Albuterol Sulfate 90 Mcg/Act (PROAIR HFA 90 MCG/ACT) 8.5 Gm Hfa.aer.ad, 2 PUFF INH QID PRN for SHORTNESS OF BREATH 05/22/19 Metoprolol Succinate (METOPROLOL SUCCINATE) 25 Mg Tab.er.24h, 2 TAB PO QDAY 05/22/19 Amiodarone Hcl (AMIODARONE HCL) 200 Mg Tablet, 200 MG PO QDAY 03/17/19 Apixaban (ELIQUIS) 5 Mg Tablet, 5 MG PO DAILY 02/07/19 Discontinued Reported Medications Tiotropium [place] (SPIRIVA) 18 Mcg/Cap Inh, 1 CAP INH DAILY, INH 01/23/19 Discontinued Scripts [Work Note] No Conflict Check Prov:EPIFANIOCATHERINE LONG NORA GUERRERO-C 03/24/19 Triamcinolone Acetonide (Triamcinolone Acetonide) 55 Mcg [place], 2 SPRAY NA DAILY, #1 BOTTLE 5 Refills Prov:EPIFANIOMERCEDESCATHERINEQUITA GUERRERO-C 03/24/19 Albuterol Sulfate (PROVENTIL HFA) 6.7 Gm Inh, 2 PUFF INH QID PRN for SHORTNESS OF BREATH, #1 INH 5 Refills Prov:ZAKCATHERINE APRN-C 01/23/19 Metoprolol Succinate (TOPROL XL) 25 Mg Tab.er.24h, 1 TAB PO QDAY for 30 Days, #30 TAB 3 Refills Prov:CARLITO CANELA DO 01/17/19 Allergies: Coded Allergies: tetracycline (Verified Allergy, Intermediate, ITCHING, 05/22/19) naproxen (Verified Adverse Reaction, Mild, RESTLESSNESS, 05/22/19) Patient History: Heart disease Hx Smoking: Yes (DECEMBER 2018 QUIT, 1.5-2PPD) Smoking Status: Current: Every Day Smoker, Light Tobacco Smoker Exposure to Second Hand Smoke?: Yes When Quit Tobacco?: december 2018 Caffeine Intake: Coffee, Soda Caffeine/Cups Per Day: 1 CUP AM Hx Alcohol Use: No Hx Substance Use Disorder: No Social Drug Use: Never Review of Systems All Systems Reviewed/Normal: Yes, Except as Noted Constitutional: Chills; No Fever Respiratory: Cough; No Shortness of Breath Exam Vital Signs Vital Signs Date Time Temp Pulse Resp B/P (MAP) Pulse Ox O2 Delivery O2 Flow Rate FiO2 05/22/19 14:22 97.8 114 22 110/85 (93) 95 Nasal Cannula 2.0 General Appearance: Alert, Awake, No Acute Distress, Afebrile Neuro: No Gross deficits Cardiovascular: Other (irregularly irregular) Respiratory: Clear to Auscultation GI: Abd Soft and Non-Tender Extremities: Soft and Non Tender, Warm, Pulses, Perfused; No Edema Medical Decision Making Data Points Result Diagram: 05/22/19 1151 05/22/19 1151 Assessment and Plan Problems: (1) Community acquired pneumonia of right upper lobe of lung Status: Acute Assessment & Plan: CXR with RUL infiltrate. Cough is unchanged from baseline, afebrile, O2 saturation is slightly low. Patient on amiodarone which precludes fluoroquinolone, high risk QT prolongation with azithromycin, allergy to tetracycline included blistering of skin on hands and feet. Ceftriaxone in ER and given his clinical picture will monitor and not cover atypical organisms at this time. If not improving would need to use azithromycin and possibly stay in hospital for monitoring during therapy. Given atypical presentation a follow up CXR to document resolution will be very important. (2) NEHA (acute kidney injury) Status: Acute Assessment & Plan: Creatinine 2.0 on admission baseline appears to be 1.4. He was hypotensive on admission before IV fluids. Continue IV hydration. (3) Atrial fibrillation Status: Chronic Assessment & Plan: Rate reasonably well controlled, continue metoprolol succinate 25mg and amiodarone 200mg. He is scheduled to see cardiology to attempt second ablation. (4) COPD (chronic obstructive pulmonary disease) Status: Chronic Assessment & Plan: Continue Symbicort and albuterol. Venous Thromboembolism Antithrombotics Is Pt On Any Antithrombotics?: Yes Exam Sepsis Risk: No Definite Risk RIVAS SHEY SALVADOR DO May 22, 2019 17:48
[2019-05-22] MEDS: NS(*) 0.9% 1000 ML BAG 1,000 ML IV PRN (18:45)
[2019-05-22 19:18] VITALS: BP 108/82
[2019-05-22] MEDS ORDERED: APIXABAN 2.5 MG TABLET PO SCH (21:00)
[2019-05-22] MEDS ORDERED: METOPROLOL SUCC XL 25 MG TABCR PO SCH (21:00)
[2019-05-22] MEDS ORDERED: AMIODARONE 200 MG TAB PO SCH (21:00)
[2019-05-22] MEDS ORDERED: DILTIAZEM CD 180 MG CAPCR PO SCH (21:00)
[2019-05-22] MEDS: GABAPENTIN 300 MG CAP PO SCH (21:10)
[2019-05-23 03:25] VITALS: BP 124/94
[2019-05-23] MEDS: NS(*) 0.9% 1000 ML BAG 1,000 ML IV PRN (03:32)
[2019-05-23] MEDS: BUDESO/FORMOT 160/4.5 MCG 6 GM INH SCH (05:16)
[2019-05-23 08:43] VITALS: Ht 182.9 cm; Wt 83.0 kg
[2019-05-23] MEDS ORDERED: CEFDINIR 300 MG CAP PO SCH (09:00)
[2019-05-23] MEDS: GABAPENTIN 300 MG CAP PO SCH ×2 (09:06→13:53)
[2019-05-23] MEDS ORDERED: METOPROLOL TART 50 MG TAB PO ONE (10:35)
[2019-05-23 10:39] VITALS: BP 112/88
[2019-05-23] MEDS ORDERED: CEF300 PO (13:58)
--- NOTE | 2019-05-23 14:08 | Hospitalist Depart ---
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 CXR with RUL infiltrate. WBC elevated. Cough is unchanged from baseline, afebrile, O2 saturation is slightly low. He was given ceftriaxone in the ER and then started on Omnicef. He is feeling much better. He has been afebrile. He is on RA at the time of my exam and maintaining O2 saturations. He will go home on a course of Omnicef and needs to see his PCP to schedule a follow CXR in 6 weeks. (2) NEHA (acute kidney injury) Status: Acute Hospital Course & Plan: Creatinine 2.0 on admission baseline appears to be 1.4. He was hypotensive on admission before IV fluids, but had a normal lactate. After hydration, his BP has been stable and his creatinine is 1.4. (3) Atrial fibrillation Status: Chronic Hospital Course & Plan: He is in atrial flutter with heart rates in the 110- 120's. We have increased him back to Toprol 50mg a day to get better rate control. He is to continue the Amiodarone up until 3 weeks before cardiology to attempt second ablation. Continue Eliquis. (4) COPD (chronic obstructive pulmonary disease) Status: Chronic Hospital Course & Plan: Continue Symbicort and albuterol. Departure Weight (Pounds): 183 Weight (Ounces): 6.0 Result Diagram: 05/22/19 1151 05/23/19 1040 Item Value Date Time Neutrophils (%) (Auto) 77.8 % H 05/22/19 1151 Lymphocytes (%) (Auto) 14.2 % L 05/22/19 1151 Monocytes (%) (Auto) 6.2 % 05/22/19 1151 Eosinophils (%) (Auto) 1.2 % 05/22/19 1151 Basophils (%) (Auto) 0.6 % 05/22/19 1151 Nucleated RBC Relative Count (auto) 0.1 /100WBC 05/22/19 1151 Total Bilirubin 1.1 mg/dl 05/22/19 1151 Aspartate Amino Transf (AST/SGOT) 42 U/L H 05/22/19 1151 Alanine Aminotransferase (ALT/SGPT) 55 U/L 05/22/19 1151 Alkaline Phosphatase 122 U/L 05/22/19 1151 Troponin I < 0.012 ng/ml 05/22/19 1151 Creatinine 2.00 mg/dl H 05/22/19 1151 Creatinine 1.30 mg/dl H 05/23/19 1040 Lactate 1.6 mmol/L 05/22/19 1303 Magnesium Level 1.9 mg/dl 05/22/19 0000 Calcium Level 9.8 mg/dl 05/22/19 1151 Urine Blood Small 05/22/19 1323 Urine RBC 1 /HPF 05/22/19 1323 Urine WBC 1 /HPF 05/22/19 1323 Urine Squamous Epithelial Cells None /LPF 05/22/19 1323 Urine Bacteria Few /HPF 05/22/19 1323 Urine Mucus None /HPF 05/22/19 1323 Urine Opiates Screen Negative 05/22/19 1323 Urine Barbiturates Screen Negative 05/22/19 1323 Ur Tricyclic Antidepressants Screen Negative 05/22/19 1323 Urine Phencyclidine Screen Negative 05/22/19 1323 Urine Amphetamines Screen Negative 05/22/19 1323 Urine Benzodiazepines Screen Negative 05/22/19 1323 Urine Cocaine Screen Negative 05/22/19 1323 Urine Cannabinoids Screen Negative 05/22/19 1323 Imaging CXR - 1. New right upper lobe airspace opacity consistent with pneumonia. 2. Clear left lung. EKG Vent. Rate : 121 BPM Atrial Rate : 121 BPM P-R Int : 194 ms QRS Dur : 152 ms QT Int : 330 ms P-R-T Axes : 000 089 084 degrees QTc Int : 468 ms Sinus tachycardia When compared with ECG of 17-MAR-2019 18:26, No significant change was found ON MY READ IT IS ATRIAL FLUTTER Condition: Improved Discharge: Home Discharge Instructions Home Meds Active Scripts Cefdinir 300 Mg Cap (OMNICEF 300 MG CAP (OR EQUIV)) 300 Mg Cap, 300 MG PO BID, #18 CAP Prov:MOE PEREIRA MD 05/23/19 Ropinirole Hcl (ROPINIROLE HCL) 0.25 Mg Tablet, 1-2 TAB PO DIRECTED, #90 TAB 1 Refill Take 1 tab 1-3 hours before bed for restless leg syndrome. If no improvemnet in 1 week may increase to 2 tabs Prov:CATHERINE CRESPO APRN 05/11/19 Gabapentin (GABAPENTIN) 300 Mg Capsule, 1 CAP PO TID, #90 CAPSULE 0 Refills Prov:CATHERINE CRESPO APRN 02/02/19 Budesonide/Formoterol Fumarate (SYMBICORT 160-4.5 MCG INHALER) 10.2 Gm Inh, 1 PUFF INH BID, #60 INH 5 Refills Prov:CATHERINE CRESPO APRN 01/23/19 Reported Medications Albuterol Sulfate 90 Mcg/Act (PROAIR HFA 90 MCG/ACT) 8.5 Gm Hfa.aer.ad, 2 PUFF INH QID PRN for SHORTNESS OF BREATH 05/22/19 Metoprolol Succinate (METOPROLOL SUCCINATE) 25 Mg Tab.er.24h, 2 TAB PO QDAY 05/22/19 Amiodarone Hcl (AMIODARONE HCL) 200 Mg Tablet, 200 MG PO BID 03/17/19 Apixaban (ELIQUIS) 5 Mg Tablet, 5 MG PO DAILY 02/07/19 Discontinued Reported Medications Tiotropium [place] (SPIRIVA) 18 Mcg/Cap Inh, 1 CAP INH DAILY, INH 01/23/19 Discontinued Scripts Diltiazem Hcl (DILTIAZEM ER) 180 Mg Capsule.er, 180 MG PO BID, #60 CAP 0 Refills Prov:DWAYNE NIEVES MD 02/08/19 [Work Note] No Conflict Check Prov:CATHERINE CRESPO APRN 03/24/19 Triamcinolone Acetonide (Triamcinolone Acetonide) 55 Mcg [place], 2 SPRAY NA DAILY, #1 BOTTLE 5 Refills Prov:CATHERINE CRESPO APRN 03/24/19 Albuterol Sulfate (PROVENTIL HFA) 6.7 Gm Inh, 2 PUFF INH QID PRN for SHORTNESS OF BREATH, #1 INH 5 Refills Prov:CATHERINE CRESPO APRN 01/23/19 Metoprolol Succinate (TOPROL XL) 25 Mg Tab.er.24h, 1 TAB PO QDAY for 30 Days, #30 TAB 3 Refills Prov:CARLITO CANELA DO 01/17/19 Diet: Regular Activity: As Tolerated Special Instructions: Followup with your PCP in 1-2 weeks to check heart rate and pneumonia symptoms. Also, schedule a follow up CXR in about 6 weeks to look for resolution of the pneumonia. Followup with Cardiology as scheduled. Go to the ER for fevers, chills, worsening shortness of breath. Copies to: CATHERINE CRESPO APRN COLORER MACHINE-C; CAROL ANN MARADIAGA MD ; Venous Thromboembolism Antithrombotics Is Pt On Any Antithrombotics?: Yes MOE PEREIRA MD May 23, 2019 14:08
--- NOTE | 2019-05-23 14:48 | Medical Nutrition Therapy ---
Nutrition Anthropometrics Height (Inches): 72.00 Height (Calculated Centimeters: 182.223274 Weight (Pounds): 183 Weight (Calculated Kilograms): 83.178 Addi Nutrition Score: Adequate Addi Nutrition Risk Score: 22 Dietary Referral Nutrition Risk Factors: Nutrition Risk Comment: Physical Findings Physical Appearance: BMI at 24.9 Skin Appearance Skin Appearance: Edema Edema Location Modifier: Edema Location: Type of Edema: Degree of Edema: Gastrointestinal Symptoms GI Symtoms: Tube Present: Bowel Sounds: Recent Bowel Pattern: Stool Characteristics: Nutritional Diagnosis Nutritional Risk Acuity 1: Acute/ES Renal Nutritional Risk Acuity 3: COPD Unstable Past Medical History: Hx of COPD, carpal tunnel, and smoker. Nutritional Acuity: 1-High Nutrition Problem/Etiology/Sym: Altered lab values R/T NEHA AEB high creatinine of 2.0. Energy Requirement: 1693 (MSJ) Protein Requirement: 66 (.8g/kg/day) Fluid Requirement: 2075 (25ml/kg/day) Nutrition Intervention: Cont diet as ordered Nutrition Monitoring & Eval Nutrition Goals: Eat 75-100% Meal RD Patient Assessment Time: [address] Assessment Type: RD Assessment Patient Nutrition Acuity: 1-High Follow Up Date: May 25, 2019 Nutritional Comment: 05/23/19: Pt admitted for pneumonia,ROBIN, COPD, atrial fib. Laboratory values show high WBC (16), low RBC (3.85), high percentage of neut (77.8), high creatinine (2), and high AST (42). Pt ROSAURA, but no intake reported at this time. Will continue to monitor laboratory values, weight, and intake.-KELLY XAVIER May 23, 2019 12:01
[2019-05-23] MEDS ORDERED: AZITHROMYCIN 250 MG TAB PO ONE (16:35)
[2019-05-30] MEDS ORDERED: Work Note (10:01)
== END 2019-05-23 14:08 | disposition home or self-care (01) ==
LOC: ER 11:49 → INTOOBSV 13:54 → MED 13:54
PROVIDERS: ADMIT Internal Medicine; ATTEND Internal Medicine
DX: J18.9 Pneumonia, unspecified organism (principal); N17.9 Acute kidney failure, unspecified; R00.0 Tachycardia, unspecified; J44.9 Chronic obstructive pulmonary disease, unspecified; I48.2 Chronic atrial fibrillation; Z79.01 Long term (current) use of anticoagulants
CPT/HCPCS: 36415; 71045; 80305; 81001; 83605; 83735; 84443; 84484; 85025; 87040; 93005; 94640; 96365; 96375; 99284; G0378; J0696; J2060; J7030; 82040; 82247; 82310; 82374; 82435; 82565; 82947; 84075; 84132; 84155; 84295; 84450; 84460; 84520

== ENCOUNTER 2019-05-26 13:41 | Inpatient (IN) | payer BC ==
[2019-05-23 08:43] VITALS: Ht 182.9 cm; Wt 82.1 kg
[~2019-05-26] VITALS: Ht 182.9 cm; Wt 82.1 kg
[~2019-05-26 13:41] MED LIST changes: +ALBU8.5H INH; +CEF300 PO; +METO25TA23 PO
--- NOTE | 2019-05-26 13:43 | ER Report ---
History and Physical Time Seen By MD: 13:38 HPI/ROS CHIEF COMPLAINT: Shortness of breath HISTORY OF PRESENT ILLNESS: Patient is a 59-year-old male here with complaints of shortness of breath, palpitations at approximately 4:00 this morning which had resolved until he had a repeat episode starting approximately 10:00 while at work. Patient did have a recent diagnosis of pneumonia with admission on May 22 currently taking antimicrobial therapy. Patient was found to be sinus tachycardic in the 120s at time of arrival. Patient is afebrile, hemodynamically stable at time of evaluation. REVIEW OF SYSTEMS: Constitutional: No fever, no chills. Eyes: No discharge. ENT: No sore throat. Cardiovascular: No chest pain, + palpitations. Respiratory: No cough, + shortness of breath. Gastrointestinal: No abdominal pain, no vomiting. Genitourinary: No hematuria. Musculoskeletal: No back pain. Skin: No rashes. Neurological: No headache. Allergies: Coded Allergies: tetracycline (Verified Allergy, Intermediate, ITCHING, 05/22/19) naproxen (Verified Adverse Reaction, Mild, RESTLESSNESS, 05/22/19) Home Meds Active Scripts Cefdinir 300 Mg Cap (OMNICEF 300 MG CAP (OR EQUIV)) 300 Mg Cap, 300 MG PO BID, #18 CAP Prov:MOE PEREIRA MD 05/23/19 Ropinirole Hcl (ROPINIROLE HCL) 0.25 Mg Tablet, 1-2 TAB PO DIRECTED, #90 TAB 1 Refill Take 1 tab 1-3 hours before bed for restless leg syndrome. If no improvemnet in 1 week may increase to 2 tabs Prov:CATHERINE CRESPO APRN-C 05/11/19 Gabapentin (GABAPENTIN) 300 Mg Capsule, 1 CAP PO TID, #90 CAPSULE 0 Refills Prov:CATHERINE CRESPO APRNP-C 02/02/19 Budesonide/Formoterol Fumarate (SYMBICORT 160-4.5 MCG INHALER) 10.2 Gm Inh, 1 PUFF INH BID, #60 INH 5 Refills Prov:CATHERINE CRESPO APRN WAREHOUSE CLERK-C 01/23/19 Reported Medications Albuterol Sulfate 90 Mcg/Act (PROAIR HFA 90 MCG/ACT) 8.5 Gm Hfa.aer.ad, 2 PUFF INH QID PRN for SHORTNESS OF BREATH 05/22/19 Metoprolol Succinate (METOPROLOL SUCCINATE) 25 Mg Tab.er.24h, 2 TAB PO QDAY 05/22/19 Amiodarone Hcl (AMIODARONE HCL) 200 Mg Tablet, 200 MG PO BID 03/17/19 Apixaban (ELIQUIS) 5 Mg Tablet, 5 MG PO DAILY 02/07/19 Discontinued Reported Medications Tiotropium [place] (SPIRIVA) 18 Mcg/Cap Inh, 1 CAP INH DAILY, INH 01/23/19 Discontinued Scripts Diltiazem Hcl (DILTIAZEM ER) 180 Mg Capsule.er, 180 MG PO BID, #60 CAP 0 Refills Prov:DWAYNE NIEVES MD 02/08/19 [Work Note] No Conflict Check Prov:CATHERINE CRESPO APRN-[place] 03/24/19 Triamcinolone Acetonide (Triamcinolone Acetonide) 55 Mcg [place], 2 SPRAY NA DAILY, #1 BOTTLE 5 Refills Prov:CATHERINE CRESPO APRN-[place] 03/24/19 Albuterol Sulfate (PROVENTIL HFA) 6.7 Gm Inh, 2 PUFF INH QID PRN for SHORTNESS OF BREATH, #1 INH 5 Refills Prov:CATHERINE CRESPO APRN-[place] 01/23/19 Metoprolol Succinate (TOPROL XL) 25 Mg Tab.er.24h, 1 TAB PO QDAY for 30 Days, #30 TAB 3 Refills Prov:CARLITO CANELA DO 01/17/19 Hx Smoking: Yes (DECEMBER 2018 QUIT, 1.5-2PPD) Smoking Status: Current: Every Day Smoker, Light Tobacco Smoker Exposure to Second Hand Smoke?: Yes Hx Substance Use Disorder: No Hx Alcohol Use: No Constitutional Vital Sign - Last 24 Hours 05/26/19 13:45 Temp 98.2 Pulse 116 Resp 20 B/P (MAP) 103/74 Pulse Ox 91 O2 Delivery Room Air Physical Exam General Appearance: The patient is alert, has no immediate need for airway protection and no signs of toxicity. Anxious appearing Eyes: Pupils equal and round no pallor or injection. ENT, Mouth: Mucous membranes are moist. Respiratory: There are no retractions, lungs are clear to auscultation. Cardiovascular: Regular, rapid rhythm Gastrointestinal: Abdomen is soft and non tender, no masses, bowel sounds normal. Neurological: No focal neurological deficit Skin: Warm and dry, no rashes. Musculoskeletal: Neck is supple non tender. Extremities are nontender, nonswollen and have full range of motion. DIFFERENTIAL DIAGNOSIS: After history and physical exam differential diagnosis was considered for shortness of breath including but not limited to pulmonary infectious process, COPD, asthma, pulmonary embolus and congestive heart failure. Medical Decision Making Data Points Result Diagram: 05/26/19 1344 05/26/19 1344 Laboratory Hematology Test 05/26/19 13:44 White Blood Count 19.9 k/uL (4.5-11.0) H Red Blood Count 3.53 M/uL (4.00-5.60) L Hemoglobin 11.8 g/dL (14.0-18.0) L Hematocrit 36.5 % (42.0-52.0) L Mean Corpuscular Volume 103.4 fL (80.0-96.0) H Mean Corpuscular Hemoglobin 33.5 pg (26.0-33.0) H Mean Corpuscular Hemoglobin Concent 32.4 g/dL (32.0-36.0) Red Cell Distribution Width 13.9 % (11.5-14.5) Platelet Count 380 K/uL (150-450) Mean Platelet Volume 6.9 fL (7.2-11.1) L Neutrophils (%) (Auto) 82.6 % (39.4-72.5) H Lymphocytes (%) (Auto) 8.2 % (17.6-49.6) L Monocytes (%) (Auto) 8.6 % (4.1-12.4) Eosinophils (%) (Auto) 0.3 % (0.4-6.7) L Basophils (%) (Auto) 0.3 % (0.3-1.4) Nucleated RBC Relative Count (auto) 0.0 /100WBC Neutrophils # (Auto) 16.5 K/uL (2.0-7.4) H Lymphocytes # (Auto) 1.6 K/uL (1.3-3.6) Monocytes # (Auto) 1.7 K/uL (0.3-1.0) H Eosinophils # (Auto) 0.1 K/uL (0.0-0.5) Basophils # (Auto) 0.1 K/uL (0.0-0.1) Nucleated RBC Absolute Count (auto) 0.00 K/uL Chemistry Test 05/26/19 13:44 Sodium Level 139 mmol/L (137-145) Potassium Level 5.0 mmol/L (3.5-5.0) Chloride Level 102 mmol/L (98-107) Carbon Dioxide Level 22 mmol/L (22-30) Blood Urea Nitrogen 23 mg/dl (9-21) Creatinine 1.90 mg/dl (0.66-1.25) Glomerular Filtration Rate Calc 36.6 Random Glucose 94 mg/dl (75-110) Calcium Level 9.6 mg/dl (8.4-10.2) Total Bilirubin 1.4 mg/dl (0.2-1.3) Aspartate Amino Transf (AST/SGOT) 40 U/L (0-35) Alanine Aminotransferase (ALT/SGPT) 50 U/L (0-56) Alkaline Phosphatase 111 U/L (0-126) Troponin I < 0.012 ng/ml B-Type Natriuretic Peptide 553 pg/ml (0-100) Total Protein 8.4 g/dl (6.3-8.2) Albumin 4.2 g/dl (3.5-5.0) Lipase 116 U/L (23-300) Coagulation Test 05/26/19 13:44 Prothrombin Time 15.3 seconds (12.0-14.4) Prothromb Time International Ratio 1.20 Activated Partial Thromboplast Time 44 seconds (23-35) EKG/Imaging EKG Interpretation PATIENT NAME: SIMONE CORREA : [id number] MR: [id number] V: [id number] EXAM DATE: ORDERING PHYSICIAN: CARLITO CANELA TECHNOLOGIST: MARGARET Test Reason : SOB Blood Pressure : / mmHG Vent. Rate : 123 BPM Atrial Rate : 123 BPM P-R Int : 150 ms QRS Dur : 082 ms QT Int : 340 ms P-R-T Axes : 000 088 -22 degrees QTc Int : 486 ms Sinus tachycardia with fusion complexes Marked ST abnormality, possible inferior subendocardial injury Abnormal ECG When compared with ECG of 22-MAY-2019 11:42, fusion complexes are now present QRS duration has decreased ST more depressed in Inferior leads ST more depressed in Anterolateral leads T wave inversion now evident in Inferior leads Referred By: ROLA Confirmed By: [id number] Imaging PATIENT NAME: Simone Correa : 1960 MR: [id number] V: [id number] EXAM DATE: [id number] ORDERING PHYSICIAN: CARLITO CANELA TECHNOLOGIST: Location: [facility] - [place] Patient: Simone Correa : 1960 Visit/Account:[id number] Date of Sevice: 05/26/2019 CHEST SINGLE AP Indication: Chest Pain Comparison: Chest x-ray 09/21/2019. Findings: Lungs: Patchy airspace opacity right upper lobe is slightly improved from the prior study. Chronic appearing interstitial changes left lung are stable. Mediastinum/pulmonary vasculature: Heart size and pulmonary vasculature are normal. Bones/soft tissues: Normal. IMPRESSION: 1. Patchy airspace opacity right upper lobe, slightly improved from 05/22/2019. This likely represents improving pneumonia. 2. Chronic interstitial changes both lungs, stable. ED Course/Re-evaluation ED Course Patient is a 59-year-old male here with complaints of shortness breath, pal pitations found in sinus tachycardia in the 120s. Patient had been admitted on May 22 for pneumonia with a similar presentation. He had been discharged on Omnicef because he currently takes amiodarone and other antimicrobials cross- react with this medication. Patient's white blood cell count increased to 19,000 compared to 16,000 on the , creatinine today was 1.9 compared to 1.3 at time of discharge. It is likely that the situation is that he failed outpatient antimicrobial treatment. Patient was given ceftriaxone in the emergency department, 2 L normal saline without much improvement. I discussed the patient with Dr. Gibson still accepted the patient to the hospitalist service. Patient will likely need to be closely observed due to concurrent amiodarone use and need for broaden antimicrobial coverage. Decision to Disposition Date: May 26, 2019 Decision to Disposition Time: 15:55 Depart Departure Latest Vital Signs Vital Signs Date Time Temp Pulse Resp B/P (MAP) Pulse Ox O2 Delivery O2 Flow Rate FiO2 05/26/19 13:45 98.2 116 20 103/74 91 Room Air Impression: Primary Impression: NEHA (acute kidney injury) Additional Impressions: Sinus tachycardia by electrocardiogram Leukocytosis Community acquired pneumonia of right upper lobe of lung Condition: Improved Disposition: Admitted from ER Problem Qualifiers CARLITO CANELA DO May 26, 2019 13:43
[2019-05-26] MEDS ORDERED: NS(*) 0.9% 1000 ML BAG 1,000 ML IV ONE ×2 (13:49→14:00)
--- NOTE | 2019-05-26 14:02 | EKG ---
FACILITY: [facility] PATIENT NAME: SULEMAN CORREA : [id number] MR: [id number] V: [id number] EXAM DATE: ORDERING PHYSICIAN: CARLITO CANELA TECHNOLOGIST: MARGARET Test Reason : SOB Blood Pressure : / mmHG Vent. Rate : 123 BPM Atrial Rate : 123 BPM P-R Int : 150 ms QRS Dur : 082 ms QT Int : 340 ms P-R-T Axes : 000 088 -22 degrees QTc Int : 486 ms Sinus tachycardia with fusion complexes Abnormal ECG When compared with ECG of 22-MAY-2019 11:42, fusion complexes are now present Otherwise No significant change was found Confirmed by Sav Stanton ([id number]) on 05/26/2019 9:03:48 PM Referred By: ROLA Confirmed By:Sav Torre
[2019-05-26 14:06] LABS: PLATELET COUNT, AUTOMATED 380 K/uL (150-450)
[2019-05-26 14:14] LABS: INR 1.2
--- NOTE | 2019-05-26 14:38 | RADIOLOGY IMAGING REPORT ---
FAC[place] [facility] [place] PATIENT NAME: Simone Wade : 1960 MR: [id number] V: [id number] EXAM DATE: ORDERING PHYSICIAN: CARLITO CANELA TECHNOLOGIST: Location: [facility] Patient: Simone Wade : 1960 Visit/Account:[id number] Date of Sevice: 05/26/2019 CHEST SINGLE AP Indication: Chest Pain Comparison: Chest x-ray 09/21/2019. Findings: Lungs: Patchy airspace opacity right upper lobe is slightly improved from the prior study. Chronic ap pearing interstitial changes left lung are stable. Mediastinum/pulmonary vasculature: Heart size and pulmonary vasculature are normal. Bones/soft tissues: Normal. IMPRESSION: 1. Patchy airspace opacity right upper lobe, slightly improved from 05/22/2019. This likely represents improving pneumonia. 2. Chronic interstitial changes both lungs, stable. Report Dictated By: Catrachito Gonzalez at 05/26/2019 2:30 PM Report E-Signed By: Catrachito Gonzalez at 05/26/2019 2:31 PM WSN:[id number]
[2019-05-26] MEDS ORDERED: cefTRIAXone(*) 1 GM VIAL 1 GM in WATER STERILE(*) 10 ML VIAL 10 ML IVP ONE (15:50)
[2019-05-26 16:46] VITALS: BP 126/89
[2019-05-26] MEDS ORDERED: BUDE10.2 INH (17:06)
[2019-05-26] MEDS ORDERED: GABA-549 PO (17:06)
[2019-05-26] MEDS ORDERED: ROPI0.2530 PO (17:06)
[2019-05-26] MEDS ORDERED: FLUSH 10 ML SYR IVP PRN (17:40)
[2019-05-26] MEDS ORDERED: LR(*) 1000 ML BAG 1,000 ML IV PRN ×2 (17:40→19:30)
[2019-05-26] MEDS ORDERED: ALBUTEROL 2.5 MG/3 ML NEB NEB PRN (17:40)
[2019-05-26] MEDS: AMPICILLIN/SULBACT (*) 3 GM VL 3 GM in NS(*) 0.9% 100 ML MINI-BAG 100 ML IVPB SCH ×2 (18:13→23:57)
[2019-05-26] MEDS: BUDESO/FORMOT 160/4.5 MCG 6 GM INH SCH (19:06)
[2019-05-26 19:33] VITALS: BP 111/74
--- NOTE | 2019-05-26 20:40 | History & Physical ---
History of Present Illness Chief Complaint fatigue History of Present Illness 59M presented with continued fatigue. PMHx significant for afib, tachycardia, COPD. He was recently admitted and discharged after diagnosis with RUL pneumonia, discharged on cefdinir only due to allergy and medication interactions. Reports he was feeling fair but acutely worsened during the night so sought evaluation. He remains stable on RA, he is still tachycardic which has been his baseline since , continues to have non-productive cough, afebrile. CXR shows slight improvement in infiltrate but WBC are increased to 20k and creatinine is again elevated to 2. Admitted for further evaluation and treatment. History Problems: (1) Atrial fibrillation Status: Chronic (2) COPD (chronic obstructive pulmonary disease) Status: Chronic Home Meds Active Scripts Cefdinir 300 Mg Cap (OMNICEF 300 MG CAP (OR EQUIV)) 300 Mg Cap, 300 MG PO BID, #18 CAP Prov:MOE PEREIRA MD 05/23/19 Reported Medications Budesonide/Formoterol Fumarate (SYMBICORT 160-4.5 MCG INHALER) 10.2 Gm Inh, 2 PUFF INH BID, INH 05/26/19 Ropinirole Hcl (ROPINIROLE HCL) 0.25 Mg Tablet, 0.75 MG PO HS 05/26/19 Gabapentin (GABAPENTIN) 300 Mg Capsule, 300 MG PO BID, CAPSULE 05/26/19 Albuterol Sulfate 90 Mcg/Act (PROAIR HFA 90 MCG/ACT) 8.5 Gm Hfa.aer.ad, 2 PUFF INH QID PRN for SHORTNESS OF BREATH 05/22/19 Metoprolol Succinate (METOPROLOL SUCCINATE) 25 Mg Tab.er.24h, 1 TAB PO DAILY 05/22/19 Amiodarone Hcl (AMIODARONE HCL) 200 Mg Tablet, 200 MG PO HS 03/17/19 Apixaban (ELIQUIS) 5 Mg Tablet, 5 MG PO BID 02/07/19 Discontinued Reported Medications Tiotropium [place] (SPIRIVA) 18 Mcg/Cap Inh, 1 CAP INH DAILY, INH 01/23/19 Discontinued Scripts Ropinirole Hcl (ROPINIROLE HCL) 0.25 Mg Tablet, 1-2 TAB PO DIRECTED, #90 TAB 1 Refill Take 1 tab 1-3 hours before bed for restless leg syndrome. If no improvemnet in 1 week may increase to 2 tabs Prov:CATHERINE CRESPO APRN 05/11/19 Gabapentin (GABAPENTIN) 300 Mg Capsule, 1 CAP PO TID, #90 CAPSULE 0 Refills Prov:CATHERINE CRESPO APRN 02/02/19 Budesonide/Formoterol Fumarate (SYMBICORT 160-4.5 MCG INHALER) 10.2 Gm Inh, 1 PUFF INH BID, #60 INH 5 Refills Prov:CATHERINE CRESPO APRN 01/23/19 Diltiazem Hcl (DILTIAZEM ER) 180 Mg Capsule.er, 180 MG PO BID, #60 CAP 0 Refills Prov:DWAYNE NIEVES MD 02/08/19 [Work Note] No Conflict Check Prov:CATHERINE CRESPO APRN 03/24/19 Triamcinolone Acetonide (Triamcinolone Acetonide) 55 Mcg [place], 2 SPRAY NA DAILY, #1 BOTTLE 5 Refills Prov:CATHERINE CRESPO APRN 03/24/19 Albuterol Sulfate (PROVENTIL HFA) 6.7 Gm Inh, 2 PUFF INH QID PRN for SHORTNESS OF BREATH, #1 INH 5 Refills Prov:CATHERINE CRESPO APRN 01/23/19 Metoprolol Succinate (TOPROL XL) 25 Mg Tab.er.24h, 1 TAB PO QDAY for 30 Days, #30 TAB 3 Refills Prov:CARLITO CANELA DO 01/17/19 Allergies: Coded Allergies: tetracycline (Verified Allergy, Intermediate, ITCHING, 05/22/19) naproxen (Verified Adverse Reaction, Mild, RESTLESSNESS, 05/22/19) Patient History: Heart disease Hx Smoking: Yes (DECEMBER 2018 QUIT, 1.5-2PPD) Smoking Status: Current: Every Day Smoker, Light Tobacco Smoker Exposure to Second Hand Smoke?: Yes Caffeine Intake: Coffee, Soda Caffeine/Cups Per Day: 1 CUP AM Hx Alcohol Use: No Hx Substance Use Disorder: No Social Drug Use: Never Review of Systems All Systems Reviewed/Normal: Yes, Except as Noted Constitutional: Other (fatigue); No Fever, No Weight Loss, No Chills, No Night Sweats Cardiovascular: Other (tachycardia); No Chest Pain Respiratory: No Shortness of Breath, No Cough, No Wheezing Gastrointestinal: No Nausea, No Vomiting Exam Vital Signs Vital Signs Date Time Temp Pulse Resp B/P (MAP) Pulse Ox O2 Delivery O2 Flow Rate FiO2 05/26/19 19:46 85 05/26/19 19:34 Room Air 05/26/19 19:33 98.2 117 14 111/74 (86) General Appearance: Alert, Awake, No Acute Distress, Afebrile Neuro: No Gross deficits Cardiovascular: Other (tachycaric) Respiratory: No Respiratory Distress, Clear to Auscultation GI: Abd Soft and Non-Tender Musculoskeletal: No Weakness/Pain Extremities: Soft and Non Tender, Warm, Pulses, Perfused; No Edema Medical Decision Making Data Points Result Diagram: 05/26/19 1344 05/26/19 1344 EKG / Imaging Monitor Interpretation: Sinus Tachycardia Assessment and Plan Problems: (1) Community acquired pneumonia of right upper lobe of lung Status: Acute Assessment & Plan: Clinically no change from prior, lab values are worse. Still can not us fluoroquinolone or doxycycline. Azithromycin would be high risk with amiodarone and he would need monitoring of EKG throughout therapy. He does not want to be hospitalized for 5 days to complete therapy. Will Change to Unasyn but if WBC remains elevated would likely need to consider azithromycin for atypical coverage and extended hospitalization. (2) COPD (chronic obstructive pulmonary disease) Status: Chronic Assessment & Plan: On RA at baseline, he is on albuterol PRN and Symbicort (3) Atrial fibrillation Status: Chronic Assessment & Plan: Will increase metoprolol succinate from 25 to 50mg to try a nd get improved rate control. Continue amiodarone, continue Eliquis. (4) NEHA (acute kidney injury) Status: Acute Assessment & Plan: Unclear etiology as he is normotensive. Received 2L NS in ER. Urine sodium and creatinine pending but collected after hydration. May consider renal US if not significantly improved. Venous Thromboembolism Antithrombotics Is Pt On Any Antithrombotics?: Yes Exam Sepsis Risk: Sepsis Risk SHEY HOUSE DO May 26, 2019 20:40
[2019-05-26] MEDS: APIXABAN 2.5 MG TABLET PO SCH (21:07)
[2019-05-26] MEDS: AMIODARONE 200 MG TAB PO SCH (21:07)
[2019-05-26] MEDS: GABAPENTIN 300 MG CAP PO SCH (21:07)
[2019-05-27] VITALS: BP 108/72
[2019-05-27] MEDS: AMPICILLIN/SULBACT (*) 3 GM VL 3 GM in NS(*) 0.9% 100 ML MINI-BAG 100 ML IVPB SCH ×3 (06:01→17:56)
[2019-05-27] MEDS: BUDESO/FORMOT 160/4.5 MCG 6 GM INH SCH ×2 (06:14→17:19)
[2019-05-27 06:37] LABS: PLATELET COUNT, AUTOMATED 328 K/uL (150-450)
[2019-05-27 07:45] VITALS: BP 100/72
[2019-05-27 09:24] VITALS: BP 110/68
[2019-05-27] MEDS: APIXABAN 2.5 MG TABLET PO SCH ×2 (09:25→21:30)
[2019-05-27] MEDS: GABAPENTIN 300 MG CAP PO SCH ×2 (09:25→21:30)
[2019-05-27] MEDS: METOPROLOL SUCC XL 50 MG TABCR 50 MG TAB.ER.24H PO SCH (09:25)
--- NOTE | 2019-05-27 10:03 | Hospitalist Progress Note ---
Subjective Progress Notes Subjective He was admitted with pneumonia. He reports much improvement in symptoms overnight. Patient Complains of: Cardiovascular: No: Chest Pain Respiratory: Cough; No: Shortness of Breath Physical Exam Vital Signs Date Time Temp Pulse Resp B/P (MAP) Pulse Ox O2 Delivery O2 Flow Rate FiO2 05/27/19 09:24 124 110/68 (82) 05/27/19 07:52 93 Nasal Cannula 1.5 05/27/19 07:45 98.4 17 Intake and Output 05/27/19 07:04 Intake Total 2503 ml Balance 2503 ml Intake Oral 400 ml IV Total 2103 ml # Voids 5 # Bowel Movements 1 General Appearance: Alert, Awake, No Acute Distress, Afebrile Neuro: No Gross deficits Cardiovascular: Regular Rate and Rhythm Respiratory: No Respiratory Distress, Clear to Auscultation GI: Soft and Non-Tender Psych: Alert & Oriented X3, Appropriate Mood & Affect Result Diagram: 05/27/1929 05/27/19 05 Monitor Interpretation: Sinus Tachycardia Assessment and Plan Problems: (1) Community acquired pneumonia of right upper lobe of lung Status: Acute Assessment & Plan: Clinically no change from prior, lab values are worse. Still can not us fluoroquinolone or doxycycline. Azithromycin would be high risk with amiodarone and he would need monitoring of EKG throughout therapy. He does not want to be hospitalized for 5 days to complete therapy. Will Change to Unasyn. WBC trending downward. Continue to monitor. (2) COPD (chronic obstructive pulmonary disease) Status: Chronic Assessment & Plan: On RA at baseline, he is on albuterol PRN and Symbicort (3) Atrial fibrillation Status: Chronic Assessment & Plan: Will increase metoprolol succinate from 25 to 50mg to try and get improved rate control. Continue amiodarone, continue Eliquis. Will place on Telemetry. (4) NEHA (acute kidney injury) Status: Acute Assessment & Plan: Unclear etiology as he is normotensive. Received 2L NS in ER. Urine sodium and creatinine collected after hydration. Improving with IV hydration. Will saline lock and recheck in the morning. Exam Sepsis Risk: Sepsis Risk KAR HANSON May 27, 2019 10:03
[2019-05-27 11:53] VITALS: BP 110/78
[2019-05-27] MEDS: AMIODARONE 200 MG TAB PO SCH (21:30)
[2019-05-27 21:32] VITALS: BP 104/78
[2019-05-28] MEDS: AMPICILLIN/SULBACT (*) 3 GM VL 3 GM in NS(*) 0.9% 100 ML MINI-BAG 100 ML IVPB SCH ×2 (00:15→06:12)
[2019-05-28 02:52] VITALS: BP 103/79
[2019-05-28] MEDS: BUDESO/FORMOT 160/4.5 MCG 6 GM INH SCH (05:55)
[2019-05-28 06:32] LABS: PLATELET COUNT, AUTOMATED 347 K/uL (150-450)
[2019-05-28 08:03] VITALS: BP 90/74
[2019-05-28] MEDS ORDERED: DOXY-179 PO (09:30)
[2019-05-28] MEDS ORDERED: METO50TA19 PO (09:30)
[2019-05-28] MEDS ORDERED: AMOX-559 PO (09:37)
[2019-05-28] MEDS: METOPROLOL SUCC XL 50 MG TABCR 50 MG TAB.ER.24H PO SCH (09:40)
[2019-05-28] MEDS: APIXABAN 2.5 MG TABLET PO SCH (09:40)
[2019-05-28] MEDS: GABAPENTIN 300 MG CAP PO SCH (09:40)
--- NOTE | 2019-05-28 09:43 | Hospitalist Depart ---
Discharge Summary Reason for Hosp/Final Diag: (1) Community acquired pneumonia of right upper lobe of lung Status: Acute Hospital Course & Plan: Clinically no change from prior admission, lab values worse upon admission from prior visit. Still can not us fluoroquinolone or doxycycline. Azithromycin would be high risk with amiodarone and he would need monitoring of EKG throughout therapy. He does not want to be hospitalized for 5 days to complete therapy and prefers to go home today. He was placed on Unasyn and had much improvement in symptoms. WBC trending downward. He will follow up with PCP in one week. He will also follow up with pulmonology. He will use oxygen at nighttime or when sleeping only. (2) COPD (chronic obstructive pulmonary disease) Status: Chronic Hospital Course & Plan: On RA at baseline, he is on albuterol PRN and Symbicort . Following with pulmonology. (3) Atrial fibrillation Status: Chronic Hospital Course & Plan: Will increase metoprolol succinate from 25 to 50mg to try and get improved rate control. Continue amiodarone, continue Eliquis. He was placed on Telemetry throughout admission. His rates averaged 110-120. He plans to have ablation soon. (4) NEHA (acute kidney injury) Status: Acute Hospital Course & Plan: Unclear etiology as he is normotensive. Received 2L NS in ER prior to admission. Urine sodium and creatinine collected after hydration. Improved with IV hydration. Creatinine now 1.1. Departure Latest Vital Signs Vital Signs 05/28/19 08:03 Temp 98.1 Pulse 116 Resp 14 B/P (MAP) 90/74 (79) Pulse Ox 93 O2 Delivery Nasal Cannula O2 Flow Rate 2.0 Weight (Pounds): 181 Weight (Ounces): 6.0 Result Diagram: 05/28/1934 05/28/19533 Condition: Improved Discharge: Home, Self Care Discharge Instructions Home Meds Active Scripts Doxycycline Hyclate (DOXYCYCLINE HYCLATE) 100 Mg Tablet, 100 MG PO BID for 7 Days, #14 TAB Prov:KAR HANSON 05/28/19 Metoprolol Succinate (METOPROLOL SUCCINATE) 50 Mg Tab.er.24h, 50 MG PO QDAY, #30 TAB Prov:KAR HANSON 05/28/19 Cefdinir 300 Mg Cap (OMNICEF 300 MG CAP (OR EQUIV)) 300 Mg Cap, 300 MG PO BID, #18 CAP Prov:MOE PEREIRA MD 05/23/19 Reported Medications Budesonide/Formoterol Fumarate (SYMBICORT 160-4.5 MCG INHALER) 10.2 Gm Inh, 2 PUFF INH BID, INH 05/26/19 Ropinirole Hcl (ROPINIROLE HCL) 0.25 Mg Tablet, 0.75 MG PO HS 05/26/19 Gabapentin (GABAPENTIN) 300 Mg Capsule, 300 MG PO BID, CAPSULE 05/26/19 Albuterol Sulfate 90 Mcg/Act (PROAIR HFA 90 MCG/ACT) 8.5 Gm Hfa.aer.ad, 2 PUFF INH QID PRN for SHORTNESS OF BREATH 05/22/19 Amiodarone Hcl (AMIODARONE HCL) 200 Mg Tablet, 200 MG PO HS 03/17/19 Apixaban (ELIQUIS) 5 Mg Tablet, 5 MG PO BID 02/07/19 Discontinued Reported Medications Metoprolol Succinate (METOPROLOL SUCCINATE) 25 Mg Tab.er.24h, 1 TAB PO DAILY 05/22/[address] (SPIRIVA) 18 Mcg/Cap Inh, 1 CAP INH DAILY, INH 01/23/19 Discontinued Scripts Ropinirole Hcl (ROPINIROLE HCL) 0.25 Mg Tablet, 1-2 TAB PO DIRECTED, #90 TAB 1 Refill Take 1 tab 1-3 hours before bed for restless leg syndrome. If no improvemnet in 1 week may increase to 2 tabs Prov:CATHERINE CRESPO APRN 05/11/19 Gabapentin (GABAPENTIN) 300 Mg Capsule, 1 CAP PO TID, #90 CAPSULE 0 Refills Prov:CATHERINE CRESPO APRN 02/02/19 Budesonide/Formoterol Fumarate (SYMBICORT 160-4.5 MCG INHALER) 10.2 Gm Inh, 1 PUFF INH BID, #60 INH 5 Refills Prov:CATHERINE CRESPO APRN 01/23/19 Diltiazem Hcl (DILTIAZEM ER) 180 Mg Capsule.er, 180 MG PO BID, #60 CAP 0 Refills Prov:DWAYNE NIEVES MD 02/08/19 [Work Note] No Conflict Check Prov:CATHERINE CRESPO APRN 03/24/19 Triamcinolone Acetonide (Triamcinolone Acetonide) 55 Mcg [place], 2 SPRAY NA DAILY, #1 BOTTLE 5 Refills Prov:CATHERINE CRESPO APRN-C 03/24/19 Albuterol Sulfate (PROVENTIL HFA) 6.7 Gm Inh, 2 PUFF INH QID PRN for SHORTNESS OF BREATH, #1 INH 5 Refills Prov:CATHERINE CRESPO APRN-C 01/23/19 Metoprolol Succinate (TOPROL XL) 25 Mg Tab.er.24h, 1 TAB PO QDAY for 30 Days, #30 TAB 3 Refills Prov:CARLITO CANELA DO 01/17/19 Diet: Regular Activity: As Tolerated Special Instructions: Take Augmentin for pneumonia. Wear oxygen at night or when sleeping. Follow up with Catherine GUERRERO within one week. Follow up with pulmonology. Increase Metoprolol from 25mg to 50mg daily. Copies to: CATHERINE CRESPO APRN-C ; Venous Thromboembolism Antithrombotics Is Pt On Any Antithrombotics?: Yes KAR HANSON May 28, 2019 09:43
[2019-05-28 09:44] VITALS: BP 101/83
--- NOTE | 2019-05-28 09:59 | Antimicrobial Stewardship ---
Antimicrobial Stewardship Empiricly appropriate: Yes Comment Return patient that had failed outpatient treatment for CAP. Started on Unasyn and now will be discharge on Doxycyline and Cefdinir. Patient does have adverse reaction to tetracycline reported as itching. However, patient is on amiodarone which leaves limited antibiotics that do not interact with amiodarone. Renal/Hepatic dosing: Yes Reviewed for Drug Interaction: Yes Clinically stable/improving: Yes IV to PO Opportunity: Yes Determine cumulative duration: 5-10 days YUE VASQUEZ May 28, 2019 09:59
[2019-05-30] MEDS ORDERED: Work Note (10:01)
== END 2019-05-28 10:40 | disposition home or self-care (01) | DRG 190 ==
LOC: ER 13:43 → MED 16:24
PROVIDERS: ADMIT Internal Medicine; ATTEND Internal Medicine
DX: J44.0 Chronic obstructive pulmonary disease with (acute) lower respiratory infection (principal); J18.9 Pneumonia, unspecified organism; N17.9 Acute kidney failure, unspecified; I48.2 Chronic atrial fibrillation; F17.210 Nicotine dependence, cigarettes, uncomplicated; D72.829 Elevated white blood cell count, unspecified; Z88.8 Allergy status to other drugs, medicaments and biological substances
CPT/HCPCS: 36415; 71045; 82040; 82247; 82310; 82374; 82435; 82565; 82570; 82947; 83690; 83880; 84075; 84132; 84155; 84295; 84300; 84450; 84460; 84484; 84520; 85025; 85610; 85730; 93005; 94640; 96361; 96374; 99284; A4216; J0295; J0696; J7030; J7120

== ENCOUNTER → 2019-05-30 | Outpatient (CLI) | payer BC ==
[2019-05-23 08:43] VITALS: BMI 24.8
[~2019-05-30] MED LIST changes: +DOXY-179 PO; +METO50TA19 PO
[2019-05-30 10:12] LABS: PLATELET COUNT, AUTOMATED 429 K/uL (150-450)
== END ==
LOC: LAB 09:56
PROVIDERS: ATTEND Nurse Practitioner Primary Care
DX: J18.1 Lobar pneumonia, unspecified organism (principal)
CPT/HCPCS: 36415; 82040; 82247; 82310; 82374; 82435; 82565; 82947; 84075; 84132; 84155; 84295; 84450; 84460; 84520; 85025